=== PATIENT | female | born 1985 | race Caucasian/White ===

== ENCOUNTER 2018-05-31 08:17 | Outpatient (CLI) | payer OTHER, SELFPAY ==
[2018-05-31 08:44] LABS: Abs Immature Grans 0.01 k/cumm (0.0-0.09); Absolute Basophil Count 0.01 k/cumm (0.0-0.2); Absolute Lymphocyte Count 1.73 k/cumm (1.2-3.4); Absolute Monocyte Count 0.34 k/cumm (0.11-0.7); Absolute Neutrophil Count 5.22 k/cumm (1.2-6.7); Basophils % 0.1; Eosinophils % 3.9; HCT 37.9 % (36.0-46.0); HGB 12.4 g/dL (12.0-15.5); Immature Grans % 0.1; Lymphocytes % 22.7; Mean Corp. HGB Concentration 32.7 g/dL (32.0-36.0); Mean Corpuscular Hemoglobin 27.6 pg (27.0-33.0); Mean Corpuscular Volume 84.4 fL (80-95); Mean Platelet Volume 9.8 fL (8.0-11.0); Monocytes % 4.5; Neutrophils % 68.7; Platelet Count 293 x1000/uL (130-400); RBC 4.49 m/cumm (4.00-5.20); RBC Distribution Width 13.1 % (11.7-14.6); White Blood Cell Count 7.61 k/cumm (4.4-10.8)
[2018-05-31 10:19] LABS: ALT 16 U/L (12-78); AST 13 U/L (15-37); Albumin 3.3 g/dL (3.4-5.0); Alkaline Phosphatase 73 U/L (46-116); Anion Gap 11.5 mmol/L (3-11); BUN 10 mg/dL (7-18); Bilirubin, Total 0.6 mg/dL (0.2-1.0); CO2 24.5 mmol/L (21.0-32.0); CREATININE 0.79 mg/dL (0.55-1.02); Calcium 8.7 mg/dL (8.5-10.1); Chloride 105 mmol/L (98-107); Cholesterol 265 mg/dL (50-200); Glucose 84 mg/dL (70-100); HDL Cholesterol 73 mg/dL (40-60); LDL CHOLESTEROL 162 mg/dL (<100); Potassium 4.2 mmol/L (3.5-5.1); Sodium 141 mmol/L (136-145); Total Protein 6.8 g/dL (6.4-8.2); Triglyceride 158 mg/dL (30-150)
== END 2018-05-31 08:37 ==
PROVIDERS: PCP Nurse Practitioner Family; Visit Provider Nurse Practitioner Family
DX: K62.5 Hemorrhage of anus and rectum (principal); E78.5 Hyperlipidemia, unspecified
CPT/HCPCS: 36415; 80053; 80061; 83721; 85025

== ENCOUNTER 2018-06-25 07:02 | Day surgery (SDC) | payer OTHER, SELFPAY ==
--- NOTE | 2018-06-25 06:31 | COLE_ITS ---
Date of service: 06/25/18 Time of Service: 08:25 Colonoscopy Report Date of procedure: 06/25/18 Pre-op diagnosis general: Intermittent rectal bleeding Post-op diagnosis procedure note: other (small internal hemorrhoids) Procedure: Colonoscopy Surgeon: Annamarie Kaur Anesthesia proc note operative: other (General/ Kimberley Chris,DATABASE SUPPORT / ASA 2) Estimated blood loss (mL): 0 Pathology: none sent Complications: None Disposition: same day Indications: Ms. Flores is a 32 year old female seen in the office for intermittent rectal bleeding. She has a family history of colon cancer in her grandmother. Risks, benefits and complications have been reviewed. Complications include but are not limited to bleeding, pain, perforation, missed small lesion/polyp, sore throat, aspiration and adverse reaction to the medications. Questions were entertained and answered to their satisfaction and they wished to proceed. No guarantees were given or implied. Prep: Miralax/Dulcolax Procedure Start Time: 08:25 Procedure End Time: 08:48 Retraction Time: 13 minutes Findings: Normal colon and terminal ileum Procedure Description: After informed consent was obtained the patient was taken to the procedure room and placed in a left decubitous position. Monitors were applied and a time out was done. The patients name, date of , procedure, allergies to medications and metal in their body was reviewed. The patient was then sedated. Once sedated and comfortable a rectal exam was done. External exam was normal. Internal exam revealed a normal sphincter tone and no palpable masses. The scope was then introduced and retro-flexed. Small internal hemorrhoids were identified. The scope was then advanced to the cecum with some difficulty due to tortuous colon. The TI and appendiceal orifice were identified. The prep was adequate. The scope was then slowly retracted over 13 minutes back into the rectum. There were no polyps and no diverticula. Terminal ileum was inspected and was normal. The scope was removed and the patient was woken up and taken back to Same day surgery in stable condition. The patient tolerated the procedure well and there were no immediate complications. Follow up: The patient should follow up at 51 years old unless they develop changes in bowel habits or other new gastrointestinal complaints.
--- NOTE | 2018-06-25 06:33 | W.PM.DSUDISC ---
Discharge Plan Disposition Patient Disposition: HOME Condition: Good Discharge Details Reason For Visit: Hx of intermittent rectal bleeding Attending Provider: Annamarie Kaur Primary Care Provider: Anastasia Langford Home Meds and New Rx's Prescriptions: Continued PNV cmb#95-ferrous fumarate-FA [] 1 EACH tablet 1 ea PO DAILY RF: 0 norgestimate-ethinyl estradiol [Ortho Tri-Cyclen (28)] 1 EACH tablet 1 tab-cap PO DAILY Qty: 3 RF: 4 Discontinued bisacodyl [Dulcolax (bisacodyl)] 5 mg tablet,delayed release (DR/EC) 5 mg PO ONCE Qty: 4 RF: 0 polyethylene glycol 3350 17 gram/dose powder 255 g PO ONCE Qty: 255 RF: 0 Discharge Instructions Instructions: Colonoscopy (DC), Hemorrhoids (DC) Additional Instructions: Findings: small internal hemorrhoids Follow up: at age 51 for your next colonoscopy Follow up with your PCP as needed Please call if you develop: fevers >101.5 Nausea or Vomiting Abdominal pain that is not transient DAY SURGERY UNIT POST COLONOSCOPY INSTRUCTIONS 1. Because there will be medication in your system for the next 24 hours, you may feel a little sleepy. Your coordination will be affected. Therefore: a. Do not drive or operate dangerous equipment for 24 hours. b. Do not drink alcohol beverages for 24 hours (not even beer). c. Plan to go home and rest for the day. 2. Generally there are no restrictions on your activity after a day or so has gone by, but you may feel a bit fatigued for a few days. 3 After you arrive home you may have a light meal and return to a normal diet as you can tolerate it without feeling sick to your stomach. 4. After surgery, you may feel pain or discomfort. This should be only transient, but if it persists please contact your doctor. 5. If there are any questions regarding the findings of your procedure, please feel free to contact your doctor. 6. If you are unable to contact your doctor with a problem, contact the hospital at [phone]. 7. Continue all your regular medications unless directed otherwise. I understand the above instructions and have no questions. Signature of Patient or Responsible Adult Escort Date/Time Name of Responsible Adult Escort Signature of Nurse Date/Time Activity:: Activity as Tolerated Diet:: As Tolerated Discharge Orders Discharge Orders: Discharge Order (Routine); Ordered 06/25/18 Ordered By: Annamarie Kaur DS: Diagnosis Discharge Diagnosis (1) Rectal hemorrhage: Status: Acute (2) S/P colonoscopy: Status: Acute (3) Internal hemorrhoids: Status: Acute
[2018-06-25 07:26] VITALS: BP 122/74; PULSE 102; RESP 19; TEMP 35.5; O2SAT 100
[2018-06-25] MEDS: Lactated Ringers 1,000 ML 80 ML IV (07:35)
[2018-06-25] MEDS: Midazolam/Ketamine/Ondansetron (3/25/2MG) 1 TAB 1 EACH SL (07:56)
[2018-06-25 09:32] VITALS: BP 97/63; PULSE 72; RESP 16; TEMP 36.5; O2SAT 100
[2018-06-25 09:50] VITALS: BP 110/63; PULSE 69
== END 2018-06-25 10:40 | disposition home or self-care (01) ==
LOC: SUR 07:02
PROVIDERS: PCP Nurse Practitioner Family; Visit Provider Surgery
PROC: 0DJD8ZZ Inspection of Lower Intestinal Tract, Via Natural or Artificial Opening Endoscopic (ICD-10-PCS; CPT 45378; principal; 2018-06-25 08:15)
DX: K64.8 Other hemorrhoids (principal); K62.5 Hemorrhage of anus and rectum; Z80.0 Family history of malignant neoplasm of digestive organs; Q43.8 Other specified congenital malformations of intestine
CPT/HCPCS: 45378; 81025

== ENCOUNTER 2018-08-26 14:23 | Outpatient (CLI) | payer OTHER, SELFPAY ==
[2018-08-26 15:00] LABS: Abs Immature Grans 0.02 k/cumm (0.0-0.09); Absolute Basophil Count 0.01 k/cumm (0.0-0.2); Absolute Eosinophil Count 0.08 k/cumm (0.0-0.7); Absolute Lymphocyte Count 1.23 k/cumm (1.2-3.4); Absolute Monocyte Count 0.53 k/cumm (0.11-0.7); Absolute Neutrophil Count 6.73 k/cumm (1.2-6.7); Basophils % 0.1; Eosinophils % 0.9; HCT 36.1 % (36.0-46.0); HGB 11.9 g/dL (12.0-15.5); Immature Grans % 0.2; Lymphocytes % 14.3; Mean Corpuscular Hemoglobin 27.8 pg (27.0-33.0); Mean Corpuscular Volume 84.3 fL (80-95); Mean Platelet Volume 9.3 fL (8.0-11.0); Monocytes % 6.2; Neutrophils % 78.3; Platelet Count 258 x1000/uL (130-400); RBC 4.28 m/cumm (4.00-5.20); RBC Distribution Width 13.1 % (11.7-14.6)
[2018-08-26 15:48] LABS: D-Dimer 684 ng/mlFEU (<500)
[2018-08-26 15:53] LABS: ALT 16 U/L (12-78); AST 12 U/L (15-37); Albumin 3.1 g/dL (3.4-5.0); Alkaline Phosphatase 93 U/L (46-116); Anion Gap 9.7 mmol/L (3-11); BUN 8 mg/dL (7-18); Bilirubin, Total 0.5 mg/dL (0.2-1.0); CO2 26.3 mmol/L (21.0-32.0); Calcium 8.2 mg/dL (8.5-10.1); Chloride 101 mmol/L (98-107); FREE T4 0.72 ng/dL (0.76-1.46); Glucose 116 mg/dL (70-100); Potassium 3.9 mmol/L (3.5-5.1); Sodium 137 mmol/L (136-145); Total Protein 6.5 g/dL (6.4-8.2)
== END 2018-08-26 14:43 ==
PROVIDERS: PCP Nurse Practitioner Family; Visit Provider Nurse Practitioner Family
DX: R05 Cough (principal); R06.02 Shortness of breath; R00.0 Tachycardia, unspecified
CPT/HCPCS: 36415; 80053; 84439; 84443; 85025; 85379

== ENCOUNTER 2018-08-26 17:25 | Emergency (ER) | payer OTHER, SELFPAY ==
--- NOTE | 2018-08-26 17:26 | DI.CT_ITS ---
SYMPTOM/DIAGNOSIS: SOB, ELEVATED D DIMER PE CHEST CT: CT angiography was performed with multi slice acquisition and multi planar and 3D reconstruction. CT scan of the chest was performed according to the pulmonary embolus protocol. No priors for comparison. There is no evidence of a pulmonary embolus. The thoracic aorta is of normal caliber. No evidence of dissection or aneurysm. Heart size is within normal limits. No significant pericardial effusion is seen. No evidence of right ventricular dysfunction is present. Mildly enlarged lymph nodes are seen in the left hilum which are likely reactive. No other significant thoracic adenopathy is appreciated. No pleural effusion or pneumothorax is identified. There is a nodular infiltrate seen in the left lower lobe, most suggestive of an infectious or inflammatory process. The lungs are otherwise clear. The tracheobronchial tree is unremarkable. The bones are intact. IMPRESSION: No evidence of a pulmonary embolus, thoracic aortic dissection or aneurysm. Air space infiltrate seen in the left lower lobe most suggestive of an infectious or inflammatory process.
[2018-08-26 17:34] VITALS: PULSE 105; RESP 19; TEMP 36.5; O2SAT 99
--- NOTE | 2018-08-26 17:45 | ED.GENADUL_ITS ---
Discharge Plan Disposition Patient Disposition: HOME Condition: Stable Discharge Details Chief Complaint: SOB Clinical Impression: Shortness of breath, D-dimer, elevated, CAP (community acquired pneumonia) Primary Care Provider: Anastasia Langford ED Provider: Eric Guadalupe Home Meds and New Rx's Prescriptions: New levofloxacin 750 mg tablet 750 mg PO DAILY Qty: 4 RF: 0 No Action PNV cmb#95-ferrous fumarate-FA [] 1 EACH tablet 1 ea PO DAILY RF: 0 Discharge Instructions Instructions: Community Acquired Pneumonia (ED) Additional Instructions: if not better in a week see your primary care provider if you feel you are becoming more ill, have worsening shortness of breath or persistent vomit return to the emergeny department Medical Decision Making 32 yo female who denies chronic medical problems comes in with chief complaint of cough for 7 days and shortness of breath since yesterday. Denies chest pain, n/v, fevers. She had labs done with her pcp today and she had a d dimer over 600 so was referred here. She is in no distress on exam with clear lungs, denies a ny recent surgerires or immobilization. She is noted to have low grade tachycadia in the 110's. She had an ekg at her pcp's office today which I reviewed showing sinus tachcyardia, rate of 108, no acute st twave ischemic findings. given her symptoms and elevated d dimer will obtian CTA to eval for PE and also pna. unlikely acs but will send troponin as well cta shows no Pe, does have small pneumonia. She is stable for outpatient management, advised f/u with pcp and return precautions given Imaging Data Radiologic Study: Attestation: I personally reviewed and interpreted this imaging study as follows: Imaging: CT Scan Radiologist's impression: IMPRESSION: Mild patchy somewhat nodular airspace disease/consolidation left lower lobe. Lab Data Lab results reviewed: Yes I reviewed the patient's lab results. HPI General Mode of arrival: ambulatory . Date/Time Provider Initiated Documentation: 08/26/18 17:26 . Limitations to Documentation: no limitations . Information obtained by: patient . History of Present Illness 32 year old F presents to the emergency department with the chief complaint of short of breath, described as moderate, Patient started experiencing this day(s) (1) and it has been constant. Rest improves symptom(s), Movement worsens symptoms . Patient notes cough. Patient did receive the following treatments prior to arrival, none Related Data Home Medications Medication Instructions Recorded Confirmed PNV cmb#95-ferrous fumarate-FA 1 ea PO DAILY 12/21/15 08/26/18 [] levofloxacin 750 mg PO DAILY #4 tab 08/26/18 Previous Rx's Medication Instructions Recorded levofloxacin 750 mg PO DAILY #4 tab 08/26/18 Allergies Allergy/AdvReac Type Severity Reaction Status Date / Time ACARIDES/MITES Allergy Unknown Uncoded 08/26/18 17:37 General Stated Complaint: SOB MARGO: 2 Review of Systems Review of Systems All systems reviewed & are unremarkable except as noted in HPI and below Constitutional Denies chills and Denies fever(s) Gastrointestinal Denies abdominal pain, Denies nausea and Denies vomiting Integumentary/Breasts Denies rash PFSH Medical History Internal hemorrhoids (Acute ~06/25/18) Generalized anxiety disorder (Chronic 12/07/17) Hyperlipidemia (Chronic 07/31/12) Irritable bowel syndrome with constipation and diarrhea (Chronic 12/07/17) Generalized anxiety disorder Hyperlipidemia Irritable bowel syndrome with constipation and diarrhea Surgical History S/P colonoscopy (Acute ~06/25/18) Repair, ACL (~2003) Dille teeth extraction (~2004) Family History Mother Diabetes Hyperlipidemia Hypothyroidism Asthma Father Diabetes Hyperlipidemia Sister Hyperlipidemia Grandfather Essential hypertension Depression Hyperlipidemia Hypothyroidism COPD (chronic obstructive pulmonary disease) Asthma Grandfather Myocardial infarction Lung cancer Grandmother Colon cancer Grandmother Diabetes Lung cancer Son No problems noted. Other Hypercholesterolemia Social History Smoking/Tobacco Use Status: Never Drug use: Never Do you feel safe at home: Yes Do you feel safe in your relationship?: Yes Exam Const General: no acute distress Orientation: alert HENMT Head: normal to inspection Ears: external ears normal General nose exam: external nose normal Mouth: moist mucous membranes Eyes General: appearance normal, both eyes and all related structures Neck Neck: normal visual inspection Resp Effort & Inspection: normal respiratory effort and able to speak in complete sentences Cardio Rate: tachycardic Skin General skin exam: no rashes or lesions noted Neuro General: alert and oriented x3 Extrem General: normal to inspection Psych Mental Status: mental status grossly normal Course Vital Signs Temperature 36.5 C 08/26/18 17:34 Pulse 105 H 08/26/18 17:34 Respiratory Rate 08/26/18 17:34 Pulse Oximetry 99 08/26/18 17:34 Temperature 36.5 C 08/26/18 17:34 Temperature Source Temporal Artery Scan 08/26/18 17:34 Pulse 105 H 08/26/18 17:34 Respiratory Rate 08/26/18 17:34 Pulse Oximetry 99 08/26/18 17:34 Oxygen Delivery Method Room Air 08/26/18 17:34 Oxygen Flow Rate 0 08/26/18 17:34 Pain Level 5 08/26/18 17:34
[2018-08-26 18:00] VITALS: RESP 18
[2018-08-26] MEDS: Normal Saline 1,000 ML 1000 ML IV (18:13)
[2018-08-26] MEDS: Omnipaque 350 MG/ML 100 ML BTL IJ (18:14)
[2018-08-26 18:16] LABS: INR 0.9 (0.9-1.1); PTT Activated 25.8 sec (21.0-31.4); Prothrombin Time 9.2 sec (9.3-11.0)
[2018-08-26 18:28] LABS: Troponin I < 0.02 ng/mL (0.00-0.06)
--- NOTE | 2018-08-26 18:57 | DI.VRAD_ITS ---
EXAM: CT Angiography Chest With Contrast EXAM DATE/TIME: 08/26/2018 5:27 PM CLINICAL HISTORY: 32 years old, female; Signs and symptoms and abnormal findings; Abnormal diagnostic tests; Elevated d-dimer; Cough and shortness of breath; Patient HX: SOB; Per PT: Cough for 7-10 days; TECHNIQUE: Imaging protocol: Axial computed tomographic angiography images of the chest with intravenous contrast using CT angiography protocol. Coronal and sagittal reformatted images were created and reviewed. 3D rendering: MIP reconstructed images were created and reviewed. COMPARISON: No relevant prior studies available. FINDINGS: Pulmonary arteries: Normal. No pulmonary emboli. Aorta: Normal. No aortic aneurysm. No aortic dissection. Lungs: Mild patchy somewhat nodular airspace disease/consolidation left lower lobe. Pleural space: Normal. No pneumothorax. No pleural effusion. Heart: Normal. No cardiomegaly. No pericardial effusion. Lymph nodes: Mildly prominent mediastinal and left hilar nodes. Bones/joints: Unremarkable. No acute fracture. Soft tissues: Unremarkable. IMPRESSION: Mild patchy somewhat nodular airspace disease/consolidation left lower lobe. Dictated and Authenticated by: Dada Cartagena MD. Ordering:RITCHIE Reyes MD
[2018-08-26] MEDS: levoFLOXacin 500 MG, levoFLOXacin 250 MG 750 MG PO (19:09)
== END 2018-08-26 19:15 | disposition home or self-care (01) ==
PROVIDERS: Emergency Provider Emergency Medicine; PCP Nurse Practitioner Family
DX: J18.9 Pneumonia, unspecified organism (principal); R79.1 Abnormal coagulation profile; R06.02 Shortness of breath
CPT/HCPCS: 36415; 71275; 81025; 96360; 99285; 84484; 85610; 85730; J3490

== ENCOUNTER 2018-09-12 08:51 | Outpatient (CLI) | payer OTHER, SELFPAY ==
--- NOTE | 2018-09-12 09:17 | DI.RAD_ITS ---
SYMPTOMS/DIAGNOSIS: CONTINUED SHORTNESS OF BREATH SINCE PNEUMONIA DIAGNOSIS/TREATMENT, R06.02, J18.9 PA AND LATERAL CHEST: The heart is normal in size. The lungs are clear. The mediastinal structures and pleura appear intact. CONCLUSION: Normal chest.
== END 2018-09-12 09:11 ==
PROVIDERS: PCP Nurse Practitioner Family; Visit Provider Nurse Practitioner Family
DX: J18.9 Pneumonia, unspecified organism (principal); R06.02 Shortness of breath
CPT/HCPCS: 71046

== ENCOUNTER 2018-12-31 13:33 | Outpatient (CLI) | payer BC, SELFPAY ==
[2018-12-31 14:17] LABS: HCG Quant, Pregnancy 2 mIU/mL (1-3)
== END 2018-12-31 13:53 ==
PROVIDERS: PCP Nurse Practitioner Family; Visit Provider Advanced Practice Midwife
DX: R58 Hemorrhage, not elsewhere classified (principal)
CPT/HCPCS: 36415; 84702

== ENCOUNTER 2019-02-14 11:42 | Outpatient (REF) | payer OTHER, SELFPAY ==
--- NOTE | 2019-02-14 10:40 | PAPFT_PTH ---
PATIENT: Mita Santiago LOC: [facility] U#:[id number] AGE/SX: 33/F ROOM: RE02/14/[address]: Juli Stone : 1985 BED: DIS: 02/14/2019 SPEC #: [id number] RECD: 02/14/19 13:09 STATUS: ELIZABET REAdama #: [id number] DENISE: 02/14/19 10:[address]: Juli Stone DEPT: [facility] Cytology RECD BY: Yesenia Rossi ENTERED: 02/14/19 13:10 SP TYPE: PAPFT OTHR DR: Anastasia Langford, REUBEN Tissues: 1 - CX/ENDOCX FOR PAP SMEARS Procedures: PAP THIN PREP/UVM Screening HPV DNA PROBE Comments: [id number]
[2019-02-17 14:51] LABS: Chlamydia Result Negative (Negative); GC Result Negative (Negative); Specimen Description CERVIX
== END 2019-02-14 12:02 ==
LOC: LBN 11:42
PROVIDERS: PCP Nurse Practitioner Family; Visit Provider Obstetrics & Gynecology Gynecology
DX: Z11.3 Encounter for screening for infections with a predominantly sexual mode of transmission (principal); Z12.4 Encounter for screening for malignant neoplasm of cervix; Z11.51 Encounter for screening for human papillomavirus (HPV)
CPT/HCPCS: 87491; 87591; 88142; 87624

== ENCOUNTER 2019-05-02 11:52 | Outpatient (REF) | payer OTHER, SELFPAY ==
[2019-05-02 13:44] LABS: *AMPHETAMINES SCREEN URINE Negative (Negative); *BARBITURATES SCREEN URINE Negative (Negative); *BENZODIAZEPINES SCREEN URINE Negative (Negative); Cannabinoids THC Negative (Negative); Cocaine Screen,Urine Negative (Negative); METHADONE URINE SCREEN Negative (Negative); OPIATES URINE SCREEN Negative (Negative)
[2019-05-02 13:47] LABS: Tricyclic Antidepressants Negative (Negative)
[2019-05-07 10:24] LABS: Buprenorphine Negative; Norbuprenorphine Negative
== END 2019-05-02 12:12 ==
LOC: LBN 11:52
PROVIDERS: PCP Nurse Practitioner Family; Visit Provider Advanced Practice Midwife
DX: Z34.91 Encounter for supervision of normal pregnancy, unspecified, first trimester (principal)
CPT/HCPCS: 80307; 87086

== ENCOUNTER 2019-05-09 02:38 | Outpatient (CLI) | payer OTHER, SELFPAY ==
[2019-05-09 08:51] LABS: Kit/Specimen SENT
[2019-05-09 09:04] LABS: Abs Immature Grans 0.02 k/cumm (0.0-0.09); Absolute Eosinophil Count 0.11 k/cumm (0.0-0.7); Absolute Lymphocyte Count 1.38 k/cumm (1.2-3.4); Absolute Monocyte Count 0.43 k/cumm (0.11-0.7); Absolute Neutrophil Count 4.51 k/cumm (1.2-6.7); Eosinophils % 1.7; HCT 35.9 % (36.0-46.0); HGB 11.7 g/dL (12.0-15.5); Immature Grans % 0.3 %; Lymphocytes % 21.4; Mean Corp. HGB Concentration 32.6 g/dL (32.0-36.0); Mean Corpuscular Hemoglobin 27.5 pg (27.0-33.0); Mean Corpuscular Volume 84.3 fL (80-95); Mean Platelet Volume 9.3 fL (8.0-11.0); Monocytes % 6.7; Neutrophils % 69.9; Platelet Count 276 x1000/uL (130-400); RBC 4.26 m/cumm (4.00-5.20); RBC Distribution Width 13.1 % (11.7-14.6); White Blood Cell Count 6.45 k/cumm (4.4-10.8)
[2019-05-09 09:11] LABS: Glucose,1 Hr (Glucola) 92 mg/dL (80-140)
[2019-05-09 09:46] LABS: TSH (W/Ref FT4) 2.01 uIU/mL (0.36-3.74)
[2019-05-10 16:19] LABS: Syphilis Total Ab w/Reflex Nonreactive (Nonreactive)
[2019-05-12 12:15] LABS: Hepatitis B Surface Ag Negative (Negative)
[2019-05-12 12:39] LABS: Hepatitis C Ab w Rflx HCV PCR Negative (Negative)
[2019-05-12 14:22] LABS: HIV-1/2 Ag & Ab Screen Negative (Negative)
[2019-05-12 15:13] LABS: Rubella IgG Ab (UVM) Positive (See Note); Varicella IgG Antibody Positive (See Note)
[2019-05-14 21:43] LABS: Specimen WB Whole Blood
== END 2019-05-09 02:58 ==
PROVIDERS: PCP Nurse Practitioner Family; Visit Provider Advanced Practice Midwife
DX: Z34.91 Encounter for supervision of normal pregnancy, unspecified, first trimester (principal); Z36.89 Encounter for other specified antenatal screening; Z11.4 Encounter for screening for human immunodeficiency virus [HIV]; Z11.59 Encounter for screening for other viral diseases; Z01.84 Encounter for antibody response examination
CPT/HCPCS: 36415; 81329; 82950; 86787; 86803; 86850; 86900; 86901; 87340; 87389; 84443; 85025; 86762; 86780

== ENCOUNTER 2019-05-30 14:15 | Outpatient (REF) | payer OTHER, SELFPAY ==
[2019-06-02 14:37] LABS: Chlamydia Result Negative (Negative); GC Result Negative (Negative)
== END 2019-05-30 14:35 ==
LOC: LBN 14:15
PROVIDERS: PCP Nurse Practitioner Family; Visit Provider Advanced Practice Midwife
DX: Z34.91 Encounter for supervision of normal pregnancy, unspecified, first trimester (principal); Z11.3 Encounter for screening for infections with a predominantly sexual mode of transmission
CPT/HCPCS: 87491; 87591

== ENCOUNTER 2019-06-30 02:06 | Outpatient (CLI) | payer OTHER, SELFPAY ==
[2019-07-02 12:09] LABS: Cigarette smoking status non-Smoker; GA used in risk estimate Dates estimate; IVF Pregnancy No; Initial or repeat testing Initial testing; Insulin dependent diabetes No; Maternal Weight 178 lbs; Number of Fetuses 1; Physician Phone Number 802-748-7300; Prev Pregnancy w/NTD No; RECOMMENDED FOLLOW UP None.; Results Summary Normal risk
== END 2019-06-30 02:26 ==
PROVIDERS: PCP Nurse Practitioner Family; Visit Provider Advanced Practice Midwife
DX: Z34.92 Encounter for supervision of normal pregnancy, unspecified, second trimester (principal); Z36.89 Encounter for other specified antenatal screening
CPT/HCPCS: 36415; 82105

== ENCOUNTER 2019-07-03 01:44 | Outpatient (CLI) | payer OTHER, SELFPAY ==
--- NOTE | 2019-07-03 10:58 | DI.US_ITS ---
EXAM: US OB 2-3 TRIMESTER CLINICAL HISTORY: 18 wk anatomy survey, Z34.90. TECHNIQUE: Transabdominal obstetrical ultrasound performed. COMPARISON: CERVICAL LENGTH TRANSVAG OB from 07/10/2016 FINDINGS: There is a single living intrauterine gestation. Fetus was in various positions during the examination. The placenta is anterior without evidence of previa No or placental abnormalities are identified. The heart rate is 152 beats per minute. Amniotic fluid is within normal limits visually. IMPRESSION: 1. Single live intrauterine gestation as above. 2. Normal anatomic survey. DATA REPOSITORY:
== END 2019-07-03 02:04 ==
PROVIDERS: PCP Nurse Practitioner Family; Visit Provider Advanced Practice Midwife
DX: Z34.92 Encounter for supervision of normal pregnancy, unspecified, second trimester (principal); Z3A.18 18 weeks gestation of pregnancy
CPT/HCPCS: 76805

== ENCOUNTER 2019-07-05 08:51 | Emergency (ER) | payer OTHER, SELFPAY ==
[2019-07-05 08:55] VITALS: BP 141/71; PULSE 98; RESP 18; TEMP 36.5; O2SAT 98
[2019-07-05 09:10] VITALS: RESP 16
--- NOTE | 2019-07-05 09:21 | ED.GENADUL_ITS ---
Discharge Plan Disposition Patient Disposition: HOME Condition: Stable Discharge Details Chief Complaint: GenMedical Clinical Impression: Encounter for wound care Primary Care Provider: Anastasia Langford ED Provider: Suzy Holland Home Meds and New Rx's Prescriptions: No Action ascorbic acid (vitamin C) 500 mg capsule PO DAILY RF: 0 Adult Probiotic 3 billion cell capsule 3,000 mmu cells PO DAILY RF: 0 iron 18 mg tablet 27 mg PO DAILY RF: 0 PNV cmb#95-ferrous fumarate-FA [] 1 EACH tablet 1 ea PO DAILY RF: 0 Discharge Instructions Instructions: Acute Wound Care (ED) Additional Instructions: Wash area gently with soap and water once or twice daily. Pat dry completely and apply topical antibiotic ointment and a dressing until wound is healed. Observe for any signs of infection. Return for any worsening, concerns or alarming symptoms sooner if needed Medical Decision Making Patient presents for wound check. Patient had skin tag removed 2 days ago. Patient is concerned that her dressing is adhered to her wound. Patient is requesting assistance in her wound management. Patient has no other concerns or complaints. Able to remove dressing without significant difficulty. Wound does appear well without signs of infection currently. Wound management discussed. The patient was stable and requested discharge. Prior to discharge, my usual and customary return precautions were reviewed with the patient - this included follow-up instructions and reasons to return to the Emergency Department if conditions worsens, does not improve as expected, or other new concerns arise. HPI General Date/Time Provider Initiated Documentation: 07/05/19 09:07 . HPI Narrative: Very pleasant 33-year-old patient presents for complaints of wound adhered to her dressing. Patient reports she had a skin tag removed 2 days ago. Patient was due to remove dressing after the first day but has been unable as the dressing is matted to her wound. Patient reports pain when attempting to remove the dressing. Patient reports a small amount of bleeding when she attempted to move the dressing. Patient denies any other concerns or complaints. Patient is currently 18 weeks . No other concerns at this time. Related Data Home Medications Medication Instructions Recorded Confirmed PNV cmb#95-ferrous fumarate-FA 1 ea PO DAILY 12/21/15 07/05/19 [] ascorbic acid (vitamin C) 500 mg mg PO DAILY cap 11/29/18 07/03/19 capsule lactobacillus combination no.8 3 3,000 mmu cells PO DAILY 11/29/18 07/05/19 billion cell capsule iron 18 mg tablet 27 mg PO DAILY tab 05/30/19 07/05/19 Allergies Allergy/AdvReac Type Severity Reaction Status Date / Time ACARIDES/MITES Allergy Unknown Uncoded 07/05/19 09:00 General Stated Complaint: GenMedical MARGO: 4 Review of Systems Constitutional Constitutional: Denies chills and Denies fever(s) Gastrointestinal Gastrointestinal: Denies abdominal pain Integumentary/Breasts Skin/Breast: Denies erythema, Denies skin swelling and Reports wounds [facility] Medical History Generalized anxiety disorder (Chronic) Hyperlipidemia (Chronic) Internal hemorrhoids (Inactive) Irritable bowel syndrome with constipation and diarrhea (Chronic) Left carpal tunnel syndrome (Inactive) Social History Smoking/Tobacco Use Status: Never Alcohol Intake: current Alcohol Intake frequency: holidays/special occasions only Alcohol type: hard liquor Drug use: Never Substance use type: does not use Caregiver/Support person: No Household members: spouse and children Housing: house Number of Children: 1 Education Level: college Details: 4yrs current occupation: [employer]. Pets and animals: Yes Pets and animals: dog(s) Sexually active: Yes Do you think of yourself as: straight/heterosexual Current gender identity: female What is your relationship status?: How often do you talk on the phone with friends or family?: three or more times per week How often do you get together with friends or relatives?: three or more times per week How often do you attend yazidi or shinto services?: decline to answer Do you belong to any clubs or organized social groups?: yes Panel score (0-1 are the most socially isolated patients): 3 What type of physical activity do you participate in: other Details: home exercises and yoga Duration: 15-30 minutes/day Frequency: 3-4 times per week Kylee/Mosque: None Special kylee needs: No Seatbelt use: always Helmet use: Yes Helmet use: always Drive intox or ride w/intox sales warehouse driver: No Do you feel safe at home: Yes Do you feel safe in your relationship?: Yes Female Reproductive History Menstrual control method: none History History 3 Para 1 Hx # Term Pregnancies 1 Multiple births 0 Hx # Pregnancies 0 Ectopic pregnancies 0 AB induced 0 Hx Number of Living Children 1 AB spontaneous 1 Past Pregnancies Del. Date GA/Weeks # Outcome Route Wgt Sex Labor Lgth Anesthes ia Location [facility] 08/14/16 38 No Successful vaginal 2.778 kg Male 8 hrs N VR - [facility] [employer] ([facility]) 01/08/19 Unsuccessful Delivery Date: 08/14/16 On 05/02/19 @ 09:49 Lorene Marcelino SROM at home, spont labor, no complications Delivery Date: 01/08/19 On 05/02/19 @ 10:13 Lorene Marcelino SAB, had unsatisfactory experience with staff, didn't feel well treated Exam Narrative Exam Narrative: CONST: Healthy appearing patient, in no acute distress. Well hydrated. Alert and oriented. GI: Gravid abdomen. Abdomen is soft. Small wound approximately 1 cm noted to the right lower quadrant area. Wound dressing adhered to the wound. Wound dressing fairly easily removed without sign of complication. Wound edges well approximated. Mild drainage present no surrounding erythema, ecchymosis present surrounding. SKIN: Normal. Dry. No rashes. NEURO: Alert and awake. Speech clear. PSYCH: Normal affect. Cooperative. Course Vital Signs Vital signs: Vital Signs Temperature 36.5 C 07/05/19 08:55 Pulse 98 H 07/05/19 08:55 Respiratory Rate 18 07/05/19 08:55 Blood Pressure 141/71 H 07/05/19 08:55 Pulse Oximetry 98 07/05/19 08:55 Temperature 36.5 C 07/05/19 08:55 Temperature Source Tympanic 07/05/19 08:55 Pulse 98 H 07/05/19 08:55 Respiratory Rate 16 07/05/19 09:10 Respiratory Effort Non-Labored 07/05/19 09:10 Respiratory Depth Normal 07/05/19 09:10 Respiratory Pattern Normal 07/05/19 09:10 Blood Pressure 141/71 H 07/05/19 08:55 Blood Pressure Position Sitting 07/05/19 08:55 Pulse Oximetry 98 07/05/19 08:55 Oxygen Delivery Method Room Air 07/05/19 08:55 Oxygen Flow Rate 0 07/05/19 08:55 Pain Level 0 07/05/19 08:55
== END 2019-07-05 09:24 | disposition home or self-care (01) ==
PROVIDERS: Emergency Provider Physician Assistant; PCP Nurse Practitioner Family
DX: O99.89 Other specified diseases and conditions complicating pregnancy, childbirth and the puerperium (principal); Z48.00 Encounter for change or removal of nonsurgical wound dressing; Z3A.18 18 weeks gestation of pregnancy
CPT/HCPCS: 99281

== ENCOUNTER 2019-08-20 13:33 | Outpatient (REF) | payer OTHER, SELFPAY ==
[2019-08-22 11:01] LABS: Campylobacter PCR Negative (Negative); Salmonella PCR Negative (Negative); Shiga Toxin PCR Negative (Negative); Shigella/Enteroinvasive Ecoli Negative (Negative)
== END 2019-08-20 13:53 ==
LOC: LBN 13:33
PROVIDERS: PCP Nurse Practitioner Family; Visit Provider Nurse Practitioner Family
DX: R19.5 Other fecal abnormalities (principal)
CPT/HCPCS: 87329; 87505

== ENCOUNTER 2019-08-22 02:11 | Outpatient (CLI) | payer OTHER, SELFPAY ==
[2019-08-22 10:16] LABS: HCT 32.2 % (36.0-46.0); HGB 10.6 g/dL (12.0-15.5); Mean Corp. HGB Concentration 32.9 g/dL (32.0-36.0); Mean Corpuscular Volume 85.2 fL (80-95); Mean Platelet Volume 9.3 fL (8.0-11.0); Platelet Count 277 x1000/uL (130-400); RBC 3.78 m/cumm (4.00-5.20); RBC Distribution Width 13.5 % (11.7-14.6)
[2019-08-22 11:18] LABS: ALT 21 U/L (14-59); AST 13 U/L (15-37); Albumin 2.7 g/dL (3.4-5.0); Alkaline Phosphatase 82 U/L (46-116); Anion Gap 10.4 mmol/L (3-11); BUN 8 mg/dL (7-18); Bilirubin, Total 0.4 mg/dL (0.2-1.0); CO2 22.6 mmol/L (21.0-32.0); CREATININE 0.66 mg/dL (0.55-1.02); Calcium 8.3 mg/dL (8.5-10.1); Chloride 104 mmol/L (98-107); Glucose 133 mg/dL (74-106); Potassium 3.5 mmol/L (3.5-5.1); Sodium 137 mmol/L (136-145); Total Protein 6.1 g/dL (6.4-8.2)
== END 2019-08-22 02:31 ==
PROVIDERS: PCP Nurse Practitioner Family; Visit Provider Nurse Practitioner Family
DX: R19.5 Other fecal abnormalities (principal)
CPT/HCPCS: 36415; 80053; 85027

== ENCOUNTER 2019-09-11 12:01 | Outpatient (CLI) | payer OTHER, SELFPAY ==
[2019-09-11 12:37] LABS: HCT 32.9 % (36.0-46.0); HGB 10.6 g/dL (12.0-15.5); Mean Corp. HGB Concentration 32.2 g/dL (32.0-36.0); Mean Corpuscular Hemoglobin 27.7 pg (27.0-33.0); Mean Corpuscular Volume 85.9 fL (80-95); Mean Platelet Volume 9.4 fL (8.0-11.0); Platelet Count 288 x1000/uL (130-400); RBC 3.83 m/cumm (4.00-5.20); RBC Distribution Width 13.5 % (11.7-14.6); White Blood Cell Count 10.34 k/cumm (4.4-10.8)
[2019-09-11 12:49] LABS: Glucose,1 Hr (Glucola) 122 mg/dL (80-140)
== END 2019-09-11 12:21 ==
PROVIDERS: PCP Nurse Practitioner Family; Visit Provider Advanced Practice Midwife
DX: Z34.92 Encounter for supervision of normal pregnancy, unspecified, second trimester (principal)
CPT/HCPCS: 82950; 85027

== ENCOUNTER 2019-10-22 18:29 | Outpatient (CLI) | payer OTHER, SELFPAY | END 2019-10-22 18:49 | PROVIDERS: PCP Nurse Practitioner Family; Referring Provider Advanced Practice Midwife; Visit Provider Advanced Practice Midwife | DX: O60.03 Preterm labor without delivery, third trimester (principal); Z3A.34 34 weeks gestation of pregnancy | CPT/HCPCS: 59025 ==

== ENCOUNTER 2019-11-03 10:11 | Outpatient (CLI) | payer OTHER, SELFPAY | END 2019-11-03 10:31 | PROVIDERS: PCP Nurse Practitioner Family | DX: Z39.1 Encounter for care and examination of lactating mother (principal) | CPT/HCPCS: E0602 ==

== ENCOUNTER 2019-11-03 13:28 | Outpatient (REF) | payer OTHER, SELFPAY ==
[2019-11-03 17:20] LABS: *AMPHETAMINES SCREEN URINE Negative (Negative); *BARBITURATES SCREEN URINE Negative (Negative); *BENZODIAZEPINES SCREEN URINE Negative (Negative); Cannabinoids THC Negative (Negative); Cocaine Screen,Urine Negative (Negative); METHADONE URINE SCREEN Negative (Negative); OPIATES URINE SCREEN Negative (Negative)
[2019-11-03 17:23] LABS: Tricyclic Antidepressants Negative (Negative)
[2019-11-08 12:49] LABS: Buprenorphine Negative; Norbuprenorphine Negative
== END 2019-11-03 13:48 ==
LOC: LBN 13:28
PROVIDERS: PCP Nurse Practitioner Family; Visit Provider Advanced Practice Midwife
DX: Z34.93 Encounter for supervision of normal pregnancy, unspecified, third trimester (principal); Z36.85 Encounter for antenatal screening for Streptococcus B
CPT/HCPCS: 80307; 87081

== ENCOUNTER 2019-11-06 13:05 | Outpatient (CLI) | payer OTHER, SELFPAY ==
[2019-11-08 23:59] LABS: COVID-19 RT-PCR Result NEGATIVE (Negative)
== END 2019-11-06 13:25 ==
PROVIDERS: PCP Nurse Practitioner Family; Visit Provider Advanced Practice Midwife
DX: O60.03 Preterm labor without delivery, third trimester (principal); Z3A.36 36 weeks gestation of pregnancy; Z11.59 Encounter for screening for other viral diseases
CPT/HCPCS: U0003; 59025

== ENCOUNTER 2019-11-10 07:33 | Observation (INO) | payer OTHER, SELFPAY ==
[2019-11-10] MEDS: Terbutaline 1 MG/ML VIAL 0.25 MG SC (08:41)
[2019-11-10] MEDS: Lactated Ringers 1,000 ML 200 ML IV (08:45)
--- NOTE | 2019-11-10 12:42 | W.PM.OP ---
Date of service: 11/10/19 Time of Service: 12:43 Operative Note Operative Note DATE OF PROCEDURE: 11/10/19 PRE-OP DIAGNOSIS: Breech presentation POST-OP DIAGNOSIS: same PROCEDURE: Attempted external cephalic version SURGEON: Juli Stone HAND [employer]: Christie Neely COMPLICATIONS: None Patient was transported to: no change Patient's condition: stable Indications: Patient is a 34-year-old G3, P1 female currently at 37 weeks estimated gestational age fetus was diagnosed as a breech presentation several weeks ago. Patient was counseled regarding treatment options and has agreed to a external cephalic version. She was counseled beforehand regarding the procedure including the risk of damage to the fetus and placenta requiring a emergent delivery. She was also counseled that 50% chance of failure to achieve a vertex presentation Findings: Viable infant with head to maternal left and spine down corresponding to maternal spine. Subjectively adequate amniotic fluid. Procedure Description: Patient was admitted for observation status on the center. An IV was placed in the left antecubital space and she received 0.25 mg of subcutaneous terbutaline. heart rate category 1 tracing occasional contractions noted on external tocometer. After verbal consent was obtained the patient was placed in the dorsal supine position and breech presentation was confirmed by bedside ultrasound. A single gloved hand was used to elevate the presenting part of the fetus from the pelvis while single of hand was used to gently guide the cranium and leftward counterclockwise direction. Unable to head past 90 degrees over the course of 1-1/2 minutes of downward traction. Patient was given option of a repeat attempt at external cephalic version which she accepted. Repeat ultrasound evaluation of the fetus confirmed similar presentation with spine tumor maternal spine. Once again the presenting part was lifted out of the pelvis and an attempt at a counterclockwise manipulation of the fetus and trunk was attempted and was once again unsuccessful. Intermittent heart rate monitoring was reassuring. Patient was uncomfortable but tolerated it well. The procedure was Concluded and the patient was counseled regarding treatment options including a delivery. She will follow-up in the office this week to discuss planning a delivery date. Patient was also counseled regarding signs and symptoms of rupture membranes fluid leakage bleeding and uterine contractions.
--- NOTE | 2019-11-11 09:06 | W.PM.OP ---
Operative Note Operative Note DATE OF PROCEDURE: 11/10/19 PRE-OP DIAGNOSIS: Breech presentation POST-OP DIAGNOSIS: same PROCEDURE: Attempted external cephalic version SURGEON: Juli Stone CYBER SECURITY ANALYST: Christie Neely ANESTHESIA: none ESTIMATED BLOOD LOSS: 0 COMPLICATIONS: None Patient was transported to: no change Patient's condition: stable Implants: Attempted external cephalic version Indications: 34-year-old female currently 37 weeks estimated stational age with a known breech presentation. Patient was counseled regarding external cephalic version versus expectant management as agreed to external cephalic version. Findings: Fetus in a complete breech presentation with spine to maternal back and head in the left upper quadrant. Anterior placenta Procedure Description: After verbal consent was obtained patient received 0.25 mg terbutaline injection. Approximately 15 minutes after the injection she was placed in the dorsal supine position and gentle pressure was made above the pubic symphysis in an effort to direct the presenting part out of the pelvis. The head was then gently directed clockwise to approximately 3 o'clock position on the maternal abdomen. There was no forward progress made and the procedure was halted and position and heart rate checked. heart rate was in the 150s and position had reverted to breech. After period of recovery for the patient the procedure was attempted again once again using a clockwise direction with no progress beyond a 3 o'clock position. The procedure was stopped heart rate was again checked and remained in the 150s. presenting part remained breech. Patient was observed for approximately 45 minutes with continuous monitoring with occasional contractions noted and a category 1 heart rate tracing.
== END 2019-11-10 10:10 | disposition home or self-care (01) ==
PROVIDERS: Admitting Provider Obstetrics & Gynecology Gynecology; PCP Nurse Practitioner Family; Visit Provider Obstetrics & Gynecology Gynecology
DX: O32.1XX0 Maternal care for breech presentation, not applicable or unspecified (principal); Z3A.37 37 weeks gestation of pregnancy
CPT/HCPCS: 59412; 96360; G0378

== ENCOUNTER 2019-11-18 03:52 | Outpatient (CLI) | payer OTHER, SELFPAY ==
[2019-11-18 11:45] LABS: HCT 35.3 % (36.0-46.0); HGB 11.3 g/dL (12.0-15.5); Mean Corpuscular Hemoglobin 26.9 pg (27.0-33.0); Mean Platelet Volume 10.2 fL (8.0-11.0); Platelet Count 282 x1000/uL (130-400); RBC Distribution Width 15.8 % (11.7-14.6); White Blood Cell Count 12.08 k/cumm (4.4-10.8)
== END 2019-11-18 04:12 ==
PROVIDERS: PCP Nurse Practitioner Family; Visit Provider Obstetrics & Gynecology
DX: Z01.818 Encounter for other preprocedural examination (principal)
CPT/HCPCS: 36415; 85027; 86850; 86900; 86901

== ENCOUNTER 2019-11-18 08:18 | Outpatient (CLI) | payer OTHER, SELFPAY ==
[2019-11-20 08:21] LABS: COVID-19 RT-PCR Result NEGATIVE (Negative)
== END 2019-11-18 08:38 ==
PROVIDERS: PCP Nurse Practitioner Family; Visit Provider Obstetrics & Gynecology Gynecology
DX: Z11.59 Encounter for screening for other viral diseases (principal)
CPT/HCPCS: U0003

== ENCOUNTER 2019-11-21 10:28 | Inpatient (IN) | payer OTHER, SELFPAY ==
[2019-11-21 10:45] VITALS: BP 131/86; PULSE 86; RESP 16; TEMP 36.5; O2SAT 94
--- NOTE | 2019-11-21 11:06 | W.PM.PROGNOT ---
Date of Service Date of service: 11/21/19 Time of Service: 11:06 Subjective Subjective Interval history since last seen: Patient was seen in the preoperative holding area this morning. Bedside ultrasound performed, confirming fetus in the breech presentation back up footling. Patient continues to have strong and regular contractions. We again had a lengthy conversation regarding operative delivery and its risks and benefits. We also discussed her antibiotic regime. She has had some oral lesions shortly after antibiotic therapy with penicillin derivatives. She also has been seen with the allergy clinic at [facility] and would prefer not to have penicillin based antibiotics. Clindamycin and gentamicin ordered for her preoperative regime. Objective Objective Clinical Data: Vital Signs Temperature 97.7 F 11/21/19 10:45 Pulse 86 11/21/19 10:45 Pulse Rhythm Regular 11/21/19 10:45 Respiratory Rate 16 11/21/19 10:45 Respiratory Depth Normal 11/21/19 10:45 Blood Pressure 131/86 11/21/19 10:45 Pulse Oximetry 94 L 11/21/19 10:45 Oxygen Delivery Method Room Air 11/21/19 10:45 Oxygen Flow Rate 0 11/21/19 10:45 Intake & Output 11/20/19 11/20/19 11/21/19 11:59 23:59 11:59 Weight 209 lb 15.986 oz
[2019-11-21] MEDS: Lactated Ringers 1,000 ML 125 ML IV (11:50)
[2019-11-21] MEDS: CLINDAMYCIN 900 MG/50 ML BAG 50 MG IVPB (12:10)
--- NOTE | 2019-11-21 13:55 | ROE_ITS ---
Date of service: 11/21/19 Time of Service: 13:55 Operative Note Operative Note DATE OF PROCEDURE: 11/21/19 PRE-OP DIAGNOSIS: at 38-5/7 weeks, breech presentation, contractions PROCEDURE: Primary low transverse section ASSISTING SURGEON: Sam Lazaro ANESTHESIA: spinal ESTIMATED BLOOD LOSS: 500 PATHOLOGY: none sent COMPLICATIONS: None Patient was transported to: floor Patient's condition: stable Indications: Term , known breech presentation, early labor, significant history of anxiety Findings: Viable female infant delivered from the breech presentation Procedure Description: Patient is a 34-year-old 2 para 1 with a known breech presentation. She had attempted and failed external cephalic version. She requests primary section. The risks, benefits, and alternatives of procedure explained to the patient fluting risk of infection, bleeding, injury to surrounding organs, anesthetic risk, thromboembolic risk, anesthesia risk, risk of , and small but present risk of distress or respiratory distress Patient was taken to the operating suite with IV running. She was placed in the seated position and spinal anesthesia tested administered and found to be adequate. She was then placed in dorsal supine position with leftward tilt and prepped and draped in usual sterile fashion. Mcarthur catheter was inserted for continuous bladder drainage. Compression stockings were placed. Pfannenstiel skin incision was made usual fashion carried down to the underlying fascia. Fascia was nicked in the midline and extended laterally. Rectus muscles identified split in the midline peritoneum identified tented up and entered sharply. The peritoneal incision was then extended superiorly and inferiorly and a DeLee bladder blade was inserted. The vesicouterine peritoneum was identified and bladder flap created. A low transverse uterine incision was made in the uterus and extended bluntly laterally. She had artificial rupture of membranes for clear fluid. Baby was noted to be in the single footling breech presentation. The sacrum was delivered through the uterine incision and with gentle downward traction the body delivered to the point that scapulas were weakened. With clockwise rotation the left arm was delivered and co unterclockwise rotation delivered the right arm gentle elevation of the body with the head allowed him to deliver without trauma. There is no evidence of nuchal cord. Three-vessel cord was noted clamped x2 and cut and the was handed off to the waiting buffing wheel former machine. At this point cord blood gases cord blood sample were both obtained. Delivered with manual expression. Uterus exteriorized and cleared of all clot and debris. The uterine incision was closed in a double layer fashion with the first layer of #1 Monocryl in a running locked fashion and a second imbricating stitch of 0 Vicryl. There was one area at the right apex of the incision with a distal extension and a modified O'Watkins stitch placed to control hemostasis. At this point the abdomen was irrigated with copious amounts of normal saline the uterine incision was reexplored and found to be completely hemostatic and instruments were removed from the abdomen. The fascial incision was then closed using 0 Vicryl suture in a running fashion subcutaneous tissue irrigated with copious amounts of normal saline and reapproximated with 2-0 Vicryl in a simple interrupted fashion. Skin edge was closed with 4-0 Monocryl in a subcuticular fashion Steri-Strips were placed. Patient was then returned to a labor bed and returned to the obstetric floor. Findings were delivered of a viable female infant with Apgars of 8 and 9. Weight is pending. Delivered in the breech presentation. As of note, there is a small, approximately 2 cm left fundal fibroid at the time of delivery. Uterus tubes and ovaries were normal. Blood loss approximately 500 cc fluids are crystalloid per anesthesia at 800 cc Mcarthur catheter is in place draining clear yellow urine. Complications are none apparent.
[2019-11-21] MEDS: Normal Saline Flush 10 ML SYR IV ×2 (17:22→20:42)
[2019-11-21] MEDS: Metoclopramide 10 MG/2 ML VIAL IVP (17:23)
[2019-11-21] MEDS: Ketorolac 30 MG/ML VIAL IVP (20:41)
[2019-11-22] MEDS: Ketorolac 30 MG/ML VIAL IVP ×2 (02:11→10:10)
[2019-11-22 07:09] LABS: HCT 29.3 % (36.0-46.0); HGB 9.4 g/dL (12.0-15.5); Mean Corp. HGB Concentration 32.1 g/dL (32.0-36.0); Mean Corpuscular Hemoglobin 27.2 pg (27.0-33.0); Mean Corpuscular Volume 84.9 fL (80-95); Mean Platelet Volume 9.6 fL (8.0-11.0); Platelet Count 212 x1000/uL (130-400); RBC 3.45 m/cumm (4.00-5.20); RBC Distribution Width 16.1 % (11.7-14.6); White Blood Cell Count 12.36 k/cumm (4.4-10.8)
[2019-11-22] MEDS: Normal Saline Flush 10 ML SYR IV (10:09)
[2019-11-22] MEDS: Acetaminophen 325 MG TAB 650 MG PO ×2 (13:41→18:23)
[2019-11-22] MEDS: Ibuprofen 600 MG TAB (16:51)
[2019-11-22] MEDS: Docusate Sodium 100 MG CAP PO (16:51)
[2019-11-22] MEDS: oxyCODONE 5 mg/Acetaminophen 325 mg TAB PO (19:21)
[2019-11-23] MEDS: oxyCODONE 5 mg/Acetaminophen 325 mg TAB PO ×7 (00:15→22:55)
--- NOTE | 2019-11-23 08:15 | W.PM.PROGNOT ---
Date of Service Date of service: 11/22/19 Time of Service: 08:15 Assessment and Plan Assessment and plan (1) S/P section: Status: Acute Assessment and plan: Continue routine post op care. Encourage ambulation. Subjective Subjective Interval history since last seen: Doing well. Pain well controlled. Not yet ambulatory Tolerating regular diet. No nausea or vomiting. Objective Objective Clinical Data: Vital Signs Temperature 97.7 F 11/21/19 10:45 Pulse 86 11/21/19 10:45 Pulse Rhythm Regular 11/21/19 10:45 Respiratory Rate 16 11/21/19 10:45 Respiratory Depth Normal 11/21/19 10:45 Blood Pressure 131/86 11/21/19 10:45 Pulse Oximetry 94 L 11/21/19 10:45 Oxygen Delivery Method Room Air 11/21/19 10:45 Oxygen Flow Rate 0 11/21/19 10:45 Pain Level 4 11/23/19 05:40 Laboratory Results WBC 12.36 k/cumm (4.4-10.8) H 11/22/19 07:00 RBC 3.45 m/cumm (4.00-5.20) L 11/22/19 07:00 Hgb 9.4 g/dL (12.0-15.5) L 11/22/19 07:00 Hct 29.3 % (36.0-46.0) L 11/22/19 07:00 MCV 84.9 fL (80-95) 11/22/19 07:00 MCH 27.2 pg (27.0-33.0) 11/22/19 07:00 MCHC 32.1 g/dL (32.0-36.0) 11/22/19 07:00 RDW 16.1 % (11.7-14.6) H 11/22/19 07:00 Plt Count 212 x1000/uL (130-400) 11/22/19 07:00 MPV 9.6 fL (8.0-11.0) 11/22/19 07:00
--- NOTE | 2019-11-23 08:18 | W.PM.PROGNOT ---
Date of Service Date of service: 11/23/19 Time of Service: 08:18 Assessment and Plan Assessment and plan (1) S/P section: Status: Acute Assessment and plan: Uncomplicated postoperative course. Plan for discharge home tomorrow. May discharge home as early as this afternoon if desired. Subjective Subjective Interval history since last seen: No problems this morning Pain well controlled Ambulatory Tolerating regular diet . Minimal lochia Exam GI Other: Incision C/D/I - Dressing removed. Objective Objective Clinical Data: Vital Signs Temperature 97.7 F 11/21/19 10:45 Pulse 86 11/21/19 10:45 Pulse Rhythm Regular 11/21/19 10:45 Respiratory Rate 16 11/21/19 10:45 Respiratory Depth Normal 11/21/19 10:45 Blood Pressure 131/86 11/21/19 10:45 Pulse Oximetry 94 L 11/21/19 10:45 Oxygen Delivery Method Room Air 11/21/19 10:45 Oxygen Flow Rate 0 11/21/19 10:45 Pain Level 4 11/23/19 05:40 Laboratory Results WBC 12.36 k/cumm (4.4-10.8) H 11/22/19 07:00 RBC 3.45 m/cumm (4.00-5.20) L 11/22/19 07:00 Hgb 9.4 g/dL (12.0-15.5) L 11/22/19 07:00 Hct 29.3 % (36.0-46.0) L 11/22/19 07:00 MCV 84.9 fL (80-95) 11/22/19 07:00 MCH 27.2 pg (27.0-33.0) 11/22/19 07:00 MCHC 32.1 g/dL (32.0-36.0) 11/22/19 07:00 RDW 16.1 % (11.7-14.6) H 11/22/19 07:00 Plt Count 212 x1000/uL (130-400) 11/22/19 07:00 MPV 9.6 fL (8.0-11.0) 11/22/19 07:00
[2019-11-23] MEDS: Docusate Sodium 100 MG CAP PO ×2 (09:00→22:55)
[2019-11-23] MEDS: Ibuprofen 600 MG TAB PO ×2 (09:00→22:55)
[2019-11-24] MEDS: oxyCODONE 5 mg/Acetaminophen 325 mg TAB PO ×3 (03:06→12:31)
[2019-11-24] MEDS: Ibuprofen 600 MG TAB PO (06:44)
--- NOTE | 2019-11-24 08:38 | W.PM.PROGNOT ---
Date of Service Date of service: 11/24/19 Time of Service: 08:38 Assessment and Plan Assessment and plan (1) S/P section: Status: Acute Assessment and plan: Doing well. Has met all postoperative milestones. Plan for discharge home today. Subjective Subjective Interval history since last seen: Doing well today. Pain remains well controlled with percocet and motrin Ambulatory Tolerating regular diet. No nausea or vomiting Objective Objective Clinical Data: Vital Signs Temperature 97.7 F 11/21/19 10:45 Pulse 86 11/21/19 10:45 Pulse Rhythm Regular 11/21/19 10:45 Respiratory Rate 16 11/21/19 10:45 Respiratory Depth Normal 11/21/19 10:45 Blood Pressure 131/86 11/21/19 10:45 Pulse Oximetry 94 L 11/21/19 10:45 Oxygen Delivery Method Room Air 11/21/19 10:45 Oxygen Flow Rate 0 11/21/19 10:45 Pain Level 3 11/24/19 08:02 Laboratory Results WBC 12.36 k/cumm (4.4-10.8) H 11/22/19 07:00 RBC 3.45 m/cumm (4.00-5.20) L 11/22/19 07:00 Hgb 9.4 g/dL (12.0-15.5) L 11/22/19 07:00 Hct 29.3 % (36.0-46.0) L 11/22/19 07:00 MCV 84.9 fL (80-95) 11/22/19 07:00 MCH 27.2 pg (27.0-33.0) 11/22/19 07:00 MCHC 32.1 g/dL (32.0-36.0) 11/22/19 07:00 RDW 16.1 % (11.7-14.6) H 11/22/19 07:00 Plt Count 212 x1000/uL (130-400) 11/22/19 07:00 MPV 9.6 fL (8.0-11.0) 11/22/19 07:00
== END 2019-11-24 13:45 | disposition home or self-care (01) | DRG 788 ==
LOC: PDS 13:29 → OBS 13:33
PROVIDERS: Admitting Provider Obstetrics & Gynecology; PCP Nurse Practitioner Family; Visit Provider Obstetrics & Gynecology
PROC: 10D00Z1 Extraction of Products of Conception, Low, Open Approach (ICD-10-PCS; CPT 59514; principal; 2019-11-21 12:00)
DX: O32.1XX0 Maternal care for breech presentation, not applicable or unspecified (principal); Z37.0 Single live birth; Z3A.38 38 weeks gestation of pregnancy; O99.344 Other mental disorders complicating childbirth; F41.9 Anxiety disorder, unspecified
CPT/HCPCS: 59514; 36415; 85027; 99232; 99233; J1580; J1885; J2370; J2405; J2765; J3010

== ENCOUNTER 2020-05-28 15:32 | Outpatient (REF) | payer OTHER, SELFPAY | END 2020-05-28 15:52 | LOC: LBN 15:32 | PROVIDERS: PCP Nurse Practitioner Family; Visit Provider Obstetrics & Gynecology | DX: N89.8 Other specified noninflammatory disorders of vagina (principal) | CPT/HCPCS: 87480; 87510; 87660 ==

== ENCOUNTER 2020-08-16 19:06 | Outpatient (REF) | payer OTHER, SELFPAY ==
[2020-08-18 13:31] LABS: COVID-19 RT-PCR UVMMC Result Positive (Negative)
== END 2020-08-16 19:07 | disposition home or self-care (01) ==
LOC: LBN 19:06
PROVIDERS: PCP Nurse Practitioner Family; Visit Provider Family Medicine
DX: Z20.822 Contact with and (suspected) exposure to COVID-19 (principal); R05 Cough
CPT/HCPCS: U0003

== ENCOUNTER 2020-11-18 03:30 | Outpatient (CLI) | payer OTHER, SELFPAY ==
[2020-11-18 09:35] LABS: HCT 40.7 % (36.0-46.0); MCHC 31.9 % (32.0-36.0); MCV 84.4 fL (80-95); MPV 9.2 fL (8.0-11.0); Platelet Count 313 10^3/uL (130-400); RBC 4.82 10^6/uL (3.93-5.22); RDW 13.4 % (11.7-14.6); RDW-SD 41.5 fL; WBC 7.68 10^3/uL (4.4-10.8)
[2020-11-18 09:48] LABS: Prothrombin Time 9.9 sec (9.3-11.0)
[2020-11-18 10:48] LABS: ALT 26 U/L (14-59); AST 15 U/L (15-37); Albumin 3.9 g/dL (3.4-5.0); Alkaline Phosphatase 108 U/L (46-116); Anion Gap 8.1 mmol/L (3-11); BUN 9 mg/dL (7-18); Bilirubin, Total 0.8 mg/dL (0.2-1.0); CO2 27.9 mmol/L (21.0-32.0); CREATININE 0.9 mg/dL (0.55-1.02); Calcium 8.6 mg/dL (8.5-10.1); Chloride 107 mmol/L (98-107); Glucose 87 mg/dL (74-106); Potassium 4.1 mmol/L (3.5-5.1); Sodium 143 mmol/L (136-145); Total Protein 6.9 g/dL (6.4-8.2)
== END 2020-11-18 03:31 | disposition home or self-care (01) ==
LOC: LBO 03:30
PROVIDERS: PCP Nurse Practitioner Family; Visit Provider Nurse Practitioner Family
DX: R23.3 Spontaneous ecchymoses (principal); L85.3 Xerosis cutis
CPT/HCPCS: 36415; 80053; 85027; 84443; 85610

== ENCOUNTER 2021-04-19 11:45 | Outpatient (CLI) | payer OTHER, SELFPAY ==
--- NOTE | 2021-04-19 10:30 | DI.RAD_ITS ---
Exam(s) XR LUMBAR SPINE COMPLETE EXAM: XR LUMBAR SPINE COMPLETE CLINICAL HISTORY: vertebral alignment M54.50 LOW BACK PAIN. TECHNIQUE: 2D digital imaging was performed of the lumbar spine. Five images were obtained. AP, la teral, right oblique, left oblique and L5-S1 spot views were obtained. COMPARISON: No exams were available for comparison FINDINGS: BONES: No fracture or destructive lesion. Vertebral bodies are unremarkable. No facet hypertrophy byron ntified. DISKS: There is mild disc space narrowing at L5-S1. Small osteophytes are seen at the endplates at L4 -5. ALIGNMENT: Lumbar spinal alignment is within normal limits. No spondylolysis or spondylolisthesis. SOFT TISSUE: Normal. IMPRESSION: Mild degenerative changes in the lumbar spine. DATA REPOSITORY: RADIATION DOSE DELIVERED:
== END 2021-04-19 12:05 ==
PROVIDERS: PCP Nurse Practitioner Family; Visit Provider Nurse Practitioner Family
DX: M54.59 Other low back pain (principal); M51.37 Other intervertebral disc degeneration, lumbosacral region
CPT/HCPCS: 72110

== ENCOUNTER 2021-07-04 04:47 | Outpatient (CLI) | payer OTHER, SELFPAY ==
--- NOTE | 2021-07-04 13:00 | NS.NUTBLAN_ITS ---
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 She continues to have no taste and experiences bad odors and flavors on daily basis. She has lost 50 lbs in last year. 5'3 150 lbs BMI 27.5. Has maintained current weight for > 30 days and is happy with current weight. Appears well nourished. Estimated Needs: [id number] kcal, 70-75 g protein, 45-60 g fat Supplements: 50 mg zinc, vitamin, Calcium with D, Acidophilus, super greens, Vitamin C, zoloft, susan Diet Recall: Breakfast: yogurt with berries Lunch: brown rice with cranberries, cheese in tortilla Dinner: WW pasta with mozzarella and carrot sticks other: gingerale, chocolate, cheese stick Estimated Macronutrients: 1740 kca, 50 g protein, 40 g fat Current diet intake meeting 100% of calorie needs, 70% protein needs and 90% fat needs. With vitamin supplementation, is meeting micronutrient needs, however, needs to increase protein intake to meet 100% of macro needs. Session today focused on ways to increase protein with current foods she can tolerate. Recommended using an wilner called [employer] in order to track macro nutrient intake during day. May consider taking a protein shake to supplement. Reviewed natural remedies to enhance appetite /flavor by using lemon juice, anderson and /or vinegar to flavor foods. to d/c zinc as should not be taken > 14 days and should be cycled q 3 months. May benefit from seeing a Cargo Vessel Stewardess for additional treatments to aid in hunger/flavor/appetite. No follow up planned at this time.
== END 2021-07-04 04:48 | disposition home or self-care (01) ==
PROVIDERS: PCP Nurse Practitioner Family; Visit Provider Dietitian, Registered
DX: R43.1 Parosmia (principal); Z86.16 Personal history of COVID-19; Z71.3 Dietary counseling and surveillance
CPT/HCPCS: 97802

== ENCOUNTER 2021-12-19 15:55 | Outpatient (REF) | payer OTHER, SELFPAY | END 2021-12-19 15:56 | disposition home or self-care (01) | LOC: LBN 15:55 | PROVIDERS: PCP Nurse Practitioner Family; Visit Provider Advanced Practice Midwife | DX: R30.0 Dysuria (principal); R10.2 Pelvic and perineal pain | CPT/HCPCS: 87086; 87480; 87510; 87660 ==

== ENCOUNTER 2022-06-16 00:47 | Outpatient (CLI) | payer OTHER, SELFPAY ==
--- NOTE | 2022-06-16 07:15 | DI.RAD_ITS ---
Exam(s) XR LUMBAR SPINE COMPLETE EXAM: XR LUMBAR SPINE COMPLETE CLINICAL HISTORY: Increase in left hip pain, radiates TO BACK,M54.50. TECHNIQUE: 2D digital imaging was performed. Five views. COMPARISON: CR XR LUMBAR SPINE COMPLETE from 04/19/2021 FINDINGS: BONES: No fracture or destructive lesion. Vertebral body heights are maintained. No facet hypertroph y identified. DISKS: There has been further narrowing of the L5-S1 disc space, now moderate to severe. There are s mall endplate osteophytes. The remaining intervertebral disc spaces are maintained. ALIGNMENT: Lumbar spinal alignment is within normal limits. SOFT TISSUE: Normal. IMPRESSION: Worsening degenerative disc changes at L5-S1. DATA REPOSITORY: RADIATION DOSE DELIVERED:
== END 2022-06-16 01:07 ==
LOC: DI 00:48
PROVIDERS: PCP Nurse Practitioner Family; Visit Provider Nurse Practitioner Family
DX: M47.817 Spondylosis without myelopathy or radiculopathy, lumbosacral region (principal)
CPT/HCPCS: 72110

== ENCOUNTER 2022-07-17 11:46 | Outpatient (REF) | payer OTHER, SELFPAY ==
--- NOTE | 2022-07-17 11:00 | PAPFT_PTH ---
PATIENT: Mita Santiago LOC: [facility]IA #:[id number] AGE/SX: 36/F ROOM: RE07/17/[address]: Juli Stone : 1985 BED: DIS: 07/17/2022 SPEC #: [id number] RECD: 07/17/22 13:05 STATUS: ELIZABET REAdama #: [id number] DENISE: 07/17/22 11:[address]: Juli Stone DEPT: [facility] Cytology RECD BY: Yesenia Rossi ENTERED: 07/17/22 13:05 SP TYPE: PAPFT OTHR DR: Anastasia Langford, WINDOW SHADE CUTTER Tissues: 1 - CX/ENDOCX FOR PAP SMEARS Procedures: PAP THIN PREP/[facility] Screening HPV DNA PROBE Comments: [id number]
== END 2022-07-17 11:47 | disposition home or self-care (01) ==
LOC: LBN 11:46
PROVIDERS: PCP Nurse Practitioner Family; Visit Provider Obstetrics & Gynecology Gynecology
DX: Z12.4 Encounter for screening for malignant neoplasm of cervix (principal); Z11.51 Encounter for screening for human papillomavirus (HPV)
CPT/HCPCS: 88142; 87624

== ENCOUNTER 2022-11-07 16:09 | Outpatient (REF) | payer OTHER, SELFPAY | END 2022-11-07 16:10 | disposition home or self-care (01) | LOC: LBN 16:09 | PROVIDERS: PCP Nurse Practitioner Family; Visit Provider Obstetrics & Gynecology | DX: N94.89 Other specified conditions associated with female genital organs and menstrual cycle (principal); N76.0 Acute vaginitis | CPT/HCPCS: 87480; 87510; 87660 ==

== ENCOUNTER 2022-11-27 14:40 | Emergency (ER) | payer OTHER, SELFPAY ==
[2022-11-27 14:48] VITALS: BP 118/67; PULSE 73; RESP 16; TEMP 36.9; O2SAT 100
--- NOTE | 2022-11-27 16:17 | ED.GENADUL_ITS ---
Discharge Plan Disposition Patient Disposition: Home Discharge Details Clinical Impression: Urinary incontinence Primary Care Provider: Anastasia Langford ED Provider: Francisco Garza Home Meds and New Rx's Prescriptions: Continued Adult Probiotic 3 billion cell capsule 3,000 mmu cells PO DAILY ascorbic acid (vitamin C) 500 mg capsule 1,000 mg PO DAILY multivitamin Tablet 1 tab PO DAILY calcium citrate-vitamin D3 1,000 mg-10 mcg /30 mL liquid 30 ml PO DAILY sertraline 25 mg tablet 25 mg PO DAILY Qty: 90 3RF Rx Instructions: Take 1 tab daily Discontinued fluconazole [Diflucan] 150 mg tablet 150 mg PO ONCE Qty: 3 2RF Patient Comments: pt reports not taking 11/27/22 Rx Instructions: Repeat every 72hrs x3 doses. Discharge Instructions Instructions: Urinary Incontinence (ED) Additional Instructions: At this time I feel there is low concern for need of emergent MRI. As discussed if you have any new or significant worsening of symptoms please return immediately to the emergency department for reassessment and reconsideration of emergent imaging. Please continue to monitor your symptoms and follow-up with your primary care provider to further discuss your urinary incontinence. Referrals: Anastasia Langford, FINISH CLEANER [Primary Care Provider] - 1 week (As needed for reassessment) Discharge Data Discharge Date/Time-TO BE ENTERED AT DEPARTURE: 11/27/22 17:31 Medical Decision Making Patient presenting to the emergency department for chief complaint of urinary incontinence. Patient reports on Sunday after walking a decent amount she had episode of incontinence. She states that due to having children she has incontinence issues but usually with stress such as coughing, laughing, jumping or lifting. She reports that she was not doing any of these when it occurred. She also states that approximately 2 weeks ago she had episode of stool incontinence but states that she has IBS and does have these episodes where she emergently needs to use the restroom but unfortunately this time she did not make it to the restroom. Patient has history of chronic back pain with MRI performed in July which showed bulging disc which she believes was L5-S1. She is pending a pain clinic appointment for back injection. Patient denies any recent injury or trauma, fever chills, and states she just finished her period last week. Physical exam shows lower lumbar tenderness to palpation, normal DTRs, normal sensation, normal gait, no weakness to extremities, no saddle anesthesia and patient reporting normal bowel and bladder function since Sunday. Patient was seen by primary care provider who did have slight concern for cauda equina. I have low suspicion of this given how comfortable patient appears, that she has had resumption and normal bowel and bladder movements since the episode on Sunday, states chronic back pain with slow slight worsening but reports that she has not been doing her appropriate PT exercises to help with her back pain. Unfortunately MRI services are not available at time patient is presenting to the emergency department. Due to this we will check a postvoid residual and further discuss options with patient. Patient is not , urinalysis is nondiagnostic with no signs of infection, and postvoid residual with 3 repeat scans was 0. Discussed with patient low likelihood of this being cauda equina but that I could not fully rule this out due to inability to perform MRI. Patient also has severe claustrophobia and we do not have open MRI. After full discussion and shared decision-making was utilized patient will continue to monitor symptoms, given that she has had no other major events of urinary incontinence or bowel incontinence she will follow-up with primary care provider or return for new or worsening symptoms. Patient did state clear understanding that we were unable to fully rule out emergent diagnosis but at the same time there is low suspicion for this given physical exam and mostly resolution of symptoms. After discussion of diagnosis and plan of care patient has no further needs, questions, or concerns and states clear understanding to return to the emergency department for any worsening symptoms. This documentation was generated using Agile[employer] dictation system, please disregard any oddities of phrase or misspellings. HPI General Mode of arrival: ambulatory . Date/Time Provider Initiated Documentation: 11/27/22 14:50 . Limitations to Documentation: no limitations . Information obtained by: patient and RN notes reviewed . History of Present Illness 37 year old F presents to the emergency department with the chief complaint of Urinary incontinence, described as moderate, Patient started experiencing this day(s) (3) and it has been now resolved. No relieving factors improve symptom(s), No exacerbating factors reported . Patient did receive the following treatments prior to arrival, none Related Data Home Medications Medication Instructions Recorded Confirmed lactobacillus combination no.8 3 3,000 mmu cells PO DAILY 11/29/18 11/27/22 billion cell capsule (Adult Probiotic) ascorbic acid (vitamin C) 500 mg 1,000 mg PO DAILY 03/31/21 11/27/22 capsule multivitamin 1 tab PO DAILY 12/19/21 11/27/22 calcium cit 1,000 mg calcium-vit 30 ml PO DAILY 07/17/22 11/27/22 D3 10 mcg(400 unit)/30 mL oral liquid sertraline 25 mg tablet 25 mg PO DAILY #90 tabs 10/02/22 11/27/22 Previous Rx's Medication Instructions Recorded sertraline 25 mg tablet 25 mg PO DAILY #90 tabs 10/02/22 Allergies Allergy/AdvReac Type Severity Reaction Status Date / Time amoxicillin [From Augmentin] Allergy Intermediate Oral Verified 11/27/22 14:54 mucosal pain and redness clavulanic acid Allergy Intermediate Oral Verified 11/27/22 14:54 [From Augmentin] mucosal pain and redness Penicillins Allergy Intermediate Verified 11/27/22 14:54 Cephalosporins Allergy Unknown Verified 11/27/22 14:54 dust mites Allergy Uncoded 11/27/22 14:54 General Stated Complaint: GenMedical MARGO: 3 Review of Systems Constitutional Constitutional: Denies chills, Denies fever(s) and Denies weakness ENT Ears, Nose, Mouth, and Throat: Denies disequilibrium Cardiovascular Cardiovascular: Denies chest pain and Denies dyspnea on exertion Respiratory Respiratory: Denies cough and Denies dyspnea on exertion Gastrointestinal Gastrointestinal: Denies abdominal pain, Denies change in bowel habits, Denies diarrhea, Denies nausea and Denies vomiting Genitourinary Genitourinary: Reports as per HPI, Reports hematuria, Denies pelvic pain, Reports urinary incontinence, Denies urinary hesitancy and Denies urinary urgency Musculoskeletal Musculoskeletal: Reports back pain, Denies muscle weakness, Denies numbness and Denies tingling Neurologic Neurologic: Denies numbness, Denies sensory deficit, Denies tingling, Denies disequilibrium and Denies weakness PFSH All Active Problems (Updated 11/27/22 @ 17:18 by Francisco Garza NP) Left carpal tunnel syndrome (Chronic) Irritable bowel syndrome with constipation and diarrhea (Chronic) Hyperlipidemia (Chronic) Generalized anxiety disorder (Chronic) Internal hemorrhoids (Chronic) Parosmia (Chronic) Long COVID (Chronic) Lumbar back pain with radiculopathy affecting lower extremity (Chronic) Degenerative joint disease (DJD) of lumbar spine (Chronic) MRI 07/2022 Urinary incontinence (Acute) Medical History COVID-19 virus infection Positive PCR 08/16/20 Surgical History History of repair of anterior cruciate ligament of right knee (03/09/04) S/P section (11/21/19) LTCS. Breech. [id number]. Malorie. S/P colonoscopy (06/25/18) Family History Mother Hyperlipidemia Hypothyroidism Asthma Type 2 diabetes mellitus Hypertension Father Hyperlipidemia Type 2 diabetes mellitus Sister Hyperlipidemia Depression Palindromic rheumatism Suspected Pericarditis Son No problems noted. Daughter No problems noted. Paternal Grandfather , in his 60s Myocardial infarction Heart disease Lung cancer Hyperlipidemia Alcohol abuse Paternal Grandmother , at 81 Lung cancer Type 2 diabetes mellitus Maternal Grandfather Alcohol abuse COPD (chronic obstructive pulmonary disease) Depression Heart disease Hyperlipidemia Hypertension Hypothyroidism Maternal Grandmother Colon cancer Social History Smoking/Tobacco Use Status: Never Second Hand Exposure: Yes Smoking risk assessment performed?: Yes Alcohol Intake: former Drug use: Never Substance use type: does not use Caregiver/Support person: No Household members: spouse and children Housing: house Number of Children: 2 Communication Needs: None Education Level: college Details: 4yrs Do you need help understanding health information?: Rarely current occupation: [employer]. [employer]. Pets and animals: Yes Pets and animals: cat(s) Sexually active: Yes Do you think of yourself as: straight/heterosexual Current gender identity: female What is your relationship status?: How often do you talk on the phone with friends or family?: twice per week How often do you get together with friends or relatives?: three or more times per week How often do you attend cheondoism or gnosticism services?: decline to answer Do you belong to any clubs or organized social groups?: yes Panel score (0-1 are the most socially isolated patients): 3 What type of physical activity do you participate in: aerobic, regular exercise, other Details: [place] class, [employer] and yoga Duration: 60-90 minutes/day Frequency: 1-2 times per week Kylee/Christian: None Special kylee needs: No Seatbelt use: always Helmet use: Yes Helmet use: always Drive intox or ride w/intox catering driver: No Do you feel safe at home: Yes Do you feel safe in your relationship?: Yes Additional Social history: husnand in room Female Reproductive History Menstrual control method: none History History 3 Para 2 Hx # Term Pregnancies 2 Multiple births 0 Hx # Pregnancies 0 Ectopic pregnancies 0 AB induced 0 Hx Number of Living Children 1 AB spontaneous 1 Past Pregnancies Del. 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 Unsuccessful ECV. Malorie. Exam Const General: cooperative and no acute distress Orientation: alert, awake and oriented x3 Neck Neck: normal visual inspection, full ROM and no meningeal signs Resp Effort & Inspection: normal respiratory effort Auscultation: clear to auscultation bilaterally Cardio Rate: regular rate Rhythm: regular rhythm Heart Sounds: S1 normal and S2 normal GI Palpation: no hepatosplenomegaly, no aortic enlargement, no masses and no pulsatile masses Back/Spine/Pelvis Thoracic/Lumbar Spine: pain with thoraco-lumbar ROM, No paraspinal tenderness, No thoracic spinal tenderness and lumbar spinal tenderness (L4) Pelvis: sciatic notch tenderness on the right and on the left Neuro General: patient alert, patient awake and patient oriented x3 DTR's: Rt Patellar: 2+, Lt Patellar: 2+, Rt Ankle: 2+ and Lt Ankle: 2+ Course Vital Signs Vital signs: Vital Signs Temperature 36.9 C 11/27/22 14:48 Pulse 73 11/27/22 14:48 Respiratory Rate 16 11/27/22 14:48 Blood Pressure 118/67 11/27/22 14:48 Pulse Oximetry 100 11/27/22 14:48 Temperature 36.9 C 11/27/22 14:48 Temperature Source Skin 11/27/22 14:48 Pulse 73 11/27/22 14:48 Respiratory Rate 16 11/27/22 14:48 Blood Pressure 118/67 11/27/22 14:48 Blood Pressure Position Sitting 11/27/22 14:48 Pulse Oximetry 100 11/27/22 14:48 Oxygen Delivery Method Room Air 11/27/22 14:48 Oxygen Flow Rate 0 11/27/22 14:48 Pain Level 7 11/27/22 14:48
[2022-11-27 16:42] LABS: Bilirubin Negative (Negative); Blood Trace-intact (Negative); Clarity Clear (Clear); Glucose Negative (Negative); Ketones Negative (Negative); Leukocyte Esterase Negative (Negative); Nitrite Negative (Negative); pH 6.5 (5-8)
[2022-11-27 16:50] LABS: Bacteria Negative HPF (Negative); C & S Indicated? No; Casts Negative LPF (Negative); Crystals Negative HPF (Negative); Epithelial Cells Few HPF (Negative); Mucus Negative (Negative); RBC 0-2 HPF (0-2); WBC 0-2 HPF (0-5)
[2022-11-27 17:30] VITALS: BP 120/70
== END 2022-11-27 17:31 | disposition home or self-care (01) ==
PROVIDERS: Emergency Provider Nurse Practitioner Family; PCP Nurse Practitioner Family
DX: R32 Unspecified urinary incontinence (principal)
CPT/HCPCS: 81003; 81015

== ENCOUNTER 2023-01-03 04:04 | Outpatient (CLI) | payer OTHER, SELFPAY ==
[2023-01-03 09:08] LABS: Anion Gap 8.6 mmol/L (3-11); BUN 12 mg/dL (7-18); CO2 25.4 mmol/L (21.0-32.0); CREATININE 0.8 mg/dL (0.55-1.02); Calcium 8.9 mg/dL (8.5-10.1); Calculated LDL 189 mg/dL (<100); Chloride 103 mmol/L (98-107); Cholesterol 281 mg/dL (<200); Estimated GFR 97.87 (mL/min/1.73m2); Glucose 95 mg/dL (74-106); HDL Cholesterol 76 mg/dL (40-60); Potassium 4.1 mmol/L (3.5-5.1); Sodium 137 mmol/L (136-145); TSH (W/Ref FT4) 2.58 uIU/mL (0.36-3.74); Triglyceride 81 mg/dL (<150)
== END 2023-01-03 04:05 | disposition home or self-care (01) ==
LOC: LBO 04:04
PROVIDERS: PCP Nurse Practitioner Family; Visit Provider Nurse Practitioner Family
DX: E78.5 Hyperlipidemia, unspecified (principal)
CPT/HCPCS: 36415; 80048; 80061; 84443

== ENCOUNTER 2023-01-18 08:20 | Outpatient (CLI) | payer OTHER, SELFPAY ==
--- NOTE | 2023-01-18 06:00 | DI.RAD_ITS ---
Exam(s) XR PAIN CLINIC SACRIOILIAC 2V EXAM: XR PAIN CLINIC SACRIOILIAC 2V CLINICAL HISTORY: DX: Sacroiliac Joint Dysfunction TECHNIQUE: 2D and realtime digital imaging was performed. CONTRAST MATERIAL: Refer to procedure report. COMPARISON: No exams were available for comparison FINDINGS: Fluoroscopy was provided for Dr. Pinto during the performance of a left sacroiliac joint injection. Please refer to the procedure report for complete details. Ka,r=12 mGy IMPRESSION:
[2023-01-18 08:34] VITALS: BP 123/64; PULSE 77; RESP 20; O2SAT 98
[2023-01-18 10:09] VITALS: BP 120/72; PULSE 79; RESP 14; O2SAT 100
[2023-01-18] MEDS: methylPREDNISolone ACETATE 80 MG/ML VIAL IJ (10:21)
[2023-01-18] MEDS: Omnipaque 240 MG/ML 50 ML BTL IJ (10:21)
--- NOTE | 2023-01-18 10:24 | PDOC.PAIN_ITS ---
Date of service: 01/18/23 Time of Service: 10:24 Pain Managment Procedure Note Procedure Note Procedure Note: PROCEDURE NOTE BILATERAL INTRA-ARTICULAR SACROILIAC JOINT INJECTION Date of Service: January 18, 2023 Patient: Mita Santiago Provider: Dada Pinto DO, MPH COMMENTS: I previously evaluated the patient in the office and their symptoms in relation to the sacroiliac joint pain have remained the same. She took 1 mg of Ativan from her prescription after I consented her 1 hour prior to this procedure. Secondary to her anxiety, her was present for this procedure. He did wear a lead vest. Pre-operative diagnosis: Sacroiliac joint dysfunction Post-operative diagnosis: Same Pre-procedure pain: VAS= 6/10 Mita Santiago has been referred to our [facility] for a Bilateral intra-articular Sacroiliac joint injection. Mita was interviewed and the medical record reviewed. There were no medical, pharmacologic, radiographic or other structural contraindications to attempting a fluoroscopically-guided, contrast-enhanced, intra-articular Sacroiliac joint injection. The risks, benefits, and potential side effects of this procedure were reviewed with the patient. Questions and concerns were addressed. After it was clear that Mita was fully informed about the procedure, the printed consent form was signed by the patient and myself. Mita was placed in the prone position on the fluoroscopy table and an automated blood pressure cuff, 3 lead EKG, and pulse oximeter were applied. The skin entry point for approaching the Right sacroiliac joint was identified under the most advantageous fluoroscopic view and marked. Following thorough Chlorhexadine preparation of the skin and draping with sterile surgical drapes, 2 mls of 1% lidocaine was infiltrated into the skin at the entry point and the surrounding subcutaneous tissues. Next, a 3.5 22G spinal needle was placed under fluoroscopic guidance into the Right sacroiliac joint. Intra-articular placement was confirmed by a clear arthrogram resulting from the injection of 0.25ml of Omnipaque-240. Next, 1 ml of Depo- Medrol 40 mg/ml was injected intra-articularly with an initial reproduction of a significant component of the usual pain. This was followed with 1 ml of 1% Lidocaine. The needle was then removed without difficulty. (49 ml of Omnipaque-240 was wasted). The exact procedure was completed on the opposite sacroiliac joint. Mita's vital signs were stable throughout the procedure and were as recorded in nursing records. Follow up plans and appointments were discussed with Mita. Post procedure instructions were given as documented in nursing records. Having met discharge criteria, Mita was discharged from the [facility]. COMMENTS: Post-procedure pain: VAS= 0/10. If the patient receives at least 50% improvement in pain and/or function for at least 3 months, this procedure can be repeated if needed. She will start her home exercise program back up in 2 days. I personally performed this entire procedure. DADA PINTO DO, MPH ABPMR-subspecialty board certification in Pain Medicine [facility]
== END 2023-01-18 08:21 | disposition home or self-care (01) ==
LOC: PC 08:20
PROVIDERS: PCP Nurse Practitioner Family; Visit Provider Preventive Medicine Occupational Medicine
DX: M46.1 Sacroiliitis, not elsewhere classified (principal)
CPT/HCPCS: 27096; 72200; J1040; Q9967

== ENCOUNTER 2023-03-01 23:00 | Emergency (ER) | payer OTHER, SELFPAY ==
[2023-03-01 23:03] VITALS: BP 159/77; PULSE 92; RESP 14; TEMP 37; O2SAT 100
--- NOTE | 2023-03-01 23:21 | W.ED.GENAD ---
Discharge Plan Disposition Patient Disposition: Home Condition: Improving Discharge Details Chief Complaint: Laceration Clinical Impression: Laceration of face Primary Care Provider: Anastasia Langford ED Provider: Jameson Tirado Home Meds and New Rx's Prescriptions: No Action Adult Probiotic 3 billion cell capsule 3,000 mmu cells PO DAILY multivitamin Tablet 1 tab PO DAILY sertraline 25 mg tablet 25 mg PO DAILY Qty: 90 3RF Rx Instructions: Take 1 tab daily lorazepam 1 mg tablet 1 mg PO ONCE Qty: 3 0RF Rx Instructions: Take 15-30min before procedure Discharge Instructions Instructions: Facial Laceration (ED) Additional Instructions: Please keep wound clean and dry, use ibuprofen and/or acetaminophen as needed for pain and swelling. Please return to the emergency department for any worsening symptoms Medical Decision Making 37-year-old female presents after sustaining 2 cm lunate superficial laceration to left maxillary soft tissue, nongaping, no foreign body, hemostatic, extraocular motion intact no proptosis no ocular injury, normal bite strength no malocclusion; neurologically intact hemodynamically stable. We will clean wound, given nongaping superficial nature will closed with Steri-Strips, home care instructions and return precautions given. HPI General Date/Time Provider Initiated Documentation: 03/01/23 23:20. HPI Narrative: 37-year-old female presents after accidentally running into the door of her car, sustaining superficial laceration to her left cheek, up-to-date on tetanus, no loss of conscious Related Data Home Medications Medication Instructions Recorded Confirmed lactobacillus combination no.8 3 3,000 mmu cells PO DAILY 11/29/18 02/14/23 billion cell capsule (Adult Probiotic) multivitamin 1 tab PO DAILY 12/19/21 02/14/23 sertraline 25 mg tablet 25 mg PO DAILY #90 tabs 10/02/22 02/14/23 lorazepam 1 mg tablet 1 mg PO ONCE #3 tabs 01/17/23 02/14/23 Previous Rx's Medication Instructions Recorded sertraline 25 mg tablet 25 mg PO DAILY #90 tabs 10/02/22 lorazepam 1 mg tablet 1 mg PO ONCE #3 tabs 01/17/23 Allergies Allergy/AdvReac Type Severity Reaction Status Date / Time amoxicillin [From Augmentin] Allergy Intermediate Oral Verified 02/14/23 07:52 mucosal pain and redness clavulanic acid Allergy Intermediate Oral Verified 02/14/23 07:52 [From Augmentin] mucosal pain and redness Penicillins Allergy Intermediate Verified 02/14/23 07:52 Cephalosporins Allergy Unknown Verified 02/14/23 07:52 dust mites Allergy Uncoded 02/14/23 07:52 General Stated Complaint: Laceration MARGO: 4 Review of Systems Narrative: Review of Systems Constitutional: negative Eyes: negative ENT: negative Cardiovascular: negative Respiratory: negative Gastrointestinal: negative : negative Musculoskeletal: negative Skin: Facial laceration Neurologic: negative Psych: negative PFSH All Active Problems (Updated 03/01/23 @ 23:48 by Jameson Tirado MD) Laceration of face (Acute) Sacroiliac joint dysfunction of both sides (Acute) Degenerative joint disease (DJD) of lumbar spine (Chronic) MRI 07/2022 Lumbar back pain with radiculopathy affecting lower extremity (Chronic) Long COVID (Chronic) Parosmia (Chronic) Internal hemorrhoids (Chronic) Generalized anxiety disorder (Chronic) Hyperlipidemia (Chronic) Irritable bowel syndrome with constipation and diarrhea (Chronic) Left carpal tunnel syndrome (Chronic) Medical History COVID-19 virus infection Positive PCR 08/16/20 Surgical History [place] teeth removed S/P section (11/21/19) LTCS. Breech. [id number]. Malorie. History of repair of anterior cruciate ligament of right knee (03/09/04) S/P colonoscopy (06/25/18) Family History Mother Hyperlipidemia Hypothyroidism Asthma Type 2 diabetes mellitus Hypertension Father Hyperlipidemia Type 2 diabetes mellitus Sister Hyperlipidemia Depression Palindromic rheumatism Suspected Pericarditis Son No problems noted. Daughter No problems noted. Paternal Grandfather , in his 60s Myocardial infarction Heart disease Lung cancer Hyperlipidemia Alcohol abuse Paternal Grandmother , at 81 Lung cancer Type 2 diabetes mellitus Maternal Grandfather Alcohol abuse COPD (chronic obstructive pulmonary disease) Depression Heart disease Hyperlipidemia Hypertension Hypothyroidism Maternal Grandmother Colon cancer Social History Smoking/Tobacco Use Status: Never Second Hand Exposure: Yes Smoking risk assessment performed?: Yes Alcohol Intake: former Drug use: Never Substance use type: does not use Caregiver/Support person: No Household members: spouse and children Housing: house Number of Children: 2 Communication Needs: None Education Level: college Details: 4yrs Do you need help understanding health information?: Rarely 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. Pets and animals: Yes Pets and animals: cat(s) Sexually active: Yes Do you think of yourself as: straight/heterosexual Current gender identity: female What is your relationship status?: How often do you talk on the phone with friends or family?: twice per week How often do you get together with friends or relatives?: three or more times per week How often do you attend adventist or mosque services?: decline to answer Do you belong to any clubs or organized social groups?: yes Panel score (0-1 are the most socially isolated patients): 3 What type of physical activity do you participate in: aerobic, regular exercise, other Details: [place] class, [employer] and yoga Duration: 60-90 minutes/day Frequency: 1-2 times per week Kylee/Scientologist: None Special kylee needs: No Seatbelt use: always Helmet use: Yes Helmet use: always Drive intox or ride w/intox [employer] aut[employer] delivery driver: No Do you feel safe at home: Yes Do you feel safe in your relationship?: Yes Additional Social history: syednand in room Female Reproductive History Menstrual control method: none History History 3 Para 2 Hx # Term Pregnancies 2 Multiple births 0 Hx # Pregnancies 0 Ectopic pregnancies 0 AB induced 0 Hx Number of Living Children 1 AB spontaneous 1 Past Pregnancies Del. 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 Unsuccessful ECV. Malorie. Exam Narrative Exam Narrative: Physical Examination General: alert, awake, cooperative, resting comfortably, no acute distress HEENT: normocephalic, 2 cm lunate superficial laceration nongaping to left maxillary soft tissue; PERRL, EOM intact, conjunctiva normal; no nasal discharge; moist mucous membranes, oral and pharyngeal mucosa normal, tolerating secretions Neck: supple, trachea midline; full ROM Chest: normal to inspection Respiratory: normal respiratory effort, speaking in full sentences Skin: See HEENT Neuro: AAOx3, normal speech, moving all extremities Psych: Appropriate mood and affect Course Vital Signs Vital signs: Vital Signs Temperature 37 C 03/01/23 23:03 Pulse 92 H 03/01/23 23:03 Respiratory Rate 14 03/01/23 23:03 Blood Pressure 159/77 H 03/01/23 23:03 Pulse Oximetry 100 03/01/23 23:03 Temperature 37 C 03/01/23 23:03 Temperature Source Oral 03/01/23 23:03 Pulse 92 H 03/01/23 23:03 Respiratory Rate 14 03/01/23 23:03 Respiratory Effort Normal 03/01/23 23:06 Blood Pressure 159/77 H 03/01/23 23:03 Blood Pressure Position Sitting 03/01/23 23:03 Pulse Oximetry 100 03/01/23 23:03 Oxygen Delivery Method Room Air 03/01/23 23:03 Oxygen Flow Rate 0 03/01/23 23:03 Pain Level 6 03/01/23 23:06
[2023-03-01] MEDS: Ibuprofen 400 MG TAB PO (23:36)
[2023-03-01] MEDS: Acetaminophen 325 MG TAB 650 MG PO (23:37)
== END 2023-03-02 00:42 | disposition home or self-care (01) ==
PROVIDERS: Emergency Provider Emergency Medicine; PCP Nurse Practitioner Family
DX: S01.412A Laceration without foreign body of left cheek and temporomandibular area, initial encounter (principal); W22.8XXA Striking against or struck by other objects, initial encounter; Y93.01 Activity, walking, marching and hiking
CPT/HCPCS: 99282

== ENCOUNTER 2023-06-27 10:54 | Outpatient (CLI) | payer OTHER, SELFPAY ==
[2023-06-27 11:57] VITALS: BP 115/65; PULSE 88; RESP 18; TEMP 36.7; O2SAT 98
[2023-06-27 13:23] VITALS: BP 128/70; PULSE 72; RESP 18; O2SAT 97
--- NOTE | 2023-06-27 13:23 | PDOC.PAIN_ITS ---
Date of service: 06/27/23 Time of Service: 13:23 Pain Managment Procedure Note Procedure Note Procedure Note: PROCEDURE NOTE LUMBAR EPIDURAL STEROID INJECTION Date of Service: June 27, 2023 Patient:?Mita Santiago? Provider: Dada Pinto DO, MPH Mita Santiago has been referred to the [facility] for a lumbar epidural steroid injection. Pre-operative diagnosis: Lumbosacral Radiculopathy Post-operative diagnosis: Same Pre-Procedure Pain: VAS= 7 /10 Comments: She came in early so that she could be consented and then take her oral Ativan. Her was present with her. Mita was interviewed and the medical record was reviewed.? There were no medical, pharmacologic, radiographic or other structural contraindications to attempting fluoroscopically guided Lumbar epidural steroid injection.? Risks, potential side effects, indications, and potential benefits of the procedure were reviewed with Mita.? Questions and concerns were addressed.? After it was clear that Mita was fully informed about the procedure, the printed consent form was signed by the patient and myself.? Mita was placed in the prone position on the fluoroscopy table and automated blood pressure cuff and pulse oximeter applied. The skin entry point for enter ing/approaching the epidural space for the lumbar epidural steroid injection was marked. Following thorough chlorhexadine preparation of the skin and draping and 1% lidocaine infiltration of the skin entry point and subcutaneous tissues, an 18 gauge Touhy needle was placed and advanced under fluoroscopic guidance and with loss of resistance technique into the L5-S1 epidural space. Needle tip shoshana cement and depth were aided and confirmed by fluoroscopy. There was no paresthesia or return of blood or CSF through the needle. 1 mls of Omnipaque 240 was injected with clear epidural spread confirmed with fluoroscopy. 80 mg of Depo-Medrol was? injected. This was followed by 1 ml of preservative-free normal saline to flush the steroid out of the needle. There was no unusual discomfort expressed by Mita. The needle was withdrawn without difficulty. (49 mls of Omnipaque was wasted) Mita was observed and was without hemodynamic, neurologic, or allergic reactions.? Fluoroscopic images were digitally archived. Mita's vital signs were stable throughout the procedure and were as recorded in nursing records. Follow up plans and appointments were discussed with Mita. Post procedure instruction was given as documented in nursing records and having met discharge criteria Mita was discharged from the [facility]. COMMENTS: No apparent complications. Post-procedure pain: VAS= 0/10. Mita to contact [facility] as needed. If at least 50% improvement in pain and/or function for at least 3 months is achieved, this procedure can be repeated. I personally performed this entire procedure. DADA PINTO DO, MPH ABPMR-subspecialty board certification in Pain Medicine [facility]
[2023-06-27] MEDS: Omnipaque 240 MG/ML 50 ML BTL IJ (13:25)
[2023-06-27] MEDS: Epidural Tray 1 EACH MC (13:25)
[2023-06-27] MEDS: methylPREDNISolone ACETATE 80 MG/ML VIAL IJ (13:25)
--- NOTE | 2023-06-27 13:30 | DI.RAD_ITS ---
Exam(s) XR PAIN CLINIC LUMBAR SP 2V EXAM: XR PAIN CLINIC LUMBAR SP 2V CLINICAL HISTORY: Dx: Lumbar Radiculopathy. TECHNIQUE: Fluoroscopy was provided for the referring physician for guidance with performing pain cl inic injection procedure. COMPARISON: No exams were available for comparison FINDINGS: Please see procedure note for details. Fluoro time: 17.3 seconds RADIATION DOSE DELIVERED: Ka,r=7.99 mGy
== END 2023-06-27 10:55 | disposition home or self-care (01) ==
LOC: PC 10:55
PROVIDERS: PCP Nurse Practitioner Family; Visit Provider Preventive Medicine Occupational Medicine
DX: M54.17 Radiculopathy, lumbosacral region (principal)
CPT/HCPCS: 123; 62323; 72100; 00123; J1040; Q9967

== ENCOUNTER 2023-09-04 10:32 | Outpatient (REF) | payer OTHER, SELFPAY ==
[2023-09-04 12:19] LABS: Abs Immature Grans 0.03 10^3/uL (0.0-0.06); Absolute Basophil Count 0.01 10^3/uL (0.0-0.2); Absolute Eosinophil Count 0.21 10^3/uL (0.0-0.7); Absolute Lymphocyte Count 1.73 10^3/uL (1.2-3.4); Absolute Monocyte Count 0.31 10^3/uL (0.1-0.8); Absolute Neutrophil Count 3.32 10^3/uL (1.2-6.7); Basophils % 0.2 %; Eosinophils % 3.7 %; HCT 37.6 % (36.0-46.0); HGB 12.3 g/dL (11.2-15.7); Immature Grans % 0.5 %; Lymphocytes % 30.8 %; MCH 27.4 pg (27.0-33.0); MCHC 32.7 % (32.0-36.0); MCV 84 fL (80-95); MPV 9.9 fL (8.0-11.0); Monocytes % 5.5 %; Neutrophils % 59.3 %; Platelet Count 323 10^3/uL (130-400); RBC 4.49 10^6/uL (3.93-5.22); RDW 12.9 % (11.7-14.6); RDW-SD 39.3 fL; WBC 5.61 10^3/uL (4.4-10.8)
[2023-09-04 13:07] LABS: ALT 34 U/L (14-59); AST 30 U/L (15-37); Albumin 3.6 g/dL (3.4-5.0); Alkaline Phosphatase 87 U/L (46-116); BUN 8 mg/dL (7-18); Bilirubin, Total 0.8 mg/dL (0.2-1.0); CREATININE 0.7 mg/dL (0.55-1.02); Calcium 8.7 mg/dL (8.5-10.1); Chloride 106 mmol/L (98-107); Estimated GFR 114.88 (mL/min/1.73m2); Glucose 87 mg/dL (74-106); Potassium 3.8 mmol/L (3.5-5.1); Sodium 142 mmol/L (136-145); Total Protein 6.7 g/dL (6.4-8.2)
[2023-09-05 10:46] LABS: Hep A Total Ab w Rflx IgM Positive (Negative)
[2023-09-05 11:50] LABS: Hep A Antibody IgM Negative (Negative)
== END 2023-09-04 10:33 | disposition home or self-care (01) ==
LOC: LBN 10:32
PROVIDERS: PCP Nurse Practitioner Family; Visit Provider Nurse Practitioner Family
DX: R11.2 Nausea with vomiting, unspecified (principal)
CPT/HCPCS: 80053; 86709; 85025

== ENCOUNTER 2024-05-05 14:56 | Outpatient (REF) | payer OTHER, SELFPAY ==
--- NOTE | 2024-05-05 10:15 | SKI_PTH ---
PATIENT: [facility]ita Santiago [id number] AGE/SX: 38/F ROOM: RE05/05/[address]: Mikayla Crow NP : 1985 BED: DIS: 05/05/2024 SPEC #: [id number] RECD: 05/06/24 12:37 STATUS: ELIZABET REAdama #: [id number] DENISE: 05/05/24 10:[address]: Mikayla Crow DEPT: Surgical Specimen RECD BY: Yesenia Rossi ENTERED: 05/06/24 12:39 SP TYPE: MANDEEP VARGAS DR: PABLITO HuffmanP Tissues: 1 - SKIN BIOPSY(SHAVE/PUNCH) Procedures: GROSS AND MICRO LEVEL 3 Comments: [id number]
== END 2024-05-05 14:57 | disposition home or self-care (01) ==
LOC: NCHCN 14:56
PROVIDERS: PCP Nurse Practitioner Family; Visit Provider Nurse Practitioner Family
DX: D17.39 Benign lipomatous neoplasm of skin and subcutaneous tissue of other sites (principal)
CPT/HCPCS: 88304; 88305

== ENCOUNTER 2024-08-12 08:49 | Outpatient (CLI) | payer OTHER, SELFPAY ==
[2024-08-12 13:15] LABS: Hemoglobin A1C 5.3 % (<5.7)
[2024-08-12 13:16] LABS: ALT 22 U/L (14-59); AST 19 U/L (15-37); Albumin 3.9 g/dL (3.4-5.0); Alkaline Phosphatase 104 U/L (46-116); Anion Gap 8.1 mmol/L (3-11); BUN 9 mg/dL (7-18); Bilirubin, Total 1.2 mg/dL (0.2-1.0); CO2 27.9 mmol/L (21.0-32.0); CREATININE 0.8 mg/dL (0.55-1.02); Calculated LDL 156 mg/dL (<100); Chloride 107 mmol/L (98-107); Cholesterol 248 mg/dL (<200); Estimated GFR 97.26 (mL/min/1.73m2); Glucose 91 mg/dL (74-106); HDL Cholesterol 80 mg/dL (>or=50); Potassium 3.8 mmol/L (3.5-5.1); Sodium 143 mmol/L (136-145); TSH (W/Ref FT4) 2.78 uIU/mL (0.36-3.74); Total Protein 7.2 g/dL (6.4-8.2); Triglyceride 60 mg/dL (<150)
== END 2024-08-12 08:50 | disposition home or self-care (01) ==
LOC: LOS 08:49
PROVIDERS: PCP Nurse Practitioner Family; Visit Provider Nurse Practitioner Family
DX: Z00.00 Encounter for general adult medical examination without abnormal findings (principal); F41.1 Generalized anxiety disorder; E78.5 Hyperlipidemia, unspecified; Z83.49 Family history of other endocrine, nutritional and metabolic diseases
CPT/HCPCS: 36415; 80053; 80061; 83036; 84443

== ENCOUNTER 2024-08-22 00:23 | Outpatient (CLI) | payer OTHER, SELFPAY ==
--- NOTE | 2024-08-22 06:45 | DI.RAD_ITS ---
Exam(s) RF BARIUM SWALLOW EXAM: RF BARIUM SWALLOW CLINICAL HISTORY: getting food stuck,dysphagia,r13.10 TECHNIQUE: 2D and realtime digital imaging was performed. CONTRAST MATERIAL: Oral barium Oral water soluble contrast was administered. COMPARISON: No exams were available for comparison FINDINGS: ESOPHAGRAM: Performed both standing and recumbent SILVER position Swallowing mechanism is grossly intact and there is no aspiration evident. No evidence of Zenker's d iverticulum nor hypertense upper esophageal sphincter. There is some indentation of the posterior wa ll the barium by anterior osteophytes in the lower cervical spine. This is most prominent at C 6-7 l evel. There are no fixed lesions in the esophagus. No evidence of achalasia no Schatzki ring nor hiatal he rnia at the GE junction level. No reflux demonstrated. No tertiary waves. IMPRESSION: No significant abnormality evident on this esophagram. Given the patient's symptoms if clinically indicated modified barium swallow can be performed in our department in conjunction with the speech therapist RADIATION DOSE DELIVERED: naveen Salazar=15.5 mGy
[2024-08-22] MEDS: Barium Sulfate 60% W/V 355 ML BTL PO (10:04)
[2024-08-22] MEDS: Barium Sulfate 98% W/W 140 ML BTL PO (10:05)
[2024-08-22] MEDS: Simethicone/Sod Bicarb/Cit Ac, 4 gram PACKET 1 PACKET PO (10:09)
== END 2024-08-22 00:43 ==
LOC: DI 00:23
PROVIDERS: PCP Nurse Practitioner Family; Visit Provider Nurse Practitioner Family
DX: R13.10 Dysphagia, unspecified (principal)
CPT/HCPCS: 74221; J3490

== ENCOUNTER 2024-09-30 13:26 | Outpatient (REF) | payer OTHER, SELFPAY ==
[2024-10-01 12:25] LABS: Chlamydia Result Negative (Negative); GC Result Negative (Negative)
== END 2024-09-30 13:27 | disposition home or self-care (01) ==
LOC: LBN 13:26
PROVIDERS: PCP Nurse Practitioner Family; Visit Provider Obstetrics & Gynecology
DX: N94.6 Dysmenorrhea, unspecified (principal)
CPT/HCPCS: 87491; 87591

== ENCOUNTER 2024-09-30 13:51 | Outpatient (CLI) | payer OTHER, SELFPAY ==
[2024-09-30 14:11] LABS: Abs Immature Grans 0.02 10^3/uL (0.0-0.06); Absolute Eosinophil Count 0.21 10^3/uL (0.0-0.7); Absolute Lymphocyte Count 2.08 10^3/uL (1.2-3.4); Absolute Monocyte Count 0.47 10^3/uL (0.1-0.8); Absolute Neutrophil Count 4.46 10^3/uL (1.2-6.7); Eosinophils % 2.9 %; HCT 37.1 % (36.0-46.0); HGB 11.9 g/dL (11.2-15.7); Immature Grans % 0.3 %; Lymphocytes % 28.7 %; MCH 26.9 pg (27.0-33.0); MCHC 32.1 % (32.0-36.0); MCV 84 fL (80-95); MPV 9.7 fL (8.0-11.0); Monocytes % 6.5 %; Neutrophils % 61.6 %; Platelet Count 296 10^3/uL (130-400); RBC 4.43 10^6/uL (3.93-5.22); RDW 12.9 % (11.7-14.6); RDW-SD 39.8 fL; Reticulocyte 0.8 % (0.5-2.4); WBC 7.24 10^3/uL (4.4-10.8)
[2024-09-30 15:12] LABS: ALT 18 U/L (14-59); AST 19 U/L (15-37); Albumin 3.9 g/dL (3.4-5.0); Alkaline Phosphatase 94 U/L (46-116); BUN 13 mg/dL (7-18); Bilirubin, Total 0.8 mg/dL (0.2-1.0); CREATININE 0.6 mg/dL (0.55-1.02); Chloride 104 mmol/L (98-107); Estimated GFR 118.49 (mL/min/1.73m2); Glucose 93 mg/dL (74-106); Potassium 3.5 mmol/L (3.5-5.1); Sodium 139 mmol/L (136-145); Total Protein 7.3 g/dL (6.4-8.2)
== END 2024-09-30 13:52 | disposition home or self-care (01) ==
LOC: LBO 13:51
PROVIDERS: PCP Nurse Practitioner Family; Visit Provider Nurse Practitioner Family
DX: R17 Unspecified jaundice (principal); N94.6 Dysmenorrhea, unspecified
CPT/HCPCS: 36415; 80053; 87491; 87591; 85025; 85045

== ENCOUNTER 2024-12-17 15:14 | Outpatient (CLI) | payer OTHER, SELFPAY ==
--- NOTE | 2024-12-17 13:30 | DI.RAD_ITS ---
Exam(s) XR KNEE RT 2V AP,LAT EXAM: XR KNEE RT 2V AP,LAT CLINICAL HISTORY: RIGHT KNEE PAIN. TECHNIQUE: 2D digital imaging was performed. Three views. COMPARISON: MR right knee from 10/24/2010 FINDINGS: BONES: No acute fracture is present. No bony destructive lesion is seen. Bony defects related to prior ACL repair JOINTS: The knee is normally aligned. Joint spaces are maintained. No joint effusion is seen. SOFT TISSUE: Normal. IMPRESSION: Prior ACL repair. No acute abnormality DATA REPOSITORY: RADIATION DOSE DELIVERED:
== END 2024-12-17 15:15 | disposition home or self-care (01) ==
LOC: DIORS 15:14
PROVIDERS: PCP Nurse Practitioner Family; Visit Provider Student in an Organized Health Care Education/Training Program
DX: M25.561 Pain in right knee (principal)
CPT/HCPCS: 73560

== ENCOUNTER 2025-01-07 03:06 | Outpatient (CLI) | payer OTHER, SELFPAY ==
--- NOTE | 2025-01-07 13:35 | DI.MRI_ITS ---
Exam(s) MR LOWER JOINT RT WO EXAM: MR LOWER JOINT RT WO CLINICAL HISTORY: R KNEE PAIN,internal derangement, m23.91,previous acl reconstruction TECHNIQUE: Multiplanar multisequence MRI of the knee was performed. COMPARISON: MR CHAKRABORTY from 12/28/2003 ([facility]) CR XR KNEE RT 2V AP,LAT from 12/17/2024 FINDINGS: EFFUSION: There is a small knee joint effusion which is predominately related to the lateral compartment. There is no Davey cyst. MARROW:There is evidence of prior ACL surgery post ACL tear in 2003. There is significant bone contusion signal in both sides of the tibial plateau, predominantly posteriorly. There is also a T1 hypointense transverse line parallel to the articular surface in the posterior aspect of the lateral tibial plateau associated with the bone edema, consistent with a subchondral nondisplaced/nondepressed fracture. There is no fracture nor bone edema in the fibular head and neck. PATELLOFEMORAL COMPARTMENT: The quadriceps tendon is intact. The patellar ligament is intact. There is no significant thinning of the retropatellar cartilage. No evidence of fissure nor significant chondral defect. No osteochondral defect at this level.There is no intraosseous signal to suggest recent patellar dislocation. There are no patellar retinacular tears. CRUCIATE LIGAMENTS: The anterior cruciate ligament graft appears intact.The posterior cruciate ligament is intact. MEDIAL COMPARTMENT/MEDIAL MENISCUS: There are no tears of the medial meniscus evident.There are no significant osteoarthritic degenerative changes in the medial compartment. There are no chondral defects, osteochondral defects, nor subarticular edema in the medial femoral condyle. There is bone edema in the posterior aspect of the medial tibial plateau. MEDIAL COLLATERAL LIGAMENT: Intact LATERAL COMPARTMENT/LATERAL MENISCUS: Posterior horn of the lateral meniscus is intact. However, there is a horizontal tear in the anterior horn of the lateral meniscus which was not evident on the prior 2004 MRI. There is an associated tiny degenerative meniscal cyst. There are no displaced meniscal fragments. There is no evidence of tear of the inter meniscal ligament. There is minimal thinning of the articular cartilage over this area and there is a small focus extremely subtle subarticular marrow edema in the lateral aspect of the lateral femoral condyle. More prominent bone edema is noted in the subjacent posterior aspect of the lateral tibial plateau, as described above. ILIOTIBIAL BAND: Intact LATERAL COLLATERAL LIGAMENT COMPLEX: The fibular collateral ligament is intact. The biceps femoris tendon is intact.Popliteus muscle and tendon are intact. MUSCLES: There is mild edema signal in the vastus medialis and lateralis muscles as well as in the lateral gastrocnemius and soleus muscles. IMPRESSION: 1. There is no evidence of tear of the ACL graft. PCL is also intact and there are no collateral ligament tears. 2. There is a horizontal tear in the anterior horn of the lateral meniscus. No displaced meniscal fragments although there is a tiny septated associated degenerative meniscal cyst at this level. The posterior horn of the lateral meniscus appears intact. There are no tears of the medial meniscus. 3. There is significant bone contusion signal in the posterior aspects of the medial and lateral tibial plateau. In addition, there is a horizontal trabecular fracture line parallel to the articular surface of the posterior aspect of the lateral tibial plateau consistent with a non depressed/nondispla zayra subchondral fracture at this level. 4. There are minimal if any significant osteoarthritic degenerative changes in the knee in this patient who has had an ACL repair 21 years ago. 5. There is a small amount of increased joint fluid which is predominately in the lateral aspect of the joint. DATA REPOSITORY:
== END 2025-01-07 03:26 ==
LOC: DI 03:06
PROVIDERS: PCP Nurse Practitioner Family; Visit Provider Student in an Organized Health Care Education/Training Program
DX: S83.281D Other tear of lateral meniscus, current injury, right knee, subsequent encounter (principal); X58.XXXD Exposure to other specified factors, subsequent encounter
CPT/HCPCS: 73721

== ENCOUNTER 2025-03-16 02:03 | Outpatient (CLI) | payer OTHER, SELFPAY ==
[2025-03-16 12:13] LABS: Abs Immature Grans 0.03 10^3/uL (0.0-0.06); HCT 35.8 % (36.0-46.0); HGB 11.8 g/dL (11.2-15.7); Immature Grans % 0.4 %; MCH 27.2 pg (27.0-33.0); MCHC 33.0 % (32.0-36.0); MCV 83 fL (80-95); MPV 9.7 fL (8.0-11.0); Platelet Count 344 10^3/uL (130-400); RBC 4.34 10^6/uL (3.93-5.22); RDW 13.0 % (11.7-14.6); RDW-SD 39.3 fL; WBC 6.90 10^3/uL (4.4-10.8)
[2025-03-16 12:49] LABS: ALT 16 U/L (10-49); AST 22 U/L (<34); Albumin 4.6 g/dL (3.4-5.0); Alkaline Phosphatase 95 U/L (46-116); Anion Gap 10.6 mmol/L (3-11); BUN 9 mg/dL (9-23); Bilirubin, Total 1.30 mg/dL (0.2-1.2); CO2 25.4 mmol/L (20.0-31.0); Calcium 9.0 mg/dL (8.3-10.6); Chloride 105 mmol/L (98-107); Glucose 93 mg/dL (74-106); Potassium 3.4 mmol/L (3.5-5.1); Sodium 141 mmol/L (136-145); Total Protein 7.0 g/dL (5.7-8.2)
== END 2025-03-16 02:04 | disposition home or self-care (01) ==
LOC: LBO 02:03
PROVIDERS: PCP Nurse Practitioner Family; Visit Provider Obstetrics & Gynecology
DX: Z01.818 Encounter for other preprocedural examination (principal)
CPT/HCPCS: 36415; 80053; 86850; 86900; 86901; 85025

== ENCOUNTER 2025-03-18 18:54 | Observation (INO) | payer OTHER, SELFPAY ==
[2025-03-18] VITALS (26 sets, daily range): BP systolic 92–137; BP diastolic 54–86; PULSE 72–91; RESP 12–20; TEMP 36.4–37; O2SAT 95–100; BMI 31.4
--- NOTE | 2025-03-18 07:15 | HPE_ITS ---
Date of service: 03/18/25 Time of Service: 07:16 Assessment and Plan Assessment and plan (1) Dysmenorrhea: Status: Acute Assessment and plan: 38 yo ( x1, x1) presents for well woman's exam History of anxiety, hyperlipidemia, IBS, long-COVID (distorted smell / taste) ? Sexually active: Heterosexual, committed relationship heterosexual, committed relationship ?Denies any history of abuse or assault ? Contraception: Vasectomy ? Last Pap smear performed 07/17/2022-negative cytology negative HPV ? BMI 31 ? No history of cigarette smoking ? Grandmother with colon cancer diagnosed at age of 64 ? HPV vaccine completed ? 10/23/2024 TVUS: 8.6 x 4.2 x 4.6 cm uterus w/9 mm ES - - - - - - - - - - - - 09/30/2024 (Jose Antonio): Patient presents today for routine well woman's exam. S he reports notably painful periods that have been progressively worsening over the last year. Her pain no longer responds to ibuprofen, Tylenol, and heating and cold packs (though she endorses that heating and cold packs to bring some mild relief), and her pain usually makes it so that she is incapable of doing anything more than resting for at least 1 day a month. She denies pain with sex. She denies pain with bowel movements during the time of her periods, but does state that she notices her bowel movements become softer and more frequent when she is on her period (she notes this even in the setting of IBS as being different from her baseline). She reports a sister with known history of endometriosis. She is not currently on any kind of contraception, though historically, has been on OCPs. Pelvic exam is unremarkable for any overt evidence of concerns. Gonorrhea and chlamydia collected. Transvaginal ultrasound ordered. Patient provided with handout on workup and management of dysmenorrhea. Follow-up for further management. 11/12/2024 (Jose Antonio): Patient presents for review of US. A personal review of the ultrasound is overall reassuring; we discussed that there is modest evidence of adenomyosis, though this can not be solely confirmed on US. We had a thorough discussion regarding the nature of adenomyosis and its means of diagnosis. We discussed the potential utility of a diangostic and potentially therapeutic trial of an OCP. Ms. Santiago is not excited about using a control pill, but is interested in trying it for at least a few months to determine its effect. We also discussed the availability of GnRH antagonists as well as surgical investigation; she would like to trial an OCP for now. She will f/u in 3 months for assessment of effectiveness and further discussion of management. 02/12/2025 (Jose Antonio): Presents today with heating pack on her abdomen. Pain in pelvis and radiating down legs. Reports fatigue. Anticipating menses in next couple days. Did do OCP for one month but she discontinued it due to decreased sex drive and mood changes, but the pill did take care of her pain. Interested in hysterectomy. Currently on PFPT. 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 Also has an event Mar 14. Would like to consider hysterectomy for Mar 25. Week prior for pre-op and pelvic exam. General bloodwork done this year reassuring. 03/10/2025 (Jose Antonio): Patient presents today for preoperative assessment in anticipation of laparoscopic hysterectomy scheduled for next week. Of note, patient states that she is planning to attend a concert the night before and drive in the morning of the surgery; we discussed moving her case to accommodate her concert, and I encouraged her to take into consideration the potential effect that sleeplessness would have on getting to the surgery safely and recovery. However, patient is going with her father and plans to take turns driving; she feels as though this is the best course of action for her and does not wish to postpone her surgery. She brings several good questions with her today all of which were answered to the patient satisfaction. We again reviewed that surgery comes with the risks of bleeding, infection, damage to surrounding tissues, and blood clots to the legs into the lungs. We discussed that there is a chance that the surgery may not fix her pain, and there is the potential need for further surgeries in the future. We discussed that there was associated with anesthesia as well as unforeseen complications. We discussed that anytime we are performing a laparoscopic case there is always a chance that it could convert open, in which case, she would wake up with a large incision on her abdomen and a potential need for extended stay in the hospital. I anticipate at least a 1 night stay following the surgery; however, if the patient strongly desires discharge within the same day and the case remains laparoscopic, we discussed that there is a chance she could be discharged same day. We discussed that as with anytime we go to the operating room, there is always a risk of the need for blood transfusions, we discussed that blood transfusions are considered tissue transfusions we watch for tissue reactions. We also discussed that there is an extremely remote but possible risk for the trans mission of blood-borne pathogen such as HIV and hepatitis. Again, all questions were answered to the patient satisfaction and she verbalized desire to proceed with the surgery as scheduled. Her pelvic exam is reassuring; however, patient is aware that given her history of section, there is a decent chance that this case will convert to open, and she is still agreeable to this. Consented for total laparoscopic hysterectomy with bilateral salpingectomy, possible bilateral oophorectomy, possible open, with exam under anesthesia and cystoscopy. - - - - - - - - - - - - - *Consider antibiotic therapy (seen at [facility] allergy) History of Present Illness Narrative: 39 yo ( x1, x1) presents for scheduled TLH-BS, possible open with cystoscopy. Review of Systems All systems reviewed & are unremarkable except as noted in HPI and below PFSH All Active Problems Dysmenorrhea (Acute) Encounter for preoperative assessment (Acute) Bone bruise (Acute) Dysphagia, unspecified (Acute) Internal derangement of right knee (Acute 11/20/24) Knee pain, right anterior (Acute) Sinusitis (Acute) Obesity (BMI 30-39.9) (Chronic) Degenerative joint disease (DJD) of lumbar spine (Chronic) MRI 07/2022 Lumbar back pain with radiculopathy affecting lower extremity (Chronic) Long COVID (Chronic) Parosmia (Chronic) Internal hemorrhoids (Chronic) Generalized anxiety disorder (Chronic) Hyperlipidemia (Chronic) Irritable bowel syndrome with constipation and diarrhea (Chronic) Left carpal tunnel syndrome (Chronic) Medical History Anesthesia Pt. has significant anesthesia with IV start, would like skilled staff to do it one that is more likely to get it on first try if possible, and would absolutely like MKO prior to IV start! (03/16/25) Family history of thyroid disease COVID-19 virus infection Positive PCR 08/16/20 Surgical History Hx of wisdom tooth extraction S/P section (11/21/19) LTCS. Breech. [id number]. Malorie. History of repair of anterior cruciate ligament of right knee (03/09/04) S/P colonoscopy (06/25/18) Family History Mother Hyperlipidemia Hypothyroidism Asthma Type 2 diabetes mellitus Hypertension Father Hyperlipidemia Type 2 diabetes mellitus Sister Hyperlipidemia Depression Palindromic rheumatism Suspected Pericarditis Fibromyalgia Son No problems noted. Daughter No problems noted. Paternal Grandfather , in his 60s Myocardial infarction Heart disease Lung cancer Hyperlipidemia Alcohol abuse Paternal Grandmother , at 81 Lung cancer Type 2 diabetes mellitus Maternal Grandfather Alcohol abuse COPD (chronic obstructive pulmonary disease) Depression Heart disease Hyperlipidemia Hypertension Hypothyroidism Maternal Grandmother Colon cancer Social History Smoking/Tobacco Use Status: Never Second Hand Exposure: Yes Smoking risk assessment performed?: Yes Alcohol Intake: current Alcohol Intake frequency: holidays/special occasions only Alcohol type: wine and hard liquor Drug use: Never Substance use type: does not use Adopted: No Caregiver/Support person: No Household members: spouse, children and other Details: 2023. 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. Pets and animals: Yes Pets and animals: cat(s) Sexually active: Yes Do you think of yourself as: straight/heterosexual Current gender identity: female What is your relationship status?: How often do you talk on the phone with friends or family?: three or more times per week How often do you get together with friends or relatives?: three or more times per week How often do you attend roman catholic or anglican services?: decline to answer Do you belong to any clubs or organized social groups?: yes Panel score (0-1 are the most socially isolated patients): 3 What type of physical activity do you participate in: aerobic, regular exercise, other Details: [place] class, [employer] and yoga Duration: 60-90 minutes/day Frequency: 1-2 times per week Kylee/Spiritism: None Special kylee needs: No Seatbelt use: always Helmet use: Yes Helmet use: always Drive intox or ride w/intox route delivery driver: No Working smoke detector in home: Yes Carbon monox detector in home: Yes Firearms in home: Yes Firearms unloaded and locked: Yes Do you feel safe at home: Yes Do you feel safe in your relationship?: Yes Victim of physical abuse: No Victim of emotional abuse: No Victim of sexual abuse: No Would you like helpful sources: No Female Reproductive History Menstrual control method: other (Vasectomy) History History 3 Para 2 Hx # Term Pregnancies 2 Multiple births 0 Hx # Pregnancies 0 Ectopic pregnancies 0 AB induced 0 Hx Number of Living Children 1 AB spontaneous 1 Past Pregnancies Del. Date GA/Weeks # Preg Succ Route Wgt Sex Labor Lgth Anesth esia Location Prov Complic 08/14/16 38 No vaginal 6 lb 2 oz Male 8 hrs [facility]) 01/08/19 11/21/19 38 No 7 lb 1 oz Female [facility] Delivery Date: 08/14/16 Last Updated by: Lorene Marcelino SROM at home, spont labor, no complications Delivery Date: 01/08/19 Last Updated by: Lorene Marcelino SAB, had unsatisfactory experience with staff, didn't feel well treated Delivery Date: 11/21/19 Last Updated by: Juli Stone M.D. Brejennifer. Unsuccessful ECV. Malorie. Meds Allergies and Home Medications Allergies Allergy/AdvReac Type Severity Reaction Status Date / Time amoxicillin (From Augmentin) Allergy Intermediate Oral Verified 03/16/25 13:49 mucosal pain and redness clavulanic acid (From Allergy Intermediate Oral Verified 03/16/25 13:49 Augmentin) mucosal pain and redness Penicillins Allergy Intermediate swelling Verified 03/16/25 13:49 in mouth Cephalosporins Allergy Unknown Contraindic Verified 03/16/25 13:49 ated dust mites Allergy Intermediate sneezig Uncoded 03/16/25 13:49 itchy eyes Home Medications ?Medication ?Instructions ?Recorded ?Confirmed ?Type sertraline 50 mg tablet 50 mg PO DAILY #90 tabs 10/2903/16/25 Rx triamcinolone acetonide 0.1 % 1 applic topical BID #30 grams 01/22/25 03/16/25 Rx topical cream Lactobacillus acidophilus 10 100 mmu cells PO DAILY 03/16/25 History billion cell capsule (Probacap) Exam Const General: cooperative and healthy appearing Nutritional Appearance: well nourished Orientation: alert and awake HENMT Head: normocephalic Resp Effort & Inspection: normal respiratory effort Other: CTAB Cardio Other: No overt arrythmias or mumurs GI Inspection: other (without overt distension) Skin General skin exam: no rashes or lesions noted Neuro General: patient alert and patient awake Extrem General: normal to inspection Psych Appearance: well kempt Mental Status: mental status grossly normal Affect: normal affect Time Spent Time spent with Patient: 40-54 minutes Time was spent: preparing to see the patient(eg.review tests), obtaining and/or reviewing separately otained hiistory, ordering medications,tests, procedures, referring, communicating with other health child care associate teacher, indepentently interpreting results and counseling the patient
--- NOTE | 2025-03-18 10:11 | W.ANESPRE ---
General Info Date of Service Date Performed: 03/18/25 Height: 5 ft 2 in Weight: 78.1 kg Body Mass Index (BMI): 31.4 Surgical Procedure: Operation Date: 03/18/25 10:40 Proposed Procedure Side Surgeon p Hysterectomy Total Laparoscopic w/Bi-lateral Salpingectomy, Possible Bi-lateral Oopherectomy, Possible Open Amanda Brady, Meds Allergies and Home Medications Allergies Allergy/AdvReac Type Severity Reaction Status Date / Time amoxicillin (From Augmentin) Allergy Intermediate Oral Verified 03/18/25 09:45 mucosal pain and redness clavulanic acid (From Allergy Intermediate Oral Verified 03/18/25 09:45 Augmentin) mucosal pain and redness Penicillins Allergy Intermediate swelling Verified 03/18/25 09:45 in mouth Cephalosporins Allergy Unknown Contraindic Verified 03/18/25 09:45 ated dust mites Allergy Intermediate sneezig Uncoded 03/18/25 09:45 itchy eyes Home Medication ?Medication ?Instructions ?Recorded sertraline 50 mg tablet 50 mg PO DAILY #90 tabs 11/17/24 triamcinolone acetonide 0.1 % 1 applic topical BID #30 grams 01/22/25 topical cream Lactobacillus acidophilus 10 100 mmu cells PO DAILY 03/16/25 billion cell capsule (Probacap) Current Visit Medications: Current Medications Generic Name Dose Route Start Last Admin Trade Name Freq PRN Reason Stop Dose Admin Acetaminophen 1,000 mg 03/18/25 16:00 03/18/25 10:01 Acetaminophen 500 Mg Tab PO 03/18/25 23:59 1,000 mg TODAY MILADY Administration Ringer's Solution 1,000 mls @ 150 mls/hr 03/18/25 06:00 IV 03/18/25 23:59 INFUSION MILADY IV Miscellaneous Supplies 1 each 03/18/25 06:00 Iv Access IV 03/18/25 23:59 DIRECTED MILADY Sodium Chloride 0 ml 03/18/25 06:00 Normal Saline Flush 10 Ml Syr IV 03/18/25 23:59 PRN PRN Sodium Chloride 0 ml 03/18/25 06:00 Normal Saline 10 Ml Vial IJ 03/18/25 23:59 DIRECTED PRN Sterile Water 0 ml 03/18/25 06:00 Water,Injection,Sterile 10 Ml Vial IJ 03/18/25 23:59 DIRECTED PRN PFSH Active Problems Active Problems: Problem Status Onset Code Dysmenorrhea Acute N94.6 Encounter for preoperative assessment Acute Z01.818 Bone bruise Acute T14.8XXA Dysphagia, unspecified Acute R13.10 Internal derangement of right knee Acute 11/20/24 M23.91 Knee pain, right anterior Acute M25.561 Sinusitis Acute J32.9 Obesity (BMI 30-39.9) Chronic E66.9 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 has significant anesthesia with IV start, would like skilled staff to do it one that is more likely to get it on first try if possible, and would absolutely like MKO prior to IV start! (03/16/25) Family history of thyroid disease COVID-19 virus infection Positive PCR 08/16/20 Surgical History Surgical History Hx of wisdom tooth extraction S/P section (11/21/19) LTCS. Breech. [id number]. Malorie. History of repair of anterior cruciate ligament of right knee (03/09/04) S/P colonoscopy (06/25/18) Tobacco Smoking/Tobacco Use Status: Never Passive smoking exposure: No Second hand exposure: Yes Alcohol Alcohol Intake: never Substance Use Substance use: Never Substance use type: does not use Prental History History 3 Para 2 Hx # Term Pregnancies 2 Multiple births 0 Hx # Pregnancies 0 Ectopic pregnancies 0 AB induced 0 Hx Number of Living Children 1 AB spontaneous 1 Past Pregnancies Del. 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 Breech. Unsuccessful ECV. Malorie. Vital Signs and Lab Results Vital Signs Most Recent Vital Signs in EMR: Most Recent Vital Signs Temp Pulse Resp BP Pulse Ox 36.4 C L 90 20 137/73 98 03/18/25 09:20 03/18/25 09:20 03/18/25 09:20 03/18/25 09:20 03/18/25 09:20 Lab Results Blood Type / Crossmatch: Antibody Screen NEGATIVE 03/16/25 Complete Blood Count: WBC, (4.4-10.8) 6.90 10^3/uL 03/16/25, 11:55 RBC, (3.93-5.22) 4.34 10^6/uL 03/16/25, 11:55 Hgb, (11.2-15.7) 11.8 g/dL 03/16/25, 11:55 Hct, (36.0-46.0) 35.8 % L 03/16/25, 11:55 Plt Count, (130-400) 344 10^3/uL 03/16/25, 11:55 Complete Metabolic Panel: Sodium, (136-145) 141 mmol/L 03/16/25, 11:55 Potassium, (3.5-5.1) 3.4 mmol/L L 03/16/25, 11:55 Chloride, (98-107) 105 mmol/L 03/16/25, 11:55 Carbon Dioxide, (20.0-31.0) 25.4 mmol/L 03/16/25, 11:55 BUN, (9-23) 9 mg/dL 03/16/25, 11:55 Creatinine, (0.55-1.02) 0.6 mg/dL 03/16/25, 11:55 Est GFR (CKD-EPI 2020), (mL/min/1.73m2) 103.61 03/16/25, 11:55 Calcium, (8.3-10.6) 9.0 mg/dL 03/16/25, 11:55 Albumin, (3.4-5.0) 4.6 g/dL 03/16/25, 11:55 Glucose, (74-106) 93 mg/dL 03/16/25, 11:55 Liver Function Panel: ALT, (10-49) 16 U/L 03/16/25, 11:55 AST, (<34) 22 U/L 03/16/25, 11:55 Anesthesia Assessment and Plan Anesthesia History Personal History: No History of Anesthesia Complications Family History: No Family History of Anesthesia Complications Exercise Tolerance Exercise Tolerance: Metabolic Equivalents>4 Pertinent Negatives Pertinent Negatives: No Symptoms of GERD, No Major Cardiovascular Symptoms or Complaints and No Major Pulmonary Symptoms or Complaints Cardiac & Pulmonary Exam Cardiac Exam: Normal S1/S2 Heart Sounds Pulmonary Exam: Clear Bilateral Breath Sounds Implantable Cardiac Device Does patient have a Pacemaker or an ICD?: No Airway Exam Known Difficult Airway: No Mallampati Class: 2 Mouth Opening: Normal (> 3cm) Thyromental Distance: Greater than 3 cm Neck Range of Motion: Full ROM Neck Circumference: Normal Teeth Condition: Normal Dentition ASA Classification ASA Score: ASA 2 Emergency Case?: No NPO Status NPO Status: NPO Clears >2 hours, Solids >8 hours Status Status: Negative HCG Anesthesia Plan Resuscitation Status: Full Code Anesthesia Technique: General Anesthesia Airway Planned: Endotracheal Tube Pain Management: Surgeon and patient request nerve block (Rescue bilateral TAP blocks if procedure is open) Monitors Used: Standard Monitors
[2025-03-18] MEDS: Acetaminophen 500 MG TAB 1000 MG PO (10:56)
[2025-03-18] MEDS: Lactated Ringers 1,000 ML 150 ML IV ×2 (11:00→21:20)
[2025-03-18] MEDS: NORMAL SALINE IVPB (13:08)
[2025-03-18] MEDS: GENTAMICIN IVPB (13:08)
[2025-03-18] MEDS: Bupivacaine 0.25% Pres-Free W/EPI 30 ML VIAL (13:13)
[2025-03-18] MEDS: FLUORESCEIN (16:56)
--- NOTE | 2025-03-18 17:55 | ROE_ITS ---
Operative Note Operative Note PRE-OP DIAGNOSIS: Dysmenorrhea Adenomyosis, Endometriosis PROCEDURE: Total laparoscopic hysterectomy with bilateral salpingectomy and cystoscopy SURGEON: Amanda Brady ASSISTING SURGEON: Julee Potts Refer to Anesthesia Record ESTIMATED BLOOD LOSS: 250 Implants: N/A Indications: This is a 38-year-old -0-0-2 ( x 1, x 1) presenting for scheduled total laparoscopic hysterectomy with bilateral salpingectomy, possible bilateral oophorectomy, possible open with cystoscopy, for her history of debilitating dysmenorrhea responsive to hormonal therapy. Patient was unable to tolerate the side effects of hormonal therapy, and opted for definitive management. Findings: Uterus sounded to 9 cm. Globular, irregular uterus with notable vascularity. Ovaries appeared largely unremarkable and appropriate; simple cyst appreciated on right ovary. Scattered evidence of endometrial implants appreciated across the entire pelvic cavity with sparse adhesions. Procedure Description: The patient was taken to the OR with IV fluids running. She received gentamicin and clindamycin for surgical prophylaxis. General anesthesia was established, and she was positioned into the dorsal supine position using yellowfin stirrups with her arms tucked at her sides using padded arm sleds. The vagina was prepped with Betadine solution. The mons was clipped with an electric clipper, and the abdomen was prepped using chlorhexidine; at least 3 minutes was observed for drying time. She ws draped in sterile dressings. A timeout was performed. A gruber was placed in a sterile fashion. A side loading speculum was used to visualize the cervix and the anterior lip was grasped with a single-tooth tenaculum. A single stitch of 0 Vicryl was placed into the anterior lip and tied against the cervix. The cervix was dilated to accommodate the uterine sound, and uterus sounded to 9 cm. The Vcare manipulator was then introduced; the cervical cuff was ensured to entirely encompass the cervix. The endometrial balloon was insufflated, and the blue stopcock was secured into place. Gloves were changed, the legs were lowered, and attention was turned to the abdomen. The umbilical region was assessed and injected with Marcaine. A small incision was made with #11 blade, and the skin was tented up using towel clips. The abdomen was entered using an Optiview technique; once we were successfully into the abdominal cavity, the gas was connected, and pneumoperitoneum was established to 15 mmHg. A 12 mm trocar was then introduced into the right lower quadrant using direct visualization and the same was done for a 5 mm trocar in the left lower quadrant. Assessment of the pelvic cavity appreciated the above. The ureters were carefully appreciated. A LigaSure was used to perform bilateral salpingectomy, and the tubes were removed through the 12 mm port. The LigaSure was then again used to dissect the uterus on the right side, first freeing the utero-ovarian ligament and next the round ligament. The anterior leaf was then carefully dissected to release the bladder flap; this was carried across to the opposite side. The posterior leaf was then also dissected down, and the uterine vessels were carefully skeletonized. The same was done for the patient's left side. The skeletonized uterine vessels were then cauterized and cut away to allow for lateral retraction. Of note, the patient was highly vascular and we spent a considerable amount of time and careful dissection and addressing bleeders. Once the uterus and cervix were appropriately dissected and isolated, a sterile glove filled with Ray-Radhika's was introduced to the vagina as well as a moistened lap, to maintain pneumoperitoneum. A monopolar J-hook was then used to create a colpotomy. This portion of the case was complicated by periodic loss of pneumoperitoneum necessitating multiple repacking's of the vagina. The uterus along with the cervix ultimately freed itself from the vaginal cuff and was removed via the vagina without issue. The cuff was carefully assessed and closed using a series of interrupted 0 Vicryl stitches via [employer] solution's RD/TK system. Reassessment of the cuff following closure appreciated a small area of oozing towards the left inferior aspect which was successfully addressed using the monopolar cautery. Attention was then turned to the cystoscopy. The Gruber catheter was removed and fluorescein was called for. This cystoscopy scope was set up, and used to insufflate the bladder. Once insufflated, the bladder bubble was appreciated and there was no evidence of overt damage or suture along the bladder kay. Both ureteral jets were appreciated to be strong. The cystoscope was then removed, and a new Gruber was placed. Attention was returned to the pelvic cavity. The cuff was carefully irrigated and assessed and found to be hemostatic even with reduction of the pneumoperitoneum. 1 g of trans examined acid was administered in an abundance of caution. The fascia of the 12 mm port was then closed using a Fredy Ac and 0 Vicryl stitch. Pneumoperitoneum was then removed in its entirety, and the port sites were closed using 4-0 Monocryl. 2-0 Monocryl was used to close the subcutaneous tissue of the right lower quadrant. The incision sites were cleaned and covered with Steri-Strips, 2 by twos, and Tegaderms. Counts were correct x 3. The patient tolerated the procedure well was taken into the recovery room in good condition. Date of Procedure: 03/18/25
--- NOTE | 2025-03-18 18:14 | W.ANESPOSTOP ---
Postoperative Evaluation Date, Time and Location Date Performed: 03/18/25 Time Performed: 18:14 Patient Location: PACU Vital Signs Most Recent Imported Vital Signs: Most Recent Vital Signs Temp Pulse Resp BP Pulse Ox 36.6 C 88 20 111/86 100 03/18/25 18:08 03/18/25 18:08 03/18/25 18:08 03/18/25 18:06 03/18/25 18:08 Pain Score Most Recent Pain Score: Most Recent Pain Score Pain Level 0 03/18/25 18:08 Assessment Mental Status: Arousable with meaningful communication Airway and Respiratory Function: Patent airway with normal (patient baseline) respiratory exam Cardiovascular Function: Hemodynamically Stable Hydration Status: Adequately Hydrated Nausea & Vomiting: No Nausea or Vomiting Pain: Pain is tolerable per patient Peripheral Nerve Block: Patient did not receive a nerve block
[2025-03-18] MEDS: fentaNYL 100 MCG/2 ML VIAL IVP (18:15)
[2025-03-18] MEDS: Normal Saline Flush 10 ML SYR IV ×2 (19:47→22:10)
[2025-03-18] MEDS: MORPHine 2 MG/ML SYR IM (19:48)
[2025-03-18] MEDS: oxyCODONE 5 MG TAB PO (20:17)
[2025-03-18] MEDS: Docusate Sodium 100 MG CAP PO (20:17)
[2025-03-18] MEDS: Lactated Ringers 500 ML IV (20:18)
[2025-03-18] MEDS: MORPHine 2 MG/ML SYR IVP (22:09)
[2025-03-19] MEDS: Ibuprofen 600 MG TAB PO ×3 (01:29→21:13)
[2025-03-19] MEDS: oxyCODONE 5 MG TAB PO ×4 (01:30→18:56)
[2025-03-19] MEDS: Methocarbamol 500 MG TAB PO ×2 (01:30→10:50)
[2025-03-19 03:15] VITALS: BP 112/78; PULSE 78; RESP 18; TEMP 36.8; O2SAT 98
[2025-03-19] MEDS: Acetaminophen 500 MG TAB PO ×5 (03:30→18:54)
[2025-03-19] MEDS: MORPHine 2 MG/ML SYR IVP (05:52)
[2025-03-19 06:35] LABS: Abs Immature Grans 0.07 10^3/uL (0.0-0.06); HCT 31.0 % (36.0-46.0); HGB 9.9 g/dL (11.2-15.7); Immature Grans % 0.6 %; MCH 26.3 pg (27.0-33.0); MCHC 31.9 % (32.0-36.0); MCV 82 fL (80-95); MPV 10.0 fL (8.0-11.0); Platelet Count 302 10^3/uL (130-400); RBC 3.77 10^6/uL (3.93-5.22); RDW 13.2 % (11.7-14.6); RDW-SD 39.8 fL; WBC 12.23 10^3/uL (4.4-10.8)
[2025-03-19] MEDS: Docusate Sodium 100 MG CAP PO ×2 (10:53→21:13)
[2025-03-19 11:26] VITALS: BP 112/70; PULSE 80; RESP 17; TEMP 36.8; O2SAT 98
--- NOTE | 2025-03-19 14:46 | CHAPLAIN ---
Mita was sitting up in the chair when I visited. He , Adrian, is a part of the [employer] IT team. They have two kids. Mita had a hysterectomy yesterday and hoping that once through recovery she'll have relief from painful symptoms. We also talked about her recent trip to [place] with her dad to see Sir Valentino Mack in concert. 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 She appears to be well support by family. I explained my role and offered support.
--- NOTE | 2025-03-19 17:12 | PDOC.CMIN ---
Date of service: 03/19/25 Time of Service: 17:12 Care Management Initial Assmt Initial Assessment Reason for Hospitalization: total laparoscopic hysterectomy with bilateral salpingectomy and cystoscopy Functional Status/Living Situation Patient Presentation: Mita presented yesterday for an elective hysterectomy with bilateral salpingectomy and cystoscopy secondary to very painful periods. Today Mita was sitting up in bed when CM met with her. She was very pleasant, and appeared comfortable. She stated that she had some really bad pain earlier in the day, but it was more controlled. Mita was hoping to go home tonight, but her OB is planning to keep her one more night, and is transferring her to the OB floor. As CM was leaving, Mita's and children came to visit. 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[employer]) Instrumental Activities of Daily Living (ADLs): Independent Medications Medication Management: No Issues/Barriers identified Advance Directives Advance Directives: Do you have an Advance Directive: N 03/03/25, 07:46 AD On File at [facility]: N 03/03/25, 07:46 Date Asked 03/18/25 03/18/25, 19:12 AD Date Reviewed COLST On File at [facility] COLST Date Scanned Code Status Resuscitation Status Full Code Insurance Coverage/Financial Issues Insurance: Health Plans ([facility] ONLY!) Care Team Visit Care Team Role Provider Type Mikayla Crow NP Primary Care Provider NURSE PRACTITIONER Amanda Brady, DO Admit Provider OSTEOPATHIC DOCTOR Attending Provider Discharge Potential Discharge Needs: PCP F/U Appt and Surgical F/U Appt (OB) Anticipated Barriers to Discharge: None Identified Patient/Family Education Needs: Review discharge instructions, discuss Ask Me Three Transportation: Private vehicle Plan: Anticipate that Mita will discharge tomorrow with no new services. She will f/u with her OB and with her PCP and continue per her plan of care. Mita will transport home in a private vehicle. CM will continue to follow. Social Determinants of Health Screening Social Determinants of health last assessed in clinic: 03/19/25 Will the Patient Participate in the Screening?: Yes Do you worry about having a steady place to live?: no Problems where you live: no known problems In the past 12 months, have you had to go without electric, gas, oil or water in your home?: no 1. Within the past 12 months, we worried whether our food would run out before we got money to buy more.: Don't know/refused 2. Within the past 12 months, the food we bought just didn't last and we didn't have money to get more.: Don't know/refused Has lack of transportation kept you from medical appointments or from doing things needed for daily living?: no Has anyone in your life made you feel unsafe or unsupported?: no How hard is it for you to pay for the very basics like food, housing, medical care, and heating? Would you say it is:: Not hard at all Do you want help finding or keeping work or a job?: I do not need or want help If for any reason you need help with day-to-day activities such as bathing, preparing meals, shopping, managing finances, etc., do you get the help you need?: I don?t need any help How often do you feel lonely or isolated from those around you?: Never Do you speak a language other than Ukrainian at home?: No Does the patient want assistance with any of the above?: No PFSH All Active Problems Dysmenorrhea (Acute) Encounter for preoperative assessment (Acute) Bone bruise (Acute) Dysphagia, unspecified (Acute) Internal derangement of right knee (Acute 11/20/24) Knee pain, right anterior (Acute) Sinusitis (Acute) Obesity (BMI 30-39.9) (Chronic) Degenerative joint disease (DJD) of lumbar spine (Chronic) MRI 07/2022 Lumbar back pain with radiculopathy affecting lower extremity (Chronic) Long COVID (Chronic) Parosmia (Chronic) Internal hemorrhoids (Chronic) Generalized anxiety disorder (Chronic) Hyperlipidemia (Chronic) Irritable bowel syndrome with constipation and diarrhea (Chronic) Left carpal tunnel syndrome (Chronic) Medical History Needle phobia Anesthesia Pt. has significant anesthesia with IV start, would like skilled staff to do it one that is more likely to get it on first try if possible, and would absolutely like MKO prior to IV start! (03/16/25) Family history of thyroid disease COVID-19 virus infection Positive PCR 08/16/20 Surgical History Hx of wisdom tooth extraction S/P section (11/21/19) LTCS. Breech. [id number]. Malorie. History of repair of anterior cruciate ligament of right knee (03/09/04) S/P colonoscopy (06/25/18) Family History Mother Hyperlipidemia Hypothyroidism Asthma Type 2 diabetes mellitus Hypertension Father Hyperlipidemia Type 2 diabetes mellitus Sister Hyperlipidemia Depression Palindromic rheumatism Suspected Pericarditis Fibromyalgia Son No problems noted. Daughter No problems noted. Paternal Grandfather , in his 60s Myocardial infarction Heart disease Lung cancer Hyperlipidemia Alcohol abuse Paternal Grandmother , at 81 Lung cancer Type 2 diabetes mellitus Maternal Grandfather Alcohol abuse COPD (chronic obstructive pulmonary disease) Depression Heart disease Hyperlipidemia Hypertension Hypothyroidism Maternal Grandmother Colon cancer Social History Smoking/Tobacco Use Status: Never Second Hand Exposure: Yes Smoking risk assessment performed?: Yes Alcohol Intake: never Drug use: Never Substance use type: does not use Adopted: No Caregiver/Support person: No Household members: spouse, children and other Details: 2023. 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 Pets and animals: Yes Pets and animals: cat(s) Sexually active: Yes Do you think of yourself as: straight/heterosexual Current gender identity: female What is your relationship status?: How often do you talk on the phone with friends or family?: three or more times per week How often do you get together with friends or relatives?: three or more times per week How often do you attend scientologist or druze services?: decline to answer Do you belong to any clubs or organized social groups?: yes Panel score (0-1 are the most socially isolated patients): 3 What type of physical activity do you participate in: aerobic, regular exercise, other Details: [place] class, [employer] wilner and yoga Duration: 60-90 minutes/day Frequency: 1-2 times per week Kylee/Congregational: None Special kylee needs: No Seatbelt use: always Helmet use: Yes Helmet use: always Drive intox or ride w/intox flatbed truck driver: No Working smoke detector in home: Yes Carbon monox detector in home: Yes Firearms in home: Yes Firearms unloaded and locked: Yes Victim of physical abuse: No Victim of emotional abuse: No Victim of sexual abuse: No Would you like helpful sources: No Additional Social history: UTAP Female Reproductive History Menstrual control method: other (Vasectomy) History History 3 Para 2 Hx # Term Pregnancies 2 Multiple births 0 Hx # Pregnancies 0 Ectopic pregnancies 0 AB induced 0 Hx Number of Living Children 1 AB spontaneous 1 Past Pregnancies Del. 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 Unsuccessful ECV. Malorie.
[2025-03-19 18:15] VITALS: BP 127/76; PULSE 84; RESP 16; TEMP 37; O2SAT 98
[2025-03-19] MEDS: Simethicone 80 MG CHEW PO ×2 (18:15→21:13)
[2025-03-19 18:18] VITALS: TEMP 37
--- NOTE | 2025-03-19 20:21 | W.PM.PROGNOT ---
Date of Service Date of service: 03/19/25 Time of Service: 20:22 Assessment and Plan Assessment and plan (1) S/P hysterectomy: Status: Acute Assessment and plan: 39 yo (h/o x2) s/p TLH-BS w/cystoscopy from 03/18/2025 PM - Reports feeling overall well - Pain is appropriately controlled post-op (Tylenol q6 prn, Motrin 600 q6, Roxicodone 5 q6 prn, Robaxin 5 TID prn, Neurontin 300 BID) - Tolerating regular diet - Not yet passing flatus - Urinating without issue - Ambulating - IV saline locked - SCD's in place while in bed - - - - - - - - - - - - - - 03/19/2025 (Jose Antonio): Patient visited multiple times over the course of the day. She has had intermittent episodes of flaring of pain; however, she has got behind on pain medications while sleeping. When she is awakened pain medications are administered, her pain is better. Her umbilical incision was uncovered and inspected and found to be intact and reassuring. I discussed discharge planning with the patient; she request 1 more night. Patient stay overnight for continued monitoring and pain control. Discharge planning set for the a.m. - - - - - - - - - - - - - - Subjective Subjective Patient reports: no new complaints, tolerating a regular diet, voiding w/o difficulty, no flatus, no bowel movement and afebrile Exam Narrative Exam Narrative: general: Well, nourished female in no immediate distress pulm: no overt respiratory distress abdomen: soft, non-distended. Appropriately tender. Incisions C/D/covered ext: No swelling; SCD's in place psych: appropriate, cooperative Objective Last Vital Signs Temp 98.6 F 03/19/25 18:18 Pulse 84 03/19/25 18:15 Resp 16 03/19/25 18:15 BP 127/76 03/19/25 18:15 Pulse Ox 98 03/19/25 18:15 Laboratory Results - last 24 hr 03/19/25 05:38 WBC 12.23 H RBC 3.77 L Hgb 9.9 L Hct 31.0 L MCV 82 MCH 26.3 L MCHC 31.9 L RDW 13.2 Plt Count 302 MPV 10.0 Immature Gran % 0.6 Neutrophils % 83.6 Lymphocytes % 9.8 Monocytes % 5.8 Eosinophils % 0.1 Basophils % 0.1 Nucleated RBC % 0.0 Absolute Neutrophils 10.22 H Absolute Lymphocytes 1.20 Absolute Monocytes 0.71 Absolute Eosinophils 0.01 Absolute Basophils 0.01 PAWSS Have you Been Recently Intoxicated or Drunk Within the Last 30 days?: No Have you Ever Experienced Previous Episodes of Alcohol Withdrawal?: No Have you ever Experienced Withdrawal Seizures?: No Have you ever Experienced Delirium Tremens(DT)s?: No Have you ever undergone Alcohol Rehabilitation Treatment (i.e, inpt ot outpatient treatment programs)?: No Have you ever Experienced Blackouts?: No Have you ever Combined Alcohol with other Downers within the last 90 days?: No Have you ever Combined Alcohol with any other Substance of Abuse during the last 90 days?: No Positive Blood Alcohol level on Presentation? [PCS.BAL]: No Evidence of Increased Autonomic Activity (i.e. HR>120, tremor, sweating, agitation, nausea)?: No Result: 0 Time Spent with Patient Time Spent with Patient: 35-49 minutes Time was spent: preparing to see the patient(eg.review tests), obtaining and/or reviewing separately otained hiistory, ordering medications,tests, procedures, referring, communicating with other health restorative care technician, indepentently interpreting results, counseling the patient and care coordination
[2025-03-19] MEDS: Gabapentin 300 MG CAP PO (21:13)
[2025-03-19 21:31] VITALS: BP 111/70; PULSE 83; RESP 17; TEMP 36.8; O2SAT 99
[2025-03-20] MEDS: oxyCODONE 5 MG TAB PO ×4 (00:22→13:16)
[2025-03-20] MEDS: Acetaminophen 500 MG TAB PO ×4 (00:22→13:16)
[2025-03-20 00:23] VITALS: BP 99/57; PULSE 76; RESP 17; TEMP 37; O2SAT 99
[2025-03-20] MEDS: Ibuprofen 600 MG TAB PO ×2 (04:10→10:22)
[2025-03-20 04:13] VITALS: BP 107/71; PULSE 85; RESP 16; TEMP 37.2; O2SAT 99
[2025-03-20] MEDS: Docusate Sodium 100 MG CAP PO (07:59)
[2025-03-20] MEDS: Simethicone 80 MG CHEW PO ×2 (08:03→13:17)
[2025-03-20 08:07] VITALS: BP 109/75; PULSE 77; RESP 16; TEMP 36.6; O2SAT 96
[2025-03-20] MEDS: Gabapentin 300 MG CAP PO (09:07)
--- NOTE | 2025-03-20 13:00 | DSE_ITS ---
Date of service: 03/20/25 Time of Service: 13:00 DS: Diagnosis Discharge Diagnosis (1) S/P hysterectomy: Status: Acute Discharge Plan Disposition Patient Disposition: Home Condition: Good Discharge Details Reason For Visit: S/P Hysterectomy Admit Date/Time: 03/18/25 18:54 Admit Provider: Amanda Brady Attending Provider: Amanda Brady Primary Care Provider: [facility] Course Hospital Course: 39 yo ( x2) presented to [facility] OR on Sunday03/18/2025 for scheduled total laparoscopic hysterectomy with bilateral salpingectomy, which was performed as planned. She was monitored overnight and requested one additional night for patient comfort which was accomodated. Her recovery was unremarkable. On POD 2, the patient is found doing well. She reports that her pain is much better controlled. Her appetite is intact. She is ambulating with minimal issue. She is urinating and passing gas. She was discharged with instructions for close follow-up. Home Meds and New Rx's Prescriptions: New methocarbamol 500 mg Tablet 500 mg PO Q6H PRN PRN5 Days Qty: 20 0RF docusate sodium [Colace] 100 mg Capsule 100 mg PO BID 10 Days Qty: 20 0RF gabapentin 300 mg Capsule 300 mg PO BID 5 Days Qty: 10 0RF ibuprofen 600 mg Tablet 600 mg PO Q6H 5 Days Qty: 30 0RF simethicone 80 mg Tablet,Chewable 80 mg PO PC & HS 5 Days Qty: 20 0RF oxycodone 5 mg Tablet 5 mg PO Q6H PRN PRN3 Days Qty: 10 0RF Continued triamcinolone acetonide 0.1 % cream 1 applic topical BID Qty: 30 1RF Rx Instructions: Apply to rash on ring finger twice daily for 2-4 weeks and then can use PRN sertraline 50 mg tablet 50 mg PO DAILY Qty: 90 3RF Rx Instructions: Take 1 tab daily Probacap 10 billion cell capsule 100 mmu cells PO DAILY Discharge Instructions Instructions: Hysterectomy, Abdominal or Laparoscopic Surgery Additional Instructions: ? Eat a well-rounded diet ? Ambulate regularly and engage in light activity while avoiding repeated heavy lifting (over 10 pounds) ? Take your medications as prescribed ? Please be sure to attend your follow-up visits ? If you have an incision, be sure to keep it clean and dry using simple soap and water; avoid scrubbing to avoid damage to suture ? If you have been prescribed narcotics such as tramadol or oxycodone or [place], please note these medications have an addictive potential and should be used sparingly.? Please discard of any leftover medication either with your local pharmacy or by flushing the medication.? Do not share these medications with other individuals, and have a low threshold for seeking immediate medical evaluation if you experience any sleepiness, headaches, or any other concerns while using these medications. ? Please do not insert anything vaginally, including but not limited to, tampons, douching, or sexual intercourse, for a full 8 weeks and/or until you are medically cleared. ? If you have any concerns including fevers/chills, lightheadedness, visual changes, persistent headaches unresponsive to Tylenol, persistent nausea/vomiting, persistent abdominal pain, bruising and or leakage from your incision sites, excessive vaginal bleeding, or any other concerns, please have a low threshold for seeking immediate medical evaluation and/or reaching out to our clinic at [phone]. Stand Alone Forms: Portal Information Activity:: pelvic rest x6 weeks Equipment/Supplies:: No Equipment Needed Diet:: Normal Diet Discharge Orders Discharge Orders: Discharge Order (Routine); Ordered 03/20/25 Ordered By: Amanda Brady Discharge Data Discharge Date/Time-TO BE ENTERED AT DEPARTURE: 03/20/25 13:10 DS: Summary Time Spent with Patient providing and/or coordinating discharge services: Greater than 30 minutes Status at Discharge Functional status at discharge: independent ambulation Overall status at discharge: patient is progressing back to baseline Mental Status: mental status grossly normal Speech and Movement: speech and movement normal Mood: congruent mood Affect: normal affect Exam Narrative Exam Narrative: General: Well-nourished female in no immediate distress Pulm: No overt respiratory distress; able to speak in complete sentences Abdomen: Soft, nondistended. Incision are covered and clean. Extremities: No overt swelling Psych: Cooperative, appropriate Psych Mental Status: mental status grossly normal Speech and Movement: speech and movement normal Mood: congruent mood Affect: normal affect DS: Data Vitals/I&O Vitals and I&O: Vital Signs Temperature 98 F 03/20/25 08:07 Temperature Source Oral 03/20/25 08:07 Pulse 77 03/20/25 08:07 Pulse Rhythm Regular 03/18/25 20:22 Pulse 87 03/18/25 18:30 Respiratory Rate 16 03/20/25 08:07 Respiratory Effort Normal, Non-Labored 03/18/25 20:22 Respiratory Depth Normal 03/18/25 20:22 Respiratory Pattern Normal 03/18/25 20:22 Blood Pressure 109/75 03/20/25 08:07 Blood Pressure Mean 86 03/20/25 08:07 Pulse Oximetry 96 03/20/25 08:07 Respiratory End-tidal CO2 45 03/18/25 18:30 Oxygen Delivery Method Room Air 03/20/25 08:07 Oxygen Flow Rate 0 03/20/25 08:07 Pain Level 2 03/20/25 08:12 Comment pt was asleep 03/19/25 15:55 Data Completed and Pending Pending Labs at Discharge: 03/19/25 05:38 WBC 12.23 H RBC 3.77 L Hgb 9.9 L Hct 31.0 L MCV 82 MCH 26.3 L MCHC 31.9 L RDW 13.2 Plt Count 302 MPV 10.0 Immature Gran % 0.6 Neutrophils % 83.6 Lymphocytes % 9.8 Monocytes % 5.8 Eosinophils % 0.1 Basophils % 0.1 Nucleated RBC % 0.0 Absolute Neutrophils 10.22 H Absolute Lymphocytes 1.20 Absolute Monocytes 0.71 Absolute Eosinophils 0.01 Absolute Basophils 0.01 PFSH All Active Problems (Updated 03/21/25 @ 00:01 by [employer]ESMOND) S/P hysterectomy (Acute) Encounter for preoperative assessment (Acute) Bone bruise (Acute) Dysphagia, unspecified (Acute) Internal derangement of right knee (Acute 11/20/24) Knee pain, right anterior (Acute) Sinusitis (Acute) Obesity (BMI 30-39.9) (Chronic) Degenerative joint disease (DJD) of lumbar spine (Chronic) MRI 07/2022 Lumbar back pain with radiculopathy affecting lower extremity (Chronic) Long COVID (Chronic) Parosmia (Chronic) Internal hemorrhoids (Chronic) Generalized anxiety disorder (Chronic) Hyperlipidemia (Chronic) Irritable bowel syndrome with constipation and diarrhea (Chronic) Left carpal tunnel syndrome (Chronic) Medical History (Updated 03/21/25 @ 00:01 by OZZIE SAM) Needle phobia Anesthesia Pt. has significant anesthesia with IV start, would like skilled staff to do it one that is more likely to get it on first try if possible, and would absolutely like MKO prior to IV start! (03/16/25) Family history of thyroid disease COVID-19 virus infection Positive PCR 08/16/20 Surgical History (Updated 03/21/25 @ 00:01 by OZZIE SAM) Hx of wisdom tooth extraction S/P section (11/21/19) LTCS. Breech. [id number]. Malorie. History of repair of anterior cruciate ligament of right knee (03/09/04) S/P colonoscopy (06/25/18) Family History Mother Hyperlipidemia Hypothyroidism Asthma Type 2 diabetes mellitus Hypertension Father Hyperlipidemia Type 2 diabetes mellitus Sister Hyperlipidemia Depression Palindromic rheumatism Suspected Pericarditis Fibromyalgia Son No problems noted. Daughter No problems noted. Paternal Grandfather , in his 60s Myocardial infarction Heart disease Lung cancer Hyperlipidemia Alcohol abuse Paternal Grandmother , at 81 Lung cancer Type 2 diabetes mellitus Maternal Grandfather Alcohol abuse COPD (chronic obstructive pulmonary disease) Depression Heart disease Hyperlipidemia Hypertension Hypothyroidism Maternal Grandmother Colon cancer Social History Smoking/Tobacco Use Status: Never Second Hand Exposure: Yes Smoking risk assessment performed?: Yes Alcohol Intake: never Drug use: Never Substance use type: does not use Adopted: No Caregiver/Support person: No Household members: spouse, children and other Details: 2023. Loni Campbell, son Fabian 7 and daughter Lorelei 3.5 Housing: house Number of Children: 2 number of grandchildren: 1 Communication Needs: None Education Level: college Details: 4yrs Do you need help understanding health information?: Rarely current occupation: [employer]. Pets and animals: Yes Pets and animals: cat(s) Sexually active: Yes Do you think of yourself as: straight/heterosexual Current gender identity: female What is your relationship status?: How often do you talk on the phone with friends or family?: three or more times per week How often do you get together with friends or relatives?: three or more times per week How often do you attend roman catholic or mosque services?: decline to answer Do you belong to any clubs or organized social groups?: yes Panel score (0-1 are the most socially isolated patients): 3 What type of physical activity do you participate in: aerobic, regular exercise, other Details: [place] class, [employer] and yoga Duration: 60-90 minutes/day Frequency: 1-2 times per week Kylee/Jehovah'S Witness: None Special kylee needs: No Seatbelt use: always Helmet use: Yes Helmet use: always Drive intox or ride w/intox sales route driver helper: No Working smoke detector in home: Yes Carbon monox detector in home: Yes Firearms in home: Yes Firearms unloaded and locked: Yes Victim of physical abuse: No Victim of emotional abuse: No Victim of sexual abuse: No Would you like helpful sources: No Additional Social history: [employer] Female Reproductive History Menstrual control method: other (Vasectomy) History History 3 Para 2 Hx # Term Pregnancies 2 Multiple births 0 Hx # Pregnancies 0 Ectopic pregnancies 0 AB induced 0 Hx Number of Living Children 1 AB spontaneous 1 Past Pregnancies Del. Date GA/Weeks # Preg Succ Route Wgt Sex Labor Lgth Anesth esia Location Prov [facility] 08/14/16 39 No vaginal 6 lb 2 oz Male 8 hrs [facility] (Carla) 01/08/19 11/21/19 39 No 7 lb 1 oz Female Nader Neely Delivery Date: 08/14/16 Last Updated by: Lorene Marcelino SROM at home, spont labor, no complications Delivery Date: 01/08/19 Last Updated by: Lorene Marcelino SAB, had unsatisfactory experience with staff, didn't feel well treated Delivery Date: 11/21/19 Last Updated by: Juli Stone M.D. Brejennifer. Unsuccessful ECV. Malorie. Time Spent with Patient Time Spent with Patient: <45 minutes Time was spent: preparing to see the patient(eg.review tests), obtaining and/or reviewing separately otained hiistory, ordering medications,tests, procedures, referring, communicating with other health dog day care attendant, indepentently interpreting results and counseling the patient
== END 2025-03-20 13:10 | disposition home or self-care (01) ==
LOC: MS 19:00 → OBS 03-19 18:02
PROVIDERS: Admitting Provider Obstetrics & Gynecology; PCP Nurse Practitioner Family; Visit Provider Obstetrics & Gynecology
PROC: 0UT94ZZ Resection of Uterus, Percutaneous Endoscopic Approach (ICD-10-PCS; CPT 58554; principal; 2025-03-18 10:30)
DX: N94.6 Dysmenorrhea, unspecified (principal); N80.03 Adenomyosis of the uterus; N80.399 Endometriosis of the pelvic peritoneum, other specified sites, unspecified depth; N83.291 Other ovarian cyst, right side; G89.18 Other acute postprocedural pain; E66.9 Obesity, unspecified; M47.816 Spondylosis without myelopathy or radiculopathy, lumbar region; M54.16 Radiculopathy, lumbar region; F41.1 Generalized anxiety disorder; E78.5 Hyperlipidemia, unspecified; K58.2 Mixed irritable bowel syndrome; R43.8 Other disturbances of smell and taste; U09.9 Post COVID-19 condition, unspecified; Z68.31 Body mass index [BMI] 31.0-31.9, adult; R13.10 Dysphagia, unspecified
CPT/HCPCS: 58554; 36415; 85025; 88307; J0131; J0736; J1100; J1580; J2003; J2250; J2270; J2405; J2704; J3010; J3475

== ENCOUNTER 2025-03-22 19:36 | Observation (INO) | payer OTHER, SELFPAY ==
[2025-03-22] VITALS (19 sets, daily range): BP systolic 117–128; BP diastolic 58–78; PULSE 80–111; RESP 11–24; TEMP 37.7–37.8; O2SAT 93–98
--- NOTE | 2025-03-22 19:45 | DI.CT_ITS ---
Exam(s) CT ABDOMEN PELVIS W EXAM: CT ABDOMEN PELVIS W CLINICAL HISTORY: s/p hysterectomy with fever TECHNIQUE: Imaging Protocol: Axial computed tomography images with coronal and sagittal reformatted images were created and reviewed. CONTRAST MATERIAL: Intravenous: Omnipaque 350 Contrast volume:75 mL Oral: No COMPARISON: CT RENAL COLIC WO CONTRAST from 05/08/[address] CHEST PE CTA from 08/26/2018 FINDINGS: ABDOMEN: Lung Bases: There is a tiny right pleural effusion. There does appear to be a very tiny left pleural effusion present. Liver: There is slight decreased attenuation of the liver suggesting fatty infiltration. There is a stable tiny hypodensity in the left lobe of the liver. It is too small for further characterization. There are no suspicious hepatic masses. Portal, Superior Mesenteric, and Splenic Veins: Unremarkable. Gallbladder and Biliary Tract: No radiodense calculus or dilation. Pancreas: Normal density, no abnormal calcifications or inflammatory process. Spleen: Normal. Adrenals: No masses seen. Kidneys: Normal size, contour and axis. No radiodense stones or obstructive uropathy. No masses seen. Abdominal Aorta: Abdominal portion non-dilated. Veins: There is a filling defect seen within the right ovarian vein suspicious for right ovarian vein thrombosis. Bowel: There are mildly dilated loops of small bowel in the left abdomen which may represent an ileus. Questionable bowel wall thickening is seen and enteritis should be considered. There is no evidence of bowel obstruction. No pneumatosis is present. There is no portal venous gas. There is no evidence of appendicitis. Peritoneal Cavity: There is a tiny amount of free fluid in the pelvis but no focal fluid collection is seen to suggest an abscess. There is a small amount of pneumoperitoneum which may reflect the patient's recent hysterectomy. Lymph Nodes: Within normal limits. Bones: Within normal limits for the patient's age. Soft Tissues: There is mild infiltration of the soft tissues of the anterior abdomen but no focal fluid collection is seen to suggest an abscess. PELVIS: Bladder: Symmetric distention, no gross wall thickening. There is small amount of air in the dependent portion of the urinary bladder. This may be secondary to recent catheterization. Please correlate clinically. Reproductive Organs: The patient is status post hysterectomy. There is a 5.0 x 3.4 cm cyst in the right adnexa which appears to be ovarian in origin. The left ovary is unremarkable. Lymph Nodes: Within normal limits. Bones: Within normal limits for the patient's age. IMPRESSION: 1. There does appear to be a filling defect in the right ovarian vein suspicious for right ovarian vein thrombosis. 2. There is no focal fluid collection seen in the abdomen and pelvis to suggest an abscess. 3. Status post hysterectomy. 4. There is a tiny amount of free fluid and small amount of pneumoperitoneum which are likely postsurgical in nature. 5. 5.0 x 3.4 cm right adnexal cystic lesion which is likely ovarian in origin. 6. Tiny right pleural effusion. Question of a tiny left pleural effusion. 7. Mild dilatation of small bowel loops in the left abdomen without evidence of obstruction. This likely reflects an ileus. 8. The findings were discussed with Dr. Jarrell at 3:09 a.m. on 03/23/2025. 9. The preliminary [facility] report was reviewed. RADIATION DOSE DELIVERED: 290.9 mGy.cm Total DLP DATA REPOSITORY: All CT scans at this facility are submitted to the National Radiology Data Registry (NRDR) Dose Index Registry (DIR) with the [employer] (ACR). RADIATION OPTIMIZATION: All CT scans at this facility use at least one of these dose optimization techniques: automated exposure control; mA and/or kV adjustment per patient size (includes targeted exams where dose is matched to clinical indication); or iterative reconstruction.
--- NOTE | 2025-03-22 19:45 | DI.RAD_ITS ---
Exam(s) XR CHEST 2V PA LATERAL EXAM: XR CHEST 2V PA LATERAL CLINICAL HISTORY: fever TECHNIQUE: 2D digital imaging was performed of the chest. Two images were obtained. PA and lateral views were obtained. COMPARISON: CR XR CHEST 2V PA LATERAL from 09/12/2018 CR,RF RF BARIUM SWALLOW from 08/22/2024 FINDINGS: MEDIASTINUM: Normal. HEART: Normal. PULMONARY VASCULATURE: Normal. LUNGS: Clear. PLEURAL SPACE: No pleural effusion or pneumothorax. BONE:Within normal limits for the patient's age. OTHER FINDINGS:Normal. IMPRESSION: 1. No acute pulmonary findings. 2. The preliminary [facility] report was reviewed. DATA REPOSITORY: RADIATION DOSE DELIVERED:
[2025-03-22] MEDS: Normal Saline 1,000 ML 1000 ML IV (20:21)
[2025-03-22] MEDS: ACETAMINOPHEN 1,000 MG/100 ML BAG 400 MG IVPB (20:21)
[2025-03-22] MEDS: Ketorolac 15 MG/ML VIAL IVP (20:27)
[2025-03-22] MEDS: Gabapentin 300 MG CAP PO (20:27)
[2025-03-22 20:28] LABS: BE (Venous) 1 mmol/L (-2-3); HCO3 (Venous) 27 mmol/L (23-28); O2 Sat (Venous) 43 %; TCO2 (Venous) 25 mmol/L (24-29); pCO2 (Venous) 47 mmHg (41-51); pO2 (Venous) 26 mmHg
[2025-03-22] MEDS: Normal Saline - Diluent 50 ML VIAL IJ (20:29)
[2025-03-22 20:31] LABS: Abs Immature Grans 0.03 10^3/uL (0.0-0.06); HCT 33.9 % (36.0-46.0); HGB 11.0 g/dL (11.2-15.7); Immature Grans % 0.5 %; MCH 27.0 pg (27.0-33.0); MCHC 32.4 % (32.0-36.0); MCV 83 fL (80-95); MPV 9.7 fL (8.0-11.0); Platelet Count 260 10^3/uL (130-400); RBC 4.08 10^6/uL (3.93-5.22); RDW 13.2 % (11.7-14.6); RDW-SD 40.3 fL; WBC 6.32 10^3/uL (4.4-10.8)
[2025-03-22 20:32] LABS: Glucose Negative (Negative)
[2025-03-22 20:46] LABS: C & S Indicated? No; WBC Negative HPF (0-5)
[2025-03-22 20:50] LABS: Magnesium 1.8 mg/dL (1.6-2.6)
[2025-03-22 20:52] LABS: ALT 12 U/L (10-49); AST 17 U/L (<34); Albumin 4.8 g/dL (3.4-5.0); Alkaline Phosphatase 84 U/L (46-116); Anion Gap 9.7 mmol/L (3-11); BUN 5 mg/dL (9-23); Bilirubin, Total 0.80 mg/dL (0.2-1.2); CO2 26.3 mmol/L (20.0-31.0); Calcium 9.2 mg/dL (8.3-10.6); Chloride 104 mmol/L (98-107); Glucose 101 mg/dL (74-106); Potassium 3.2 mmol/L (3.5-5.1); Sodium 140 mmol/L (136-145); Total Protein 7.4 g/dL (5.7-8.2)
[2025-03-22] MEDS: Droperidol 5 MG/2 ML VIAL IVP (21:28)
[2025-03-22] MEDS: diphenhydrAMINE 50 MG/ML VIAL 25 MG IVP (21:28)
--- NOTE | 2025-03-22 21:31 | DI.[facility]_ITS ---
PROCEDURE INFORMATION: Exam: XR Chest Exam date and time: 03/22/2025 9:13 PM Age: 39 years old Clinical indication: Fever TECHNIQUE: Imaging protocol: Radiologic exam of the chest. Views: 2 views. COMPARISON: CR XR CHEST 2V PA LATERAL 09/12/2018 9:15 AM FINDINGS: Lungs: No pulmonary consolidation is seen. Pleural spaces: No pleural effusion or pneumothorax is demonstrated. Heart/Mediastinum: The heart appears normal in size. Bones/joints: The visualized bony structures appear intact. IMPRESSION: No active disease is seen in the chest. Dictated and Authenticated by: Hamzah Loco MD. Orderin Shivani Roper MD
--- NOTE | 2025-03-22 21:32 | W.ED.GENAD ---
Discharge Plan Disposition Patient Disposition: Admit to [facility] Discharge Details Clinical Impression: Postoperative hematoma involving genitourinary system following genitourinary procedure Primary Care Provider: Mikayla Crow ED Provider: Judson Parrish Home Meds and New Rx's Prescriptions: No Action triamcinolone acetonide 0.1 % cream 1 applic topical BID Qty: 30 1RF Rx Instructions: Apply to rash on ring finger twice daily for 2-4 weeks and then can use PRN sertraline 50 mg tablet 50 mg PO DAILY Qty: 90 3RF Rx Instructions: Take 1 tab daily Probacap 10 billion cell capsule 100 mmu cells PO DAILY methocarbamol 500 mg Tablet 500 mg PO Q6H PRN PRN5 Days Qty: 20 0RF docusate sodium [Colace] 100 mg Capsule 100 mg PO BID 10 Days Qty: 20 0RF gabapentin 300 mg Capsule 300 mg PO BID 5 Days Qty: 10 0RF ibuprofen 600 mg Tablet 600 mg PO Q6H 5 Days Qty: 30 0RF simethicone 80 mg Tablet,Chewable 80 mg PO PC & HS 5 Days Qty: 20 0RF oxycodone 5 mg Tablet 5 mg PO Q6H PRN PRN3 Days Qty: 10 0RF HPI General Date/Time Provider Initiated Documentation: 03/22/25 19:37. HPI Narrative: MDM/Narrative: 39-year-old female who is postop day 3 of laparoscopic hysterectomy, presents for evaluation of abdominal discomfort, fullness, and reported fever of 100.6 at home. Vital signs notable for tachycardia minimally elevated temperature. Given recent surgical procedure high concern for possible infectious etiology of presentation, will obtain screening labs, urinalysis chest x-ray. Given reported symptoms I suspect pulmonary embolism is less likely however will reconsider if workup is otherwise unrevealing. 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 ED course: There is difficulty administering contrast bolus due to patient's peripheral IV given her discomfort. As such patient was treated with droperidol 5 mg IV and Benadryl 25 mg IV to help with her anxiety related to IV placement. Many other IV was placed in the right AC with an 18-gauge catheter. Case discussed with Dr. Bangura (PU[employer] IR[employer] OPERATOR), who has reviewed the CT scan with concern for possible postoperative hematoma, recommends administering ertapenem given patient's known cephalosporin and penicillin allergies, and will admit the patient for further observation. Disposition: Admit to [facility] HPI: 39-year-old female with past history of generalized anxiety disorder, IBS, and was postop day 3 from a laparoscopic hysterectomy, presents for evaluation abdominal discomfort, fullness with early satiety, and reported fever today 100.6 degrees at home. Denies any associated dysuria, cough, shortness of breath, chest pain, leg swelling or any other new or concerning symptoms. ROS: Negative besides as mentioned above Exam: Gen: A&O NAD. Anxious and tearful HEENT: NCAT, EOMI, not icteric. External ears normal. No rhinorrhea. Moist mucous membranes. Neck: Supple, full range of motion, no observable masses, No meningeal sign. Lungs: No Respiratory distress. CV: RRR, no edema. Abdomen: Soft, nondistended, No rebound tenderness. MSK: No joint swelling, no redness. Skin: No rashes, petechiae, lesions. Normal color per patient. Neuro: Normal Gait, Grossly intact. Psych: Anxious Labs: Laboratory Tests Range/Units 03/22/25 20:11 WBC (4.4-10.8) 10^3/uL 6.32 RBC (3.93-5.22) 10^6/uL 4.08 Hgb (11.2-15.7) g/dL 11.0 L Hct (36.0-46.0) % 33.9 L MCV (80-95) fL 83 MCH (27.0-33.0) pg 27.0 MCHC (32.0-36.0) % 32.4 RDW (11.7-14.6) % 13.2 Plt Count (130-400) 10^3/uL 260 MPV (8.0-11.0) fL 9.7 Immature Gran % % 0.5 Neutrophils % % 78.3 Lymphocytes % % 13.9 Monocytes % % 4.9 Eosinophils % % 2.2 Basophils % % 0.2 Nucleated RBC % (0.0-0.3) % 0.0 Absolute Neutrophils (1.2-6.7) 10^3/uL 4.95 Absolute Lymphocytes (1.2-3.4) 10^3/uL 0.88 L Absolute Monocytes (0.1-0.8) 10^3/uL 0.31 Absolute Eosinophils (0.0-0.7) 10^3/uL 0.14 Absolute Basophils (0.0-0.2) 10^3/uL 0.01 VBG pH (7.31-7.41) 7.36 VBG pCO2 (41-51) mmHg 47 VBG pO2 mmHg 26 VBG HCO3 (23-28) mmol/L 27 VBG Total CO2 (24-29) mmol/L 25 VBG O2 Saturation % 43 VBG Base Excess (-2-3) mmol/L 1 VBG Lactate (<or=2.0) mmol/L 1.1 Sodium (136-145) mmol/L 140 Potassium (3.5-5.1) mmol/L 3.2 L Chloride (98-107) mmol/L 104 Carbon Dioxide (20.0-31.0) mmol/L 26.3 Anion Gap (3-11) mmol/L 9.7 BUN (9-23) mg/dL 5 L Creatinine (0.55-1.02) mg/dL 0.74 Est GFR (CKD-EPI 2020) (mL/min/1.73m2) 87.62 Glucose (74-106) mg/dL 101 Calcium (8.3-10.6) mg/dL 9.2 Magnesium (1.6-2.6) mg/dL 1.8 Total Bilirubin (0.2-1.2) mg/dL 0.80 AST (<34) U/L 17 ALT (10-49) U/L 12 Alkaline Phosphatase (46-116) U/L 84 Total Protein (5.7-8.2) g/dL 7.4 Albumin (3.4-5.0) g/dL 4.8 Urine Color (Yellow) Yellow Urine Clarity (Clear) Clear Urine pH (5-8) 6.5 Ur Specific [place] (1.005-1.025) 1.010 Urine Protein (Neg-Trace) mg/dL Negative Urine Ketones (Negative) mg/dL Negative Urine Blood (Negative) Small H Urine Nitrite (Negative) Negative Urine Bilirubin (Negative) Negative Urine Urobilinogen (Up to 0.2) mg/dL 0.2 Ur Leukocyte Esterase (Negative) Negative Urine RBC (0-2) HPF 3-5 H Urine WBC (0-5) HPF Negative Ur Epithelial Cells (Negative) HPF Few Urine Crystals (Negative) HPF Negative Urine Bacteria (Negative) HPF Rare Urine Casts (Negative) LPF Negative Urine Mucus (Negative) Negative Ur Culture Indicated? No Urine Glucose (Negative) mg/dL Negative Radiology: CT abdomen pelvis with IV contrast: There is a large ovoid fluid collection in the pelvis with layering attenuation as well as air-fluid levels, concerning for postoperative hematoma. No active extravasation noted, as per my read. PROCEDURE INFORMATION: Exam: XR Chest Exam date and time: 03/22/2025 8:25 PM Age: 71 years old Clinical indication: Fever and shortness of breath TECHNIQUE: Imaging protocol: Radiologic exam of the chest. Views: 2 views. COMPARISON: CR XR CHEST 2V PA LATERAL 07/21/2024 5:12 PM FINDINGS: Lungs: Unremarkable. No consolidation. Pleural spaces: Probable minimal right pleural effusion overall unchanged from prior study. Heart/Mediastinum: No change cardiomegaly. Vasculature: Aortic ectasia again seen. Bones/joints: Unremarkable. Soft tissues: There is some overlying chin artifact. IMPRESSION: Probable small right pleural effusion. Thank you for allowing us to participate in the care of your patient. Dictated and Authenticated by: Shanda Calhoun MD Related Data Home Medications ?Medication ?Instructions ?Recorded ?Confirmed sertraline 50 mg tablet 50 mg PO DAILY #90 tabs 11/17/24 03/22/25 triamcinolone acetonide 0.1 % 1 applic topical BID #30 grams 01/22/25 03/22/25 topical cream Lactobacillus acidophilus 10 100 mmu cells PO DAILY 03/16/25 03/22/25 billion cell capsule (Probacap) docusate sodium 100 mg capsule 100 mg PO BID 10 days #20 caps 03/20/25 03/22/25 (Colace) gabapentin 300 mg capsule 300 mg PO BID 5 days #10 caps 03/20/25 03/22/25 ibuprofen 600 mg tablet 600 mg PO Q6H 5 days #30 tabs 03/20/25 03/22/25 methocarbamol 500 mg tablet 500 mg PO Q6H PRN PRN 5 days #20 03/20/25 03/22/25 tabs oxycodone 5 mg tablet 5 mg PO Q6H PRN PRN 3 days #10 tabs 03/20/25 03/22/25 simethicone 80 mg chewable tablet 80 mg PO PC & HS 5 days #20 tabs 03/20/25 03/22/25 Previous Rx's ?Medication ?Instructions ?Recorded sertraline 50 mg tablet 50 mg PO DAILY #90 tabs 11/17/24 triamcinolone acetonide 0.1 % 1 applic topical BID #30 grams 01/22/25 topical cream docusate sodium 100 mg capsule 100 mg PO BID 10 days #20 caps 03/20/25 (Colace) gabapentin 300 mg capsule 300 mg PO BID 5 days #10 caps 03/20/25 ibuprofen 600 mg tablet 600 mg PO Q6H 5 days #30 tabs 03/20/25 methocarbamol 500 mg tablet 500 mg PO Q6H PRN PRN 5 days #20 03/20/25 tabs oxycodone 5 mg tablet 5 mg PO Q6H PRN PRN 3 days #10 tabs 03/20/25 simethicone 80 mg chewable tablet 80 mg PO PC & HS 5 days #20 tabs 03/20/25 Allergies Allergy/AdvReac Type Severity Reaction Status Date / Time amoxicillin (From Augmentin) Allergy Intermediate Oral Verified 03/22/25 19:48 mucosal pain and redness clavulanic acid (From Allergy Intermediate Oral Verified 03/22/25 19:48 Augmentin) mucosal pain and redness Penicillins Allergy Intermediate swelling Verified 03/22/25 19:48 in mouth Cephalosporins Allergy Unknown Contraindic Verified 03/22/25 19:48 ated dust mites Allergy Intermediate sneezig Uncoded 03/22/25 19:48 itchy eyes General Stated Complaint: Abd Prob MARGO: 3 Course Vital Signs Vital signs: Vital Signs Temperature 37.8 C H 03/22/25 19:38 Pulse 106 H 03/22/25 19:38 Respiratory Rate 18 03/22/25 19:38 Blood Pressure 117/78 03/22/25 19:38 Pulse Oximetry 95 03/22/25 19:38 Temperature 37.7 C H 03/22/25 20:14 Temperature Source Oral 03/22/25 20:14 Pulse 111 H 03/22/25 20:14 Respiratory Rate 24 03/22/25 20:14 Blood Pressure 122/67 03/22/25 20:14 Blood Pressure Mean 85 03/22/25 20:12 Blood Pressure Position Sitting 03/22/25 19:38 Pulse Oximetry 95 03/22/25 20:14 Oxygen Delivery Method Room Air 03/22/25 20:14 Oxygen Flow Rate 0 03/22/25 20:14 Pain Level 5 03/22/25 20:14 Lab/Test Results Lab/Test Results: Laboratory Tests Range/Units 03/22/25 20:11 WBC (4.4-10.8) 10^3/uL 6.32 RBC (3.93-5.22) 10^6/uL 4.08 Hgb (11.2-15.7) g/dL 11.0 L Hct (36.0-46.0) % 33.9 L MCV (80-95) fL 83 MCH (27.0-33.0) pg 27.0 MCHC (32.0-36.0) % 32.4 RDW (11.7-14.6) % 13.2 Plt Count (130-400) 10^3/uL 260 MPV (8.0-11.0) fL 9.7 Immature Gran % % 0.5 Neutrophils % % 78.3 Lymphocytes % % 13.9 Monocytes % % 4.9 Eosinophils % % 2.2 Basophils % % 0.2 Nucleated RBC % (0.0-0.3) % 0.0 Absolute Neutrophils (1.2-6.7) 10^3/uL 4.95 Absolute Lymphocytes (1.2-3.4) 10^3/uL 0.88 L Absolute Monocytes (0.1-0.8) 10^3/uL 0.31 Absolute Eosinophils (0.0-0.7) 10^3/uL 0.14 Absolute Basophils (0.0-0.2) 10^3/uL 0.01 VBG pH (7.31-7.41) 7.36 VBG pCO2 (41-51) mmHg 47 VBG pO2 mmHg 26 VBG HCO3 (23-28) mmol/L 27 VBG Total CO2 (24-29) mmol/L 25 VBG O2 Saturation % 43 VBG Base Excess (-2-3) mmol/L 1 VBG Lactate (<or=2.0) mmol/L 1.1 Sodium (136-145) mmol/L 140 Potassium (3.5-5.1) mmol/L 3.2 L Chloride (98-107) mmol/L 104 Carbon Dioxide (20.0-31.0) mmol/L 26.3 Anion Gap (3-11) mmol/L 9.7 BUN (9-23) mg/dL 5 L Creatinine (0.55-1.02) mg/dL 0.74 Est GFR (CKD-EPI 2020) (mL/min/1.73m2) 87.62 Glucose (74-106) mg/dL 101 Calcium (8.3-10.6) mg/dL 9.2 Magnesium (1.6-2.6) mg/dL 1.8 Total Bilirubin (0.2-1.2) mg/dL 0.80 AST (<34) U/L 17 ALT (10-49) U/L 12 Alkaline Phosphatase (46-116) U/L 84 Total Protein (5.7-8.2) g/dL 7.4 Albumin (3.4-5.0) g/dL 4.8 Urine Color (Yellow) Yellow Urine Clarity (Clear) Clear Urine pH (5-8) 6.5 Ur Specific [place] (1.005-1.025) 1.010 Urine Protein (Neg-Trace) mg/dL Negative Urine Ketones (Negative) mg/dL Negative Urine Blood (Negative) Small H Urine Nitrite (Negative) Negative Urine Bilirubin (Negative) Negative Urine Urobilinogen (Up to 0.2) mg/dL 0.2 Ur Leukocyte Esterase (Negative) Negative Urine RBC (0-2) HPF 3-5 H Urine WBC (0-5) HPF Negative Ur Epithelial Cells (Negative) HPF Few Urine Crystals (Negative) HPF Negative Urine Bacteria (Negative) HPF Rare Urine Casts (Negative) LPF Negative Urine Mucus (Negative) Negative Ur Culture Indicated? No Urine Glucose (Negative) mg/dL Negative PFSH All Active Problems (Updated 03/22/25 @ 22:40 by Judson Parrish MD) Postoperative hematoma involving genitourinary system following genitourinary procedure (Acute) S/P hysterectomy (Acute) Encounter for preoperative assessment (Acute) Bone bruise (Acute) Dysphagia, unspecified (Acute) Internal derangement of right knee (Acute 11/20/24) Knee pain, right anterior (Acute) Sinusitis (Acute) Obesity (BMI 30-39.9) (Chronic) Degenerative joint disease (DJD) of lumbar spine (Chronic) MRI 07/2022 Lumbar back pain with radiculopathy affecting lower extremity (Chronic) Long COVID (Chronic) Parosmia (Chronic) Internal hemorrhoids (Chronic) Generalized anxiety disorder (Chronic) Hyperlipidemia (Chronic) Irritable bowel syndrome with constipation and diarrhea (Chronic) Left carpal tunnel syndrome (Chronic) Medical History (Updated 03/22/25 @ 22:40 by Judson Parrish MD) Needle phobia Anesthesia Pt. has significant anesthesia with IV start, would like skilled staff to do it one that is more likely to get it on first try if possible, and would absolutely like MKO prior to IV start! (03/16/25) Family history of thyroid disease COVID-19 virus infection Positive PCR 08/16/20 Surgical History (Updated 03/21/25 @ 00:01 by OZZIE SAM) Hx of wisdom tooth extraction S/P section (11/21/19) LTCS. Breech. 9nch8cm. Malorie. History of repair of anterior cruciate ligament of right knee (03/09/04) S/P colonoscopy (06/25/18) Family History Mother Hyperlipidemia Hypothyroidism Asthma Type 2 diabetes mellitus Hypertension Father Hyperlipidemia Type 2 diabetes mellitus Sister Hyperlipidemia Depression Palindromic rheumatism Suspected Pericarditis Fibromyalgia Son No problems noted. Daughter No problems noted. Paternal Grandfather , in his 60s Myocardial infarction Heart disease Lung cancer Hyperlipidemia Alcohol abuse Paternal Grandmother , at 81 Lung cancer Type 2 diabetes mellitus Maternal Grandfather Alcohol abuse COPD (chronic obstructive pulmonary disease) Depression Heart disease Hyperlipidemia Hypertension Hypothyroidism Maternal Grandmother Colon cancer Social History Smoking/Tobacco Use Status: Never Second Hand Exposure: Yes Smoking risk assessment performed?: Yes Alcohol Intake: never Drug use: Never Substance use type: does not use Adopted: No Caregiver/Support person: No Household members: spouse, children and other Details: 2024. 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 Pets and animals: Yes Pets and animals: cat(s) Sexually active: Yes Do you think of yourself as: straight/heterosexual Current gender identity: female What is your relationship status?: How often do you talk on the phone with friends or family?: three or more times per week How often do you get together with friends or relatives?: three or more times per week How often do you attend jew or holiness services?: decline to answer Do you belong to any clubs or organized social groups?: yes Panel score (0-1 are the most socially isolated patients): 3 What type of physical activity do you participate in: aerobic, regular exercise, other Details: [employer] class, [employer] wilner and yoga Duration: 60-90 minutes/day Frequency: 1-2 times per week Kylee/Jew: None Special kylee needs: No Seatbelt use: always Helmet use: Yes Helmet use: always Drive intox or ride w/intox tanker driver: No Working smoke detector in home: Yes Carbon monox detector in home: Yes Firearms in home: Yes Firearms unloaded and locked: Yes Victim of physical abuse: No Victim of emotional abuse: No Victim of sexual abuse: No Would you like helpful sources: No Additional Social history: UTAP Female Reproductive History Menstrual control method: other (Vasectomy) History History 3 Para 2 Hx # Term Pregnancies 2 Multiple births 0 Hx # Pregnancies 0 Ectopic pregnancies 0 AB induced 0 Hx Number of Living Children 1 AB spontaneous 1 Past Pregnancies Del. Date GA/Weeks # Preg Succ Route Wgt Sex Labor Lgth Anesthesia Location Prov Complic 08/14/16 39 No vaginal 2778.253 g Male 8 hrs [facility] - [facility] [employer] worker (Carla) 01/08/19 11/21/19 39 No 3203.496 g Female Christie Neely Delivery Date: 08/14/16 Last Updated by: Lorene Marcelino SROM at home, spont labor, no complications Delivery Date: 01/08/19 Last Updated by: Lorene Marcelino SAB, had unsatisfactory experience with staff, didn't feel well treated Delivery Date: 11/21/19 Last Updated by: Dinorah Goss. Unsuccessful ECV. Malorie.
[2025-03-22] MEDS: Potassium Chloride 10 MEQ CAPCR 40 MEQ PO (21:33)
[2025-03-22] MEDS: Omnipaque 350 MG/ML 100 ML BTL IJ (21:45)
[2025-03-22] MEDS: Normal Saline Flush 10 ML SYR IVP (21:45)
[2025-03-22] MEDS: ERTAPENEM 1 GM in Normal Saline 50 ML IVPB (22:43)
--- NOTE | 2025-03-22 22:49 | DI.VRAD_ITS ---
PROCEDURE INFORMATION: Exam: CT Abdomen And Pelvis With Contrast Exam date and time: 03/22/2025 8:46 PM Age: 39 years old Clinical indication: Other: S/P hysterectomy with fever TECHNIQUE: Imaging protocol: Computed tomography of the abdomen and pelvis with contrast. Contrast material: 350; Contrast volume: 75 ml; Contrast route: INTRAVENOUS (IV); COMPARISON: US PELVIS TRANSVAGINAL 10/23/2024 11:52 AM FINDINGS: Lungs: Lung bases clear. Pleural spaces: Small right pleural effusion. Trace pleural fluid on the left. Liver: Normal appearing liver. Gallbladder and biliary ducts: Gallbladder partially collapsed. No calcified gallstones seen. No biliary dilatation. Pancreas: Normal appearing pancreas. Spleen: Normal appearing spleen. Adrenal glands: Normal appearing adrenal glands. Kidneys and ureters: Normal appearing kidneys. No hydronephrosis. No obstructing ureteral stones. Stomach and bowel: No oral contrast. Stomach partially decompressed. No small bowel dilatation to suggest obstruction. Normal-appearing colon. No evidence of diverticulitis or colitis. Appendix: Appendix partially obscured but normal in caliber and appearance through its visualized portion. Intraperitoneal space: Trace fluid in the deep pelvis. Small amount of extraluminal gas tracking along the upper anterior abdominal wall, presumably from the recent surgery. Vasculature: Normal caliber abdominal aorta. Lymph nodes: No pathologically enlarged mesenteric, retroperitoneal, or pelvic sidewall lymph nodes. Urinary bladder: Normal-appearing urinary bladder, moderately distended. Small amount of gas in the bladder lumen, nonspecific but commonly seen after recent bladder catheterization. Correlation with recent procedure history recommended. Reproductive: Prior hysterectomy, recent by report. Trace fluid in the pelvis. Left ovary partially obscured but normal in size. 4.5 cm x 3.3 cm enlarged right ovarian follicle with layering internal density suggesting hemorrhage within the follicle. Bones/joints: No acute fracture seen among the bones of the abdomen or pelvis. Spinal degenerative change with endplate irregularities throughout the lower thoracic spine and prominent discogenic degeneration at the lumbosacral junction. Soft tissues: Regions of focal subcutaneous density in the anterior abdominal wall, presumably trocar sites for the recent surgery. Notes: Recent hysterectomy on March 18, 2025, by report. IMPRESSION: 1. 4.5 cm x 3.3 cm enlarged right ovarian follicle with internal hemorrhage. 2. Recent hysterectomy. Trace pelvic fluid. No frankly organized drainable fluid collection. 3. No acute bowel pathology demonstrated. 4. Small right pleural effusion. Trace pleural fluid on the left. Dictated and Authenticated by: Hamzah Loco MD. Orderin Shivani Roper MD
[2025-03-22 23:04] LABS: COVID-19 PCR Negative (Negative); RSV PCR Negative (Negative)
--- NOTE | 2025-03-22 23:32 | W.PM.HP.N ---
Date of service: 03/22/25 Time of Service: 23:33 Assessment and Plan Assessment and plan (1) Postoperative fever: Status: Acute Assessment and plan: 38 yo ( x1, x1) presents for perioperative fever - History of anxiety, hyperlipidemia, IBS, long-COVID (distorted smell / taste) ? BMI 31 ? No history of cigarette smoking - 03/18/2025 TLH-BS w/cystoscopy pathology pending - Incentive spirometry - UCx pending - AM CBC pending - Right sided US doppler pending - - - - - - - - - - - - 03/23/2025 (Jose Antonio): Patient states she was feeling much better and her pain was very well-controlled following through last night. She went to bed without taking her pain medications and awoke in the morning terribly uncomfortable. She states that she checked her temperature at this time and was found to have a fever of 101. However, this improved when she took her ibuprofen. Patient states that her temps have been running 99-100 all day. Overall, she reports feeling well. No nausea, though she has had a decrease in her appetite and states that she feels quickly. She is passing flatus but has not yet had a bowel movement. She denies any shortness of breath, chest pain, lightheadedness. She denies any concerning vaginal discharge outside of scant, occasional old blood. Her heartburn symptoms declines, and her incisions were clean and did appear intact. She was shown how to perform incentive spirometry and was encouraged to do this for 5 times per hour. She does have some mild discomfort in the right calf which is different from the left; however, there is no evidence of medical swelling or erythema. Current working diagnoses include early Cellulitis, early UTI, atelectasis, mild post-op ileus, or DVT (less likely based on clinical assessment). She received 1 g of ertapenem in the ED due to an anaphylactic response to penicillins (and therefore avoidance of cephalosporins as well). UCx, AM CBC and LE US dopplers pending. SCDs to remain off until completion of lower extremity Dopplers. - - - - - - - - - - - - History of Present Illness Narrative: 29-year-old G2, P2002 ( x1, x 1) status post total laparoscopic hysterectomy with bilateral salpingectomy performed last Sunday (03/18/2025) presents to the emergency department with complaints of fevers (101 this morning) and decreased appetite. Review of Systems All systems reviewed & are unremarkable except as noted in HPI and below PFSH All Active Problems (Updated 03/22/25 @ 23:48 by Amanda Brady DO) Postoperative fever (Acute) Postoperative hematoma involving genitourinary system following genitourinary procedure (Acute) S/P hysterectomy (Acute) Encounter for preoperative assessment (Acute) Bone bruise (Acute) Dysphagia, unspecified (Acute) Internal derangement of right knee (Acute 11/20/24) Knee pain, right anterior (Acute) Sinusitis (Acute) Obesity (BMI 30-39.9) (Chronic) Degenerative joint disease (DJD) of lumbar spine (Chronic) MRI 07/2022 Lumbar back pain with radiculopathy affecting lower extremity (Chronic) Long COVID (Chronic) Parosmia (Chronic) Internal hemorrhoids (Chronic) Generalized anxiety disorder (Chronic) Hyperlipidemia (Chronic) Irritable bowel syndrome with constipation and diarrhea (Chronic) Left carpal tunnel syndrome (Chronic) Medical History Needle phobia Anesthesia Pt. has significant anesthesia with IV start, would like skilled staff to do it one that is more likely to get it on first try if possible, and would absolutely like MKO prior to IV start! (03/16/25) Family history of thyroid disease COVID-19 virus infection Positive PCR 08/16/20 Surgical History Hx of wisdom tooth extraction S/P section (11/21/19) LTCS. Breech. [id number]. Malorie. History of repair of anterior cruciate ligament of right knee (03/09/04) S/P colonoscopy (06/25/18) Family History Mother Hyperlipidemia Hypothyroidism Asthma Type 2 diabetes mellitus Hypertension Father Hyperlipidemia Type 2 diabetes mellitus Sister Hyperlipidemia Depression Palindromic rheumatism Suspected Pericarditis Fibromyalgia Son No problems noted. Daughter No problems noted. Paternal Grandfather , in his 60s Myocardial infarction Heart disease Lung cancer Hyperlipidemia Alcohol abuse Paternal Grandmother , at 81 Lung cancer Type 2 diabetes mellitus Maternal Grandfather Alcohol abuse COPD (chronic obstructive pulmonary disease) Depression Heart disease Hyperlipidemia Hypertension Hypothyroidism Maternal Grandmother Colon cancer Social History Smoking/Tobacco Use Status: Never Second Hand Exposure: Yes Smoking risk assessment performed?: Yes Alcohol Intake: never Drug use: Never Substance use type: does not use Adopted: No Caregiver/Support person: No Household members: spouse, children and other Details: 2023. 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. Pets and animals: Yes Pets and animals: cat(s) Sexually active: Yes Do you think of yourself as: straight/heterosexual Current gender identity: female What is your relationship status?: How often do you talk on the phone with friends or family?: three or more times per week How often do you get together with friends or relatives?: three or more times per week How often do you attend muslim or roman catholic services?: decline to answer Do you belong to any clubs or organized social groups?: yes Panel score (0-1 are the most socially isolated patients): 3 What type of physical activity do you participate in: aerobic, regular exercise, other Details: [place] class, [employer] and yoga Duration: 60-90 minutes/day Frequency: 1-2 times per week Kylee/Gnosticism: None Special kylee needs: No Seatbelt use: always Helmet use: Yes Helmet use: always Drive intox or ride w/intox electric pile 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 Date GA/Weeks # Preg Succ Route Wgt Sex Labor Lgth Anesthesia Location Prov Complic 08/14/16 38 No vaginal 6 lb 2 oz Male 8 hrs [place] - [facility] (Carla) 01/08/19 11/21/19 38 No 7 lb 1 oz Female [facility] Delivery Date: 08/14/16 Last Updated by: Lorene Marcelino SROM at home, spont labor, no complications Delivery Date: 01/08/19 Last Updated by: Lorene Marcelino SAB, had unsatisfactory experience with staff, didn't feel well treated Delivery Date: 11/21/19 Last Updated by: Juli Stone M.D. Breech. Unsuccessful ECV. Malorie. Meds Allergies and Home Medications Allergies Allergy/AdvReac Type Severity Reaction Status Date / Time amoxicillin (From Augmentin) Allergy Intermediate Oral Verified 03/22/25 19:48 mucosal pain and redness clavulanic acid (From Allergy Intermediate Oral Verified 03/22/25 19:48 Augmentin) mucosal pain and redness Penicillins Allergy Intermediate swelling Verified 03/22/25 19:48 in mouth Cephalosporins Allergy Unknown Contraindic Verified 03/22/25 19:48 ated dust mites Allergy Intermediate sneezig Uncoded 03/22/25 19:48 itchy eyes Home Medications ?Medication ?Instructions ?Recorded ?Confirmed ?Type sertraline 50 mg tablet 50 mg PO DAILY #90 tabs 11/17/24 03/22/25 Rx triamcinolone acetonide 0.1 % 1 applic topical BID #30 grams 01/22/25 03/22/25 Rx topical cream Lactobacillus acidophilus 10 100 mmu cells PO DAILY 03/16/25 03/22/25 History billion cell capsule (Probacap) docusate sodium 100 mg capsule 100 mg PO BID 10 days #20 caps 03/20/25 03/22/25 Rx (Colace) gabapentin 300 mg capsule 300 mg PO BID 5 days #10 caps 03/20/25 03/22/25 Rx ibuprofen 600 mg tablet 600 mg PO Q6H 5 days #30 tabs 03/20/25 03/22/25 Rx methocarbamol 500 mg tablet 500 mg PO Q6H PRN PRN 5 days #20 03/20/25 03/22/25 Rx tabs oxycodone 5 mg tablet 5 mg PO Q6H PRN PRN 3 days #10 tabs 03/20/25 03/22/25 Rx simethicone 80 mg chewable tablet 80 mg PO PC & HS 5 days #20 tabs 03/20/25 03/22/25 Rx Exam Narrative Exam Narrative: General: Well-nourished female no immediate distress; resting comfortably in her gurney Pulmonary: Clear to auscultation bilaterally without overt wheezes Cardiology: No overt arrhythmias no murmurs Abdomen: Mild distention, soft. Bandages over the incisions removed; incisions appreciated to be clean dry and intact. Redressed with clean Steri-Strips and Band-Aids. Extremities: Trace edema noted equally bilaterally. Modest calf tenderness on the right relative to the left; no erythema or unequal swelling. Psych: Cooperative, appropriate Results Imaging Additional studies: Prevoid bladder scan: 661 mL. Patient then voided 610 mL. Postvoid residual by bladder scan: 42 mL. Imaging Studies: Chest x-ray is unremarkable. CT scan findings trace pleural effusions, subcutaneous air in the anterior wall consistent with recent surgery. 4 cm cyst on the right adnexa (this is appreciated during surgery as well). Trace fluid in the pelvis also consistent with surgery. Small amount of free air in the bladder consistent with cystoscopy and recent procedure. No overt evidence of abscesses or infection. Bowels appear appropriate. Labs 03/22/25 20:11 03/22/25 20:11 Labs: Laboratory Results - last 24 hr 03/22/25 03/22/25 20:11 22:24 WBC 6.32 RBC 4.08 Hgb 11.0 L Hct 33.9 L MCV 83 MCH 27.0 MCHC 32.4 RDW 13.2 Plt Count 260 MPV 9.7 Immature Gran % 0.5 Neutrophils % 78.3 Lymphocytes % 13.9 Monocytes % 4.9 Eosinophils % 2.2 Basophils % 0.2 Nucleated RBC % 0.0 Absolute Neutrophils 4.95 Absolute Lymphocytes 0.88 L Absolute Monocytes 0.31 Absolute Eosinophils 0.14 Absolute Basophils 0.01 VBG pH 7.36 VBG pCO2 47 VBG pO2 26 VBG HCO3 27 VBG Total CO2 25 VBG O2 Saturation 43 VBG Base Excess 1 VBG Lactate 1.1 Sodium 140 Potassium 3.2 L Chloride 104 Carbon Dioxide 26.3 Anion Gap 9.7 BUN 5 L Creatinine 0.74 Est GFR (CKD-EPI 2020) 87.62 Glucose 101 Calcium 9.2 Magnesium 1.8 Total Bilirubin 0.80 AST 17 ALT 12 Alkaline Phosphatase 84 Total Protein 7.4 Albumin 4.8 Urine Color Yellow Urine Clarity Clear Urine pH 6.5 Ur Specific [place] 1.010 Urine Protein Negative Urine Ketones Negative Urine Blood Small H Urine Nitrite Negative Urine Bilirubin Negative Urine Urobilinogen 0.2 Ur Leukocyte Esterase Negative Urine RBC 3-5 H Urine WBC Negative Ur Epithelial Cells Few Urine Crystals Negative Urine Bacteria Rare Urine Casts Negative Urine Mucus Negative Ur Culture Indicated? No Urine Glucose Negative COVID-19 Source Nasopharynx SARS-CoV-2 (PCR) Negative Influenza Type A (PCR) Negative Influenza Type B (PCR) Negative RSV (PCR) Negative Last Vital Signs Temp 99.9 F H 03/22/25 20:14 Pulse 111 H 03/22/25 20:14 Resp 24 03/22/25 20:14 BP 122/67 03/22/25 20:14 Pulse Ox 95 03/22/25 20:14 Time Spent Time spent with Patient: 40-54 minutes Time was spent: preparing to see the patient(eg.review tests), obtaining and/or reviewing separately otained hiistory, ordering medications,tests, procedures, referring, communicating with other health palliative care coordinator, indepentently interpreting results and counseling the patient
[2025-03-23 00:25] VITALS: BP 125/79; PULSE 99; RESP 16; TEMP 37.2; O2SAT 99
[2025-03-23] MEDS: Ibuprofen 600 MG TAB PO ×4 (00:38→18:02)
[2025-03-23] MEDS: Docusate Sodium 100 MG CAP PO ×2 (00:38→08:32)
[2025-03-23] MEDS: Simethicone 80 MG CHEW PO ×4 (00:39→18:03)
[2025-03-23 03:33] VITALS: TEMP 37.2
[2025-03-23] MEDS: Normal Saline Flush 10 ML SYR IVP ×2 (06:14→22:08)
[2025-03-23 06:39] LABS: HCT 30.6 % (36.0-46.0); HGB 10.0 g/dL (11.2-15.7); MCH 27.0 pg (27.0-33.0); MCHC 32.7 % (32.0-36.0); MCV 83 fL (80-95); MPV 9.8 fL (8.0-11.0); Platelet Count 224 10^3/uL (130-400); RBC 3.70 10^6/uL (3.93-5.22); RDW 13.4 % (11.7-14.6); RDW-SD 40.5 fL; WBC 4.30 10^3/uL (4.4-10.8)
--- NOTE | 2025-03-23 08:00 | W.PM.PROGNOT ---
Date of Service Date of service: 03/23/25 Time of Service: 08:00 Assessment and Plan Assessment and plan (1) Thrombophlebitis of vein of pelvis: Status: Acute (2) S/P hysterectomy: Status: Acute Assessment and plan: 38 yo ( x1, x1) presents for perioperative fever - History of anxiety, hyperlipidemia, IBS, long-COVID (distorted smell / taste) ? BMI 31 ? No history of cigarette smoking - 03/18/2025 TLH-BS w/cystoscopy pathology pending - Incentive spirometry - UCx pending - Right sided US doppler pending - - - - - - - - - - - - 03/23/2025 (Jose Antonio): Patient states she was feeling much better and her pain was very well-controlled following through last night. She went to bed without taking her pain medications and awoke in the morning terribly uncomfortable. She states that she checked her temperature at this time and was found to have a fever of 101. However, this improved when she took her ibuprofen. Patient states that her temps have been running 99-100 all day. Overall, she reports feeling well. No nausea, though she has had a decrease in her appetite and states that she feels quickly. She is passing flatus but has not yet had a bowel movement. She denies any shortness of breath, chest pain, lightheadedness. She denies any concerning vaginal discharge outside of scant, occasional old blood. Her heartburn symptoms declines, and her incisions were clean and did appear intact. She was shown how to perform incentive spirometry and was encouraged to do this for 5 times per hour. She does have some mild discomfort in the right calf which is different from the left; however, there is no evidence of medical swelling or erythema. Current working diagnoses include early Cellulitis, early UTI, atelectasis, mild post-op ileus, or DVT (less likely based on clinical assessment). She received 1 g of ertapenem in the ED due to an anaphylactic response to penicillins (and therefore avoidance of cephalosporins as well). UCx, AM CBC and LE US dopplers pending. SCDs to remain off until completion of lower extremity Dopplers. 03/23/2025 @ 0800 (Jose Antonio): I received a phone call overnight from the radiologist stating that thrombosis of the right ovarian vein was appreciated on imaging. He confirmed that the cystic structure appears to be an ovarian cyst. This secured a diagnosis of septic pelvic thrombophlebitis. I initiated 80 mg of Lovenox twice daily this morning. AM CBC is reassuring; white count went from 6-4.3 and hemoglobin also decreased a little, likely secondary to delusional effect. All of this was discussed with the patient at bedside. Patient was seen this morning, and found to be doing well. She was on her way to head for her ultrasound, and was in good spirits. Pain was well-controlled. We reviewed the treatment plan for septic pelvic thrombophlebitis and all questions were answered to the patient satisfaction. Patient signed out to Dr. Potts this morning. - - - - - - - - - - - - Exam Narrative Exam Narrative: General Well-nourished female in no immediate distress general: Well-nourished female in no immediate distress. Found resting comfortably in her bed Pulm: No overt respiratory distress; able to speak in complete sentences Abdomen: Stable from prior appearance; good bowel sounds appreciated Extremities: Trace edema noted equally bilaterally; SCDs in place but not on Psych: Cooperative, appropriate Objective Last Vital Signs Temp 99.1 F 03/23/25 12:03 Pulse 82 03/23/25 08:36 Resp 18 03/23/25 08:36 BP 119/67 03/23/25 08:36 Pulse Ox 99 03/23/25 08:36 Laboratory Results - last 24 hr 03/22/25 03/22/25 03/23/25 20:11 22:24 06:15 WBC 6.32 4.30 L RBC 4.08 3.70 L Hgb 11.0 L 10.0 L Hct 33.9 L 30.6 L MCV 83 83 MCH 27.0 27.0 MCHC 32.4 32.7 RDW 13.2 13.4 Plt Count 260 224 MPV 9.7 9.8 Immature Gran % 0.5 Neutrophils % 78.3 Lymphocytes % 13.9 Monocytes % 4.9 Eosinophils % 2.2 Basophils % 0.2 Nucleated RBC % 0.0 Absolute Neutrophils 4.95 Absolute Lymphocytes 0.88 L Absolute Monocytes 0.31 Absolute Eosinophils 0.14 Absolute Basophils 0.01 VBG pH 7.36 VBG pCO2 47 VBG pO2 26 VBG HCO3 27 VBG Total CO2 25 VBG O2 Saturation 43 VBG Base Excess 1 VBG Lactate 1.1 Sodium 140 Potassium 3.2 L Chloride 104 Carbon Dioxide 26.3 Anion Gap 9.7 BUN 5 L Creatinine 0.74 Est GFR (CKD-EPI 2020) 87.62 Glucose 101 Calcium 9.2 Magnesium 1.8 Total Bilirubin 0.80 AST 17 ALT 12 Alkaline Phosphatase 84 Total Protein 7.4 Albumin 4.8 Urine Color Yellow Urine Clarity Clear Urine pH 6.5 Ur Specific [place] 1.010 Urine Protein Negative Urine Ketones Negative Urine Blood Small H Urine Nitrite Negative Urine Bilirubin Negative Urine Urobilinogen 0.2 Ur Leukocyte Esterase Negative Urine RBC 3-5 H Urine WBC Negative Ur Epithelial Cells Few Urine Crystals Negative Urine Bacteria Rare Urine Casts Negative Urine Mucus Negative Ur Culture Indicated? No Urine Glucose Negative COVID-19 Source Nasopharynx SARS-CoV-2 (PCR) Negative Influenza Type A (PCR) Negative Influenza Type B (PCR) Negative RSV (PCR) Negative VTE Prohylaxis Risk Level: Moderate/High Risk Contraindications: None Prophylaxis: Patient anticoagulated, Mechanical and Patient ambulatory Time Spent with Patient Time Spent with Patient: 25-34 minutes Time was spent: preparing to see the patient(eg.review tests), obtaining and/or reviewing separately otained hiistory, ordering medications,tests, procedures, referring, communicating with other health childcare center director, indepentently interpreting results, counseling the patient and care coordination
[2025-03-23] MEDS: Enoxaparin 80 MG/0.8 ML SYR SC ×2 (08:32→20:26)
[2025-03-23 08:36] VITALS: BP 119/67; PULSE 82; RESP 18; TEMP 37; O2SAT 99
--- NOTE | 2025-03-23 08:45 | DI.US_ITS ---
Exam(s) US LOWER EXTREMITY VENOUS RT EXAM: US LOWER EXTREMITY VENOUS RT CLINICAL HISTORY: perioperative fever w/right sided calf tenderness TECHNIQUE: Right lower extremity venous ultrasound performed using grayscale, color-flow, and spectral Doppler analysis. COMPARISON: CT CT ABDOMEN PELVIS W from 03/22/2025 FINDINGS: The right common femoral, femoral and popliteal veins demonstrate normal compressibility, augmentation, and color Doppler. The posterior tibial veins are patent. The saphenofemoral junction is unremarkable. There is no evidence of a Davey cyst. The soft tissues are unremarkable. IMPRESSION: No evidence of a right lower extremity DVT. DATA REPOSITORY:
[2025-03-23] MEDS: Polyethylene Glycol 3350 17 GM PACKET PO (10:41)
[2025-03-23] MEDS: Acetaminophen 325 MG TAB 650 MG PO (12:01)
[2025-03-23 12:03] VITALS: TEMP 37.3
--- NOTE | 2025-03-23 13:27 | PGE_ITS ---
Date of Service Date of service: 03/23/25 Time of Service: 13:28 Assessment and Plan Assessment and plan (1) S/P hysterectomy: Status: Acute (2) Thrombophlebitis of vein of pelvis: Status: Acute Assessment and plan: 38 yo ( x1, x1) presents for perioperative fever with suspected septic pelvic vein thrombophlebitis. She is now 24hrs afebrile and clinically improving. She has not had an elevated WBC count. Blood cultures are pending. She receives her second dose of Ertapenem @22:00. She is on lovenox q12hrs. I anticipate D/C in the am. The plan is to remain on lovenox x2wks. We will await culture results and determine abx coverage and duration based on that. Subjective Subjective Interval history since last seen: Pt is feeling much better today. Tolerating PO. Has had a BM now. No fever/c hills. Denies significant abdominal pain. Exam Narrative Exam Narrative: General Well-nourished female in no immediate distress general. Found resting comfortably in her bed Pulm: No overt respiratory distress; able to speak in complete sentences Psych: Cooperative, appropriate Const General: cooperative, healthy appearing and no acute distress HENMT Head: normocephalic and atraumatic Ears: hearing grossly normal bilaterally Resp Effort & Inspection: normal respiratory effort and able to speak in complete s entences Neuro General: patient alert and patient awake Psych Appearance: grossly normal Mental Status: mental status grossly normal Speech and Movement: speech and movement normal Affect: normal affect Attitude: cooperative Thought Process: normal Thought Content: normal Objective Last Vital Signs Temp 99.1 F 03/23/25 12:03 Pulse 82 03/23/25 08:36 Resp 18 03/23/25 08:36 BP 119/67 03/23/25 08:36 Pulse Ox 99 03/23/25 08:36 Laboratory Results - last 24 hr 03/22/25 03/22/25 03/23/25 20:11 22:24 06:15 WBC 6.32 4.30 L RBC 4.08 3.70 L Hgb 11.0 L 10.0 L Hct 33.9 L 30.6 L MCV 83 83 MCH 27.0 27.0 MCHC 32.4 32.7 RDW 13.2 13.4 Plt Count 260 224 MPV 9.7 9.8 Immature Gran % 0.5 Neutrophils % 78.3 Lymphocytes % 13.9 Monocytes % 4.9 Eosinophils % 2.2 Basophils % 0.2 Nucleated RBC % 0.0 Absolute Neutrophils 4.95 Absolute Lymphocytes 0.88 L Absolute Monocytes 0.31 Absolute Eosinophils 0.14 Absolute Basophils 0.01 VBG pH 7.36 VBG pCO2 47 VBG pO2 26 VBG HCO3 27 VBG Total CO2 25 VBG O2 Saturation 43 VBG Base Excess 1 VBG Lactate 1.1 Sodium 140 Potassium 3.2 L Chloride 104 Carbon Dioxide 26.3 Anion Gap 9.7 BUN 5 L Creatinine 0.74 Est GFR (CKD-EPI 2020) 87.62 Glucose 101 Calcium 9.2 Magnesium 1.8 Total Bilirubin 0.80 AST 17 ALT 12 Alkaline Phosphatase 84 Total Protein 7.4 Albumin 4.8 Urine Color Yellow Urine Clarity Clear Urine pH 6.5 Ur Specific [place] 1.010 Urine Protein Negative Urine Ketones Negative Urine Blood Small H Urine Nitrite Negative Urine Bilirubin Negative Urine Urobilinogen 0.2 Ur Leukocyte Esterase Negative Urine RBC 3-5 H Urine WBC Negative Ur Epithelial Cells Few Urine Crystals Negative Urine Bacteria Rare Urine Casts Negative Urine Mucus Negative Ur Culture Indicated? No Urine Glucose Negative COVID-19 Source Nasopharynx SARS-CoV-2 (PCR) Negative Influenza Type A (PCR) Negative Influenza Type B (PCR) Negative RSV (PCR) Negative VTE Prohylaxis Risk Level: Low Risk Contraindications: None Prophylaxis: Patient anticoagulated Time Spent with Patient Time Spent with Patient: 25-34 minutes Time was spent: preparing to see the patient(eg.review tests), obtaining and/or reviewing separately [facility], referring, communicating with other health rn transitional care and counseling the patient
[2025-03-23 20:15] VITALS: BP 107/56; PULSE 78; RESP 18; TEMP 37.2
[2025-03-23] MEDS: ERTAPENEM 1 GM in Normal Saline 50 ML IVPB (22:07)
[2025-03-23 23:30] VITALS: BP 108/74; PULSE 76; TEMP 37; O2SAT 18
[2025-03-24] MEDS: Simethicone 80 MG CHEW PO ×2 (03:14→09:00)
[2025-03-24] MEDS: Ibuprofen 600 MG TAB PO ×2 (03:14→08:59)
[2025-03-24 03:23] VITALS: BP 107/67; PULSE 70; RESP 18; TEMP 37.1
[2025-03-24] MEDS: Enoxaparin 80 MG/0.8 ML SYR SC (08:27)
[2025-03-24 08:30] VITALS: BP 117/85; PULSE 76; RESP 16; TEMP 37
--- NOTE | 2025-03-24 08:54 | W.PM.DS.N ---
Date of service: 03/24/25 Time of Service: 08:54 DS: Diagnosis Discharge Diagnosis (1) S/P hysterectomy: Status: Acute (2) Thrombophlebitis of vein of pelvis: Status: Acute Asessment and Plan: Pt is a 39yo P2 who was admitted POD#4 s/p TLH with post-op fever. 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 She was started on Ertapenem and lovenox. She continued on tylenol and ibuprofen for post op pain management. She had a normal WBC count and remained afebrile after her ED stay. On HD#2 she was feeling much better. By HD#3 her blood cultures returned negative and she continued without fever. Therefore she was discharged to home with the plan to continue lovenox for 2wks pp and will transition to PO cipro and metronidazole. We reviewed lovenox injections and increased risk of bruising/bleeding. She will f/u next week with Dr. Brady. Discharge Plan Discharge Details Reason For Visit: Post-op Fever Admit Date/Time: 03/22/25 23:11 Admit Provider: Amanda Brady Attending Provider: Amanda Brady Primary Care Provider: Mikayla Crow Hospital Course Hospital Course: Pt is a 39yo P2 who was admitted POD#4 s/p TLH with post-op fever. 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 She was started on Ertapenem and lovenox. She continued on tylenol and ibuprofen for post op pain management. She had a normal WBC count and remained afebrile after her ED stay. On HD#2 she was feeling much better. By HD#3 her blood cultures returned negative and she continued without fever. Therefore she was discharged to home with the plan to continue lovenox for 2wks pp and will transition to PO cipro and metronidazole. Home Meds and New Rx's Prescriptions: New acetaminophen 325 mg Tablet 650 mg PO Q6H PRN PRNQty: 0 0RF enoxaparin 80 mg/0.8 mL Syringe 80 mg SC Q12H Qty: 8 2RF ciprofloxacin HCl [Cipro] 500 mg tablet 500 mg PO Q12H Qty: 20 0RF metronidazole 500 mg tablet 500 mg PO BID Qty: 20 0RF Continued triamcinolone acetonide 0.1 % cream 1 applic topical BID Qty: 30 1RF Rx Instructions: Apply to rash on ring finger twice daily for 2-4 weeks and then can use PRN sertraline 50 mg tablet 50 mg PO DAILY Qty: 90 3RF Rx Instructions: Take 1 tab daily Probacap 10 billion cell capsule 100 mmu cells PO DAILY methocarbamol 500 mg Tablet 500 mg PO Q6H PRN PRN5 Days Qty: 20 0RF ibuprofen 600 mg Tablet 600 mg PO Q6H 5 Days Qty: 30 0RF simethicone 80 mg Tablet,Chewable 80 mg PO PC & HS 5 Days Qty: 20 0RF oxycodone 5 mg Tablet 5 mg PO Q6H PRN PRN3 Days Qty: 10 0RF Changed docusate sodium [Colace] 100 mg Capsule 100 mg PO BID PRN (Reason: Abdominal Discomfort) 10 Days Qty: 20 0RF Discontinued gabapentin 300 mg Capsule 300 mg PO BID 5 Days Qty: 10 0RF Discharge Instructions Instructions: Sepsis in adults - Discharge instructions Activity:: No lifting >20lbs Equipment/Supplies:: No Equipment Needed Diet:: As Tolerated DS: Summary Time Spent with Patient providing and/or coordinating discharge services: Less than 30 minutes Status at Discharge Functional status at discharge: independent ambulation Overall status at discharge: patient is back to baseline Mental Status: mental status grossly normal Speech and Movement: speech and movement normal Mood: congruent mood Affect: normal affect Exam Const General: cooperative, healthy appearing and no acute distress HENAL Head: normocephalic and atraumatic Ears: hearing grossly normal bilaterally Resp Effort & Inspection: normal respiratory effort and able to speak in complete sentences GI Other: Incisions well healed with old bruising around each. Abdomen nontender, soft. Neuro General: patient alert and patient awake Psych Appearance: grossly normal Mental Status: mental status grossly normal Speech and Movement: speech and movement normal Mood: congruent mood Affect: normal affect Attitude: cooperative Thought Process: normal Thought Content: normal DS: Data Vitals/I&O Vitals and I&O: Vital Signs Temperature 98.7 F 03/24/25 03:23 Temperature Source Tympanic 03/24/25 03:23 Pulse 70 03/24/25 03:23 Pulse 85 03/22/25 23:40 Respiratory Rate 18 03/24/25 03:23 Blood Pressure 107/67 03/24/25 03:23 Blood Pressure Mean 80 03/24/25 03:23 Blood Pressure Position Sitting 03/22/25 19:38 Pulse Oximetry 18 L 03/23/25 23:30 Oxygen Delivery Method Room Air 03/24/25 03:23 Oxygen Flow Rate 0 03/24/25 03:23 Pain Level 2 03/24/25 03:23 Comment Prior to acetaminophen administration. 03/23/25 12:03 Intake & Output 03/23/25 03/23/25 03/24/25 11:59 23:59 11:59 Intake Total 150 / 150 Output Total 1175 / 1175 Balance -1025 / -1025 Intake: Oral 150 / 150 Output: Urine 1175 / 1175 Data Completed and Pending Pending Labs at Discharge: 03/22/25 03/22/25 03/23/25 20:11 22:24 06:15 WBC 6.32 4.30 L RBC 4.08 3.70 L Hgb 11.0 L 10.0 L Hct 33.9 L 30.6 L MCV 83 83 MCH 27.0 27.0 MCHC 32.4 32.7 RDW 13.2 13.4 Plt Count 260 224 MPV 9.7 9.8 Immature Gran % 0.5 Neutrophils % 78.3 Lymphocytes % 13.9 Monocytes % 4.9 Eosinophils % 2.2 Basophils % 0.2 Nucleated RBC % 0.0 Absolute Neutrophils 4.95 Absolute Lymphocytes 0.88 L Absolute Monocytes 0.31 Absolute Eosinophils 0.14 Absolute Basophils 0.01 VBG pH 7.36 VBG pCO2 47 VBG pO2 26 VBG HCO3 27 VBG Total CO2 25 VBG O2 Saturation 43 VBG Base Excess 1 VBG Lactate 1.1 Sodium 140 Potassium 3.2 L Chloride 104 Carbon Dioxide 26.3 Anion Gap 9.7 BUN 5 L Creatinine 0.74 Est GFR (CKD-EPI 2020) 87.62 Glucose 101 Calcium 9.2 Magnesium 1.8 Total Bilirubin 0.80 AST 17 ALT 12 Alkaline Phosphatase 84 Total Protein 7.4 Albumin 4.8 Urine Color Yellow Urine Clarity Clear Urine pH 6.5 Ur Specific [place] 1.010 Urine Protein Negative Urine Ketones Negative Urine Blood Small H Urine Nitrite Negative Urine Bilirubin Negative Urine Urobilinogen 0.2 Ur Leukocyte Esterase Negative Urine RBC 3-5 H Urine WBC Negative Ur Epithelial Cells Few Urine Crystals Negative Urine Bacteria Rare Urine Casts Negative Urine Mucus Negative Ur Culture Indicated? No Urine Glucose Negative COVID-19 Source Nasopharynx SARS-CoV-2 (PCR) Negative Influenza Type A (PCR) Negative Influenza Type B (PCR) Negative RSV (PCR) Negative Preliminary micro results at discharge 03/22/25 22:44 Blood Blood Culture - Preliminary NO GROWTH 24 HOURS 03/22/25 20:11 Blood Blood Culture - Preliminary NO GROWTH 24 HOURS 03/22/25 00:00 Urine - Clean Catch Urine Culture - Pending [facility] All Active Problems (Updated 03/23/25 @ 20:13 by Julee Potts MD) Thrombophlebitis of vein of pelvis (Acute) Postoperative fever (Acute) S/P hysterectomy (Acute) Bone bruise (Acute) Dysphagia, unspecified (Acute) Internal derangement of right knee (Acute 11/20/24) Knee pain, right anterior (Acute) Sinusitis (Acute) Obesity (BMI 30-39.9) (Chronic) Left carpal tunnel syndrome (Chronic) Irritable bowel syndrome with constipation and diarrhea (Chronic) Hyperlipidemia (Chronic) Generalized anxiety disorder (Chronic) Internal hemorrhoids (Chronic) Parosmia (Chronic) Long COVID (Chronic) Lumbar back pain with radiculopathy affecting lower extremity (Chronic) Degenerative joint disease (DJD) of lumbar spine (Chronic) MRI 07/2022 Medical History (Updated 03/23/25 @ 20:13 by Julee Potts MD) Needle phobia Anesthesia Pt. has significant anesthesia with IV start, would like skilled staff to do it one that is more likely to get it on first try if possible, and would absolutely like MKO prior to IV start! (03/16/25) Family history of thyroid disease COVID-19 virus infection Positive PCR 08/16/20 Surgical History Hx of wisdom tooth extraction S/P section (11/21/19) LTCS. Breech. [id number]. Malorie. History of repair of anterior cruciate ligament of right knee (03/09/04) S/P colonoscopy (06/25/18) Family History Mother Hyperlipidemia Hypothyroidism Asthma Type 2 diabetes mellitus Hypertension Father Hyperlipidemia Type 2 diabetes mellitus Sister Hyperlipidemia Depression Palindromic rheumatism Suspected Pericarditis Fibromyalgia Son No problems noted. Daughter No problems noted. Paternal Grandfather , in his 60s Myocardial infarction Heart disease Lung cancer Hyperlipidemia Alcohol abuse Paternal Grandmother , at 81 Lung cancer Type 2 diabetes mellitus Maternal Grandfather Alcohol abuse COPD (chronic obstructive pulmonary disease) Depression Heart disease Hyperlipidemia Hypertension Hypothyroidism Maternal Grandmother Colon cancer Social History Smoking/Tobacco Use Status: Never Second Hand Exposure: Yes Smoking risk assessment performed?: Yes Alcohol Intake: never Drug use: Never Substance use type: does not use Adopted: No Caregiver/Support person: No Household members: spouse, children and other Details: 2023. Loni Campbell, son Fabian 7 and daughter Lorelei 3.5 Housing: house Number of Children: 2 number of grandchildren: 1 Communication Needs: None Education Level: college Details: 4yrs Do you need help understanding health information?: Rarely current occupation: [employer]. Pets and animals: Yes Pets and animals: cat(s) Sexually active: Yes Do you think of yourself as: straight/heterosexual Current gender identity: female What is your relationship status?: How often do you talk on the phone with friends or family?: three or more times per week How often do you get together with friends or relatives?: three or more times per week How often do you attend roman catholic or baptism services?: decline to answer Do you belong to any clubs or organized social groups?: yes Panel score (0-1 are the most socially isolated patients): 3 What type of physical activity do you participate in: aerobic, regular exercise, other Details: Hope class, w[employer] wilner and yoga Duration: 60-90 minutes/day Frequency: 1-2 times per week Kylee/Jew: None Special kylee needs: No Seatbelt use: always Helmet use: Yes Helmet use: always Drive intox or ride w/intox cdl truck driver: No Working smoke detector in home: Yes Carbon monox detector in home: Yes Firearms in home: Yes Firearms unloaded and locked: Yes Victim of physical abuse: No Victim of emotional abuse: No Victim of sexual abuse: No Would you like helpful sources: No Additional Social history: UTAP Female Reproductive History Menstrual control method: other (Vasectomy) History History 3 Para 2 Hx # Term Pregnancies 2 Multiple births 0 Hx # Pregnancies 0 Ectopic pregnancies 0 AB induced 0 Hx Number of Living Children 1 AB spontaneous 1 Past Pregnancies Del. 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 Breech. Unsuccessful ECV. Malorie. Time Spent with Patient Time Spent with Patient: <45 minutes Time was spent: preparing to see the patient(eg.review tests), obtaining and/or reviewing separately otained hiistory, referring, communicating with other health healthcare representative and counseling the patient
[2025-03-24 08:59] VITALS: TEMP 36.7
== END 2025-03-24 11:30 ==
LOC: ER 22:40 → OBS 23:48
PROVIDERS: Admitting Provider Obstetrics & Gynecology; Emergency Provider General Practice; PCP Nurse Practitioner Family; Visit Provider Obstetrics & Gynecology
DX: I80.8 Phlebitis and thrombophlebitis of other sites (principal); R50.82 Postprocedural fever; N83.01 Follicular cyst of right ovary; Z90.710 Acquired absence of both cervix and uterus; E78.5 Hyperlipidemia, unspecified; R43.8 Other disturbances of smell and taste; U09.9 Post COVID-19 condition, unspecified; E66.9 Obesity, unspecified; K58.2 Mixed irritable bowel syndrome; F41.1 Generalized anxiety disorder; M47.26 Other spondylosis with radiculopathy, lumbar region; Z68.31 Body mass index [BMI] 31.0-31.9, adult
CPT/HCPCS: 36415; 51798; 80053; 82805; 85027; 87040; 87637; 96361; 96365; 96375; 99285; 71046; 74177; 81003; 81015; 83605; 83735; 85025; 87086; 93971; G0378; J0131; J1200; J1335; J1650; J1790; J1885; J3490

== ENCOUNTER 2025-03-27 11:49 | Observation (INO) | payer OTHER, SELFPAY ==
[2025-03-27] VITALS (29 sets, daily range): BP systolic 110–137; BP diastolic 69–88; PULSE 69–101; RESP 16; TEMP 36.8–37.1; O2SAT 97–100
--- NOTE | 2025-03-27 12:30 | DI.CT_ITS ---
Exam(s) CT ABDOMEN PELVIS W EXAM: CT ABDOMEN PELVIS W CLINICAL HISTORY: s/p hysterectomy, septic thrombophlebitis. TECHNIQUE: Imaging Protocol: Axial computed tomography images with coronal and sagittal reformatted images were created and reviewed CONTRAST MATERIAL: Intravenous: Omnipaque 350 Contrast volume: 75 ml Oral: no COMPARISON: CT CT ABDOMEN PELVIS W from 03/22/2025 FINDINGS: ABDOMEN and PELVIS: Lung Bases: No acute findings. Liver: mild fatty infiltration. No suspicious mass. Gallbladder and biliary tract: No radiodense calculus. No wall thickening or pericholecystic fluid. No biliary dilation. Pancreas: Normal density. No abnormal calcifications or inflammatory process. No evidence of mass. Spleen: Normal. Kidneys: Kidneys appear bilaterally enlarged compared with the previous exam. There is decreased patchy perfusion bilaterally, consistent with pyelonephritis. No perinephric collection or abscess. No radiodense stones. No obstructive uropathy. No suspicious masses seen. Adrenal glands: No masses seen. Vasculature: Abdominal aorta non-dilated. Partially occlusive right ovarian vein thrombus is again noted. There appears have been some improvement when compared with the previous exam. Soft tissues: Mild focal area increased density in the right lower quadrant subcutaneous fat related to recent surgery. No evidence of abscess. Bladder: Air noted in the bladder lumen, presumably secondary to catheterization. No gross wall thickening. No calculi.No focal mass. Bowel: Small diverticulum of the descending duodenum. No obstruction. No bowel wall thickening. Appendix normal. Moderate quantity of stool. Peritoneal cavity: There is trace fluid low in the pelvis. No focal collection. No mesenteric inflammatory response. No free air. Bones: Unremarkable for age. Reproductive organs: Hysterectomy. Stable right ovarian cyst measuring 5 x 3.5. No evidence of abscess. Lymph nodes: No pathologically enlarged lymph nodes. IMPRESSION:: Bilaterally enlarged kidneys decreased perfusion consistent with pyelonephritis. Air within urinary bladder, presumably related to catheterization. No evidence of wall thickening. Stable 5 centimeter right ovarian cyst. Findings were called to Dr. Whitaker of the emergency department RADIATION DOSE DELIVERED: 607.71mGy.cm Total DLP DATA REPOSITORY: All CT scans at this facility are submitted to the National Radiology Data Registry (NRDR) Dose Index Registry (DIR) with the [employer] (ACR). RADIATION OPTIMIZATION: All CT scans at this facility use at least one of these dose optimization techniques: automated exposure control; mA and/or kV adjustment per patient size (includes targeted exams where dose is matched to clinical indication); or iterative reconstruction.
--- NOTE | 2025-03-27 12:42 | ED.GENADUL_ITS ---
Discharge Plan Disposition Patient Disposition: Admit to [facility] Condition: Stable Discharge Details Clinical Impression: AVERY (acute kidney injury), Nausea & vomiting, S/P hysterectomy, Thrombophlebitis of vein of pelvis Primary Care Provider: Mikayla Crow ED Provider: Awilda Whitaker Home Meds and New Rx's Prescriptions: No Action triamcinolone acetonide 0.1 % cream 1 applic topical BID Qty: 30 1RF Rx Instructions: Apply to rash on ring finger twice daily for 2-4 weeks and then can use PRN sertraline 50 mg tablet 50 mg PO DAILY Qty: 90 3RF Rx Instructions: Take 1 tab daily Probacap 10 billion cell capsule 100 mmu cells PO DAILY acetaminophen 325 mg Tablet 650 mg PO Q6H PRN PRNQty: 0 0RF enoxaparin 80 mg/0.8 mL Syringe 80 mg SC Q12H Qty: 8 2RF ciprofloxacin HCl [Cipro] 500 mg tablet 500 mg PO Q12H Qty: 20 0RF metronidazole 500 mg tablet 500 mg PO BID Qty: 20 0RF docusate sodium [Colace] 100 mg Capsule 100 mg PO BID PRN (Reason: Abdominal Discomfort) 10 Days Qty: 20 0RF HPI General Mode of arrival: ambulatory . Date/Time Provider Initiated Documentation: 03/27/25 12:00 . Limitations to Documentation: no limitations . Information obtained by: patient, family and old records reviewed . HPI Narrative: This is a 39-year-old female patient with a past medical history most notable for a recent hysterectomy complicated by septic thrombophlebitis, discharged on 03/24 on Lovenox and oral antibiotics, presenting for nausea with vomiting. The patient reports that on Sunday she actually felt quite improved, she began to feel nauseated and had some discomfort. She had improvement in her discomfort today but had an episode of nonbloody vomiting. Last stool was this morning, she still feels generally unwell. Given the vomiting she Charles presented for evaluation. The patient states that she has not had a fever, took her medications just about an hour and a half or 2 hours prior to the episode of vomiting and has been using her Lovenox as prescribed without missing doses. Reports that she does have an abnormal sensation with urination but denies similarity to these sensations to a previous UTI. She has not had typical p.o. intake, had some rice and fruit yesterday. Related Data Home Medications ?Medication ?Instructions ?Recorded ?Confirmed sertraline 50 mg tablet 50 mg PO DAILY #90 tabs 10/2903/27/25 triamcinolone acetonide 0.1 % 1 applic topical BID #30 grams 01/22/25 03/27/25 topical cream Lactobacillus acidophilus 10 100 mmu cells PO DAILY 03/27/25 billion cell capsule (Probacap) acetaminophen 325 mg tablet 650 mg (2 x 325 mg) PO Q6H PRN PRN 03/24/25 03/27/25 #0 tabs ciprofloxacin HCl 500 mg tablet 500 mg PO Q12H #20 tab s 03/24/25 03/27/25 (Cipro) docusate sodium 100 mg capsule 100 mg PO BID PRN Abdom inal 03/24/25 03/27/25 (Colace) Discomfort 10 days #20 caps enoxaparin 80 mg/0.8 mL 80 mg (0.8 mL) SC Q12H #8 mL 03/24/25 03/27/25 subcutaneous syringe metronidazole 500 mg tablet 500 mg PO BID #20 tabs 03/27/25 Previous Rx's ?Medication ?Instructions ?Recorded sertraline 50 mg tablet 50 mg PO DAILY #90 tabs 10/29 05/24 triamcinolone acetonide 0.1 % 1 applic topical BID #30 grams 01/22/25 topical cream acetaminophen 325 mg tablet 650 mg (2 x 325 mg) PO Q6H PRN PRN 03/24/25 #0 tabs ciprofloxacin HCl 500 mg tablet 500 mg PO Q12H #20 tab s 03/24/25 (Cipro) docusate sodium 100 mg capsule 100 mg PO BID PRN Abdom inal 03/24/25 (Colace) Discomfort 10 days #20 caps enoxaparin 80 mg/0.8 mL 80 mg (0.8 mL) SC Q12H #8 mL 03/24/25 subcutaneous syringe metronidazole 500 mg tablet 500 mg PO BID #20 tabs Allergies Allergy/AdvReac Type Severity Reaction Status Date / Time amoxicillin (From Augmentin) Allergy Intermediate Oral Verified 03/27/25 11:56 mucosal pain and redness clavulanic acid (From Allergy Intermediate Oral Verified 03/27/25 11:56 Augmentin) mucosal pain and redness Penicillins Allergy Intermediate swelling Verified 03/27/25 11:56 in mouth Cephalosporins Allergy Unknown Contraindic Verified 03/27/25 11:56 ated dust mites Allergy Intermediate sneezig Uncoded 03/27/25 11:56 itchy eyes General Stated Complaint: 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 CV: Appears well perfused, heart with regular rate and rhythm, strong distal pulses Abdomen: Non-distended, soft, postoperative laparoscopy sites well-approximated, Steri-Strips in place, with no surrounding redness, induration, or warmth. Minimal tenderness to palpation appropriate for her postoperative status, no rigidity, rebound, or guarding MSK: Moves 4 extremities without apparent limitation in ROM. No peripheral edema Skin: Visualized skin without rashes, cyanosis. Neuro: Normal Gait, no obvious focal deficits or facial asymmetry. Speaks in full, clear sentences. Psych: Appropriate for situation. Course Vital Signs Vital signs: Vital Signs Pulse 101 H 03/27/25 11:54 Respiratory Rate 16 03/27/25 11:54 Blood Pressure 137/76 03/27/25 11:54 Pulse Oximetry 98 03/27/25 11:54 Pulse 101 H 03/27/25 11:54 Respiratory Rate 16 03/27/25 11:54 Blood Pressure 137/76 03/27/25 11:54 Pulse Oximetry 98 03/27/25 11:54 Pain Level 0 03/27/25 11:54 Medical Decision Making This is a 39-year-old female patient presenting for evaluation of nausea and vomiting in the setting of a recent hysterectomy complicated by septic thrombophlebitis. My differential includes but is not limited to intra- abdominal abscess, ileus, bowel obstruction, certainly considered sequelae of ongoing infection. Consider metabolic electrolyte derangements, dehydration, kidney injury, liver pathology. Considered anemia, urinary tract infection. I am reassured by the patient's hemodynamic stability, as well as her benign abdominal examination without evidence of peritonitis. We will obtain labs to include CBC, CMP, magnesium, coags, urinalysis. I will obtain a CT of her abdomen and pelvis with contrast to better characterize any abnormalities which might account for the patient's symptoms. I will provide her with a liter of IV fluids and Zofran for initial symptomatic management. - I reviewed the patient's laboratory studies, which show no leukocytosis, and appropriate postoperative anemia that is not worsening, no thrombocytopenia. Chemistry panel reveals no significant electrolyte derangements, but does show a new creatinine elevation to 2.8 without associated BUN elevation, with an estimated GFR of 18.4. The patient also has a bump in her AST to 71 without other liver enzyme abnormalities. Her lipase is low, urinalysis with some hematuria but no infectious findings, consistent with her postoperative vaginal bleeding. CT scan was reviewed by myself and discussed with the radiologist, there is evidence of bilaterally enlarged kidneys with decreased patchy perfusion, which can be seen with bilateral pyelonephritis. There is no evidence of obstructive pathology, postoperatively there is no evidence of bowel obstruction, pelvic abscess, and the pelvic veins are not significantly dilated. I discussed this patient's case with the STATE WILDLIFE OFFICER provider on-call, she could potentially have an AVERY due to nephrotoxic medications received during her initial hospitalization, due to the blood loss during surgery, or due to postoperative nausea and vomiting causing dehydration and poor p.o. intake. The STATE WILDLIFE OFFICER provider will continue to follow along and I reached out to the hospitalist who has graciously accepted this patient for admission for her AVERY. The patient is making urine here in the emergency department and I have a low concern that she will require emergent renal replacement therapy and I do not see an indication to transfer this patient to a nephrology/dialysis capable center at this time. At this time, the patient has had a full medical evaluation and is safe for discharge to home. They are hemodynamically stable, ambulatory, and tolerating PO. They are understanding of the follow-up plan and return precautions. They left our facility without incident. Awilda Whitaker MD [facility] All Active Problems (Updated 03/27/25 @ 14:24 by Awilda Whitaker MD) Nausea & vomiting (Acute) AVERY (acute kidney injury) (Acute) Thrombophlebitis of vein of pelvis (Acute) Postoperative fever (Acute) S/P hysterectomy (Acute) Bone bruise (Acute) Dysphagia, unspecified (Acute) Internal derangement of right knee (Acute 11/20/24) Knee pain, right anterior (Acute) Sinusitis (Acute) Obesity (BMI 30-39.9) (Chronic) Degenerative joint disease (DJD) of lumbar spine (Chronic) MRI 07/2022 Lumbar back pain with radiculopathy affecting lower extremity (Chronic) Long COVID (Chronic) Parosmia (Chronic) Internal hemorrhoids (Chronic) Generalized anxiety disorder (Chronic) Hyperlipidemia (Chronic) Irritable bowel syndrome with constipation and diarrhea (Chronic) Left carpal tunnel syndrome (Chronic) Medical History (Updated 03/27/25 @ 14:24 by Awilda Whitaekr MD) Needle phobia Anesthesia Pt. has significant anesthesia with IV start, would like skilled staff to do it one that is more likely to get it on first try if possible, and would absolutely like MKO prior to IV start! (03/16/25) Family history of thyroid disease COVID-19 virus infection Positive PCR 08/16/20 Surgical History (Updated 03/27/25 @ 14:24 by Awilda Whitaker MD) Hx of wisdom tooth extraction S/P section (11/21/19) LTCS. Breech. [id number]. Malorie. History of repair of anterior cruciate ligament of right knee (03/09/04) S/P colonoscopy (06/25/18) Family History Mother Hyperlipidemia Hypothyroidism Asthma Type 2 diabetes mellitus Hypertension Father Hyperlipidemia Type 2 diabetes mellitus Sister Hyperlipidemia Depression Palindromic rheumatism Suspected Pericarditis Fibromyalgia Son No problems noted. Daughter No problems noted. Paternal Grandfather , in his 60s Myocardial infarction Heart disease Lung cancer Hyperlipidemia Alcohol abuse Paternal Grandmother , at 81 Lung cancer Type 2 diabetes mellitus Maternal Grandfather Alcohol abuse COPD (chronic obstructive pulmonary disease) Depression Heart disease Hyperlipidemia Hypertension Hypothyroidism Maternal Grandmother Colon cancer Social History Smoking/Tobacco Use Status: Never Second Hand Exposure: Yes Smoking risk assessment performed?: Yes Alcohol Intake: never Drug use: Never Substance use type: does not use Adopted: No Caregiver/Support person: No Household members: spouse, children and other Details: 2023. H- Adrian, son Fabian 7 and daughter Lorelei 3.5 Housing: house Number of Children: 2 number of grandchildren: 1 Communication Needs: None Education Level: college Details: 4yrs Do you need help understanding health information?: Rarely current occupation: [employer]. Pets and animals: Yes Pets and animals: cat(s) Sexually active: Yes Do you think of yourself as: straight/heterosexual Current gender identity: female What is your relationship status?: How often do you talk on the phone with friends or family?: three or more times per week How often do you get together with friends or relatives?: three or more times per week How often do you attend worship or church services?: decline to answer Do you belong to any clubs or organized social groups?: yes Panel score (0-1 are the most socially isolated patients): 3 What type of physical activity do you participate in: aerobic, regular exercise, other Details: [place] class, [employer] wilner and yoga Duration: 60-90 minutes/day Frequency: 1-2 times per week Kylee/Latter Day: None Special kylee needs: No Seatbelt use: always Helmet use: Yes Helmet use: always Drive intox or ride w/intox skidder driver: No Working smoke detector in home: Yes Carbon monox detector in home: Yes Firearms in home: Yes Firearms unloaded and locked: Yes Victim of physical abuse: No Victim of emotional abuse: No Victim of sexual abuse: No Would you like helpful sources: No Additional Social history: UTAP Female Reproductive History Menstrual control method: other (Vasectomy) History History 3 Para 2 Hx # Term Pregnancies 2 Multiple births 0 Hx # Pregnancies 0 Ectopic pregnancies 0 AB induced 0 Hx Number of Living Children 1 AB spontaneous 1 Past Pregnancies Del. 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 [facility]. Malorie.
[2025-03-27] MEDS: Lactated Ringers 1,000 ML 1000 ML IV (12:56)
[2025-03-27 12:57] LABS: Abs Immature Grans 0.05 10^3/uL (0.0-0.06); HCT 33.1 % (36.0-46.0); HGB 10.8 g/dL (11.2-15.7); Immature Grans % 0.5 %; MCH 26.5 pg (27.0-33.0); MCHC 32.6 % (32.0-36.0); MCV 81 fL (80-95); MPV 9.2 fL (8.0-11.0); Platelet Count 297 10^3/uL (130-400); RBC 4.07 10^6/uL (3.93-5.22); RDW 12.9 % (11.7-14.6); RDW-SD 38.0 fL; WBC 9.22 10^3/uL (4.4-10.8)
[2025-03-27] MEDS: Ondansetron 4 MG/2 ML VIAL IVP (12:57)
[2025-03-27 13:03] LABS: Glucose Negative (Negative)
[2025-03-27 13:11] LABS: INR 1.1 (0.9-1.1); PTT Activated 37.2 sec (20.6-30.2); Prothrombin Time 11.2 sec (9.1-11.1)
[2025-03-27 13:12] LABS: C & S Indicated? No; Magnesium 2.2 mg/dL (1.6-2.6)
[2025-03-27 13:13] LABS: Lipase 33 U/L (<53)
[2025-03-27 13:15] LABS: ALT 49 U/L (10-49); AST 71 U/L (<34); Albumin 4.6 g/dL (3.2-5.0); Alkaline Phosphatase 83 U/L (46-116); Anion Gap 9.9 mmol/L (3-11); BUN 19 mg/dL (9-23); Bilirubin, Total 0.50 mg/dL (0.2-1.2); CO2 22.1 mmol/L (20.0-31.0); Calcium 8.9 mg/dL (8.3-10.6); Chloride 109 mmol/L (98-107); Glucose 86 mg/dL (74-106); Potassium 4.0 mmol/L (3.5-5.1); Sodium 141 mmol/L (136-145); Total Protein 7.4 g/dL (5.7-8.2)
[2025-03-27] MEDS: Omnipaque 350 MG/ML 100 ML BTL IJ (13:30)
[2025-03-27 15:13] LABS: Anion Gap 8.8 mmol/L (3-11); BUN 18 mg/dL (9-23); CO2 22.2 mmol/L (20.0-31.0); Calcium 8.4 mg/dL (8.3-10.6); Chloride 109 mmol/L (98-107); Glucose 89 mg/dL (74-106); Potassium 4.3 mmol/L (3.5-5.1); Sodium 140 mmol/L (136-145)
--- NOTE | 2025-03-27 15:15 | W.PM.HP.N ---
Date of service: 03/27/25 Time of Service: 15:00 Assessment and Plan Assessment and plan (1) AVERY (acute kidney injury): Status: Acute Assessment and plan: Multiple possible etiologies including dehydration, medications, contrast media Antibiotics at previous discharge less likely to be nephrotoxic Other than creatinine her chemistries are unremarkable UA with protein, consistent with dehydration but BUN is not elevated CT imaging suggestive of hydronephrosis vs pyelonephrosis Will not hold home antibiotics Admit to medsurg Continue IV fluids Strict I/O measurement Repeat UA in the morning (2) Thrombophlebitis of vein of pelvis: Status: Acute Assessment and plan: Preivous hospitalization Continue enoxaparin, renally dosed (3) S/P hysterectomy: Status: Acute Assessment and plan: Continue incision care Ambulate (4) Generalized anxiety disorder: Status: Chronic Assessment and plan: Continue home sertraline History of Present Illness History of Present Illness Chief Complaint: vomiting Narrative: Mita Nogueira is a 39 year old woman presenting March 27 with vomiting. She had laparoscopic hysterectomy and BSO at [facility] March 18 for fibroids and endometriosis, discharged March 20. She returned March 22 and was found to have ovarian vein thrombosis which was determined to be septic. She was treated with ertapenem while hospitalized and discharged Mar 24 on enoxaparin, ciprofloxacin and metronidazole. She took NSAIDs for pain at home. She did not miss any medication doses. On return March 24 she reports having nausea and vomiting soon after arriving home. Some trace hematuria. No fever, no abdominal pain, mild dysuria. No SOB no chest pain. In the ED she was mildly tachycardic HR 101, vitals otherwise unremarkable. CT abdomen/pelvis showed bilaterally enlarged kidneys with decreased perfusion, air in bladder, stable 5 cm right ovarian cyst. No leukocytosis. Hemoglobin 10.8, improved since Mar 24 discharge. Chemistries showing creatinine 2.85 and mildly elevated AST 71. Urine with protein and blood. She was given LR 1L and ondansetron. ObGyn consulted, requesting medical management. PMH includes anxiety and IBS. 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 PFSH All Active Problems (Updated 03/27/25 @ 17:47 by Christie Neely DO) Nausea & vomiting (Acute) AVERY (acute kidney injury) (Acute) Thrombophlebitis of vein of pelvis (Acute) Status post total laparoscopic hysterectomy. 03/18/2025. On Lovenox therapy. Postoperative fever (Acute) S/P hysterectomy (Acute) 03/18/2025. Total laparoscopic hysterectomy with bilateral salpingectomy Bone bruise (Acute) Dysphagia, unspecified (Acute) Internal derangement of right knee (Acute 11/20/24) Knee pain, right anterior (Acute) Sinusitis (Acute) Obesity (BMI 30-39.9) (Chronic) Degenerative joint disease (DJD) of lumbar spine (Chronic) MRI 07/2022 Lumbar back pain with radiculopathy affecting lower extremity (Chronic) Long COVID (Chronic) Parosmia (Chronic) Internal hemorrhoids (Chronic) Generalized anxiety disorder (Chronic) Hyperlipidemia (Chronic) Irritable bowel syndrome with constipation and diarrhea (Chronic) Left carpal tunnel syndrome (Chronic) Medical History (Updated 03/27/25 @ 17:47 by Christie Neely DO) Needle phobia Anesthesia Pt. has significant anesthesia with IV start, would like skilled staff to do it one that is more likely to get it on first try if possible, and would absolutely like MKO prior to IV start! (03/16/25) Family history of thyroid disease COVID-19 virus infection Positive PCR 08/16/20 Surgical History (Updated 03/27/25 @ 17:47 by Christie Neely DO) Hx of wisdom tooth extraction S/P section (11/21/19) LTCS. Breech. [id number]. Malorie. History of repair of anterior cruciate ligament of right knee (03/09/04) S/P colonoscopy (06/25/18) Family History Mother Hyperlipidemia Hypothyroidism Asthma Type 2 diabetes mellitus Hypertension Father Hyperlipidemia Type 2 diabetes mellitus Sister Hyperlipidemia Depression Palindromic rheumatism Suspected Pericarditis Fibromyalgia Son No problems noted. Daughter No problems noted. Paternal Grandfather , in his 60s Myocardial infarction Heart disease Lung cancer Hyperlipidemia Alcohol abuse Paternal Grandmother , at 81 Lung cancer Type 2 diabetes mellitus Maternal Grandfather Alcohol abuse COPD (chronic obstructive pulmonary disease) Depression Heart disease Hyperlipidemia Hypertension Hypothyroidism Maternal Grandmother Colon cancer Social History Smoking/Tobacco Use Status: Never Second Hand Exposure: Yes Smoking risk assessment performed?: Yes Alcohol Intake: never Drug use: Never Substance use type: does not use Adopted: No Caregiver/Support person: No Household members: spouse, children and other Details: 2023. Sathish- Adrian, son Fabian 7 and daughter Lorelei 3.5 Housing: house Number of Children: 2 number of grandchildren: 1 Communication Needs: None Education Level: college Details: 4yrs Do you need help understanding health information?: Rarely current occupation: [employer]. Pets and animals: Yes Pets and animals: cat(s) Sexually active: Yes Do you think of yourself as: straight/heterosexual Current gender identity: female What is your relationship status?: How often do you talk on the phone with friends or family?: three or more times per week How often do you get together with friends or relatives?: three or more times per week How often do you attend jewish or sabianist services?: decline to answer Do you belong to any clubs or organized social groups?: yes Panel score (0-1 are the most socially isolated patients): 3 What type of physical activity do you participate in: aerobic, regular exercise, other Details: [place] class, [employer] wilner and yoga Duration: 60-90 minutes/day Frequency: 1-2 times per week Kylee/Mormonism: None Special kylee needs: No Seatbelt use: always Helmet use: Yes Helmet use: always Drive intox or ride w/intox 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 Breech. Unsuccessful ECV. Malorie. Meds Allergies and Home Medications Allergies Allergy/AdvReac Type Severity Reaction Status Date / Time amoxicillin (From Augmentin) Allergy Intermediate Oral Verified 03/27/25 11:56 mucosal pain and redness clavulanic acid (From Allergy Intermediate Oral Verified 03/27/25 11:56 Augmentin) mucosal pain and redness Penicillins Allergy Intermediate swelling Verified 03/27/25 11:56 in mouth Cephalosporins Allergy Unknown Contraindic Verified 03/27/25 11:56 ated dust mites Allergy Intermediate sneezig Uncoded 03/27/25 11:56 itchy eyes Home Medications ?Medication ?Instructions ?Recorded ?Confirmed ?Type sertraline 50 mg tablet 50 mg PO DAILY #90 tabs 11/17/24 03/27/25 Rx triamcinolone acetonide 0.1 % 1 applic topical BID #30 grams 01/22/25 03/27/25 Rx topical cream Lactobacillus acidophilus 10 100 mmu cells PO DAILY 03/16/25 03/27/25 History billion cell capsule (Probacap) acetaminophen 325 mg tablet 650 mg (2 x 325 mg) PO Q6H PRN PRN 03/24/25 03/27/25 Rx #0 tabs ciprofloxacin HCl 500 mg tablet 500 mg PO Q12H #20 tabs 03/24/25 03/27/25 Rx (Cipro) docusate sodium 100 mg capsule 100 mg PO BID PRN Abdominal 03/24/25 03/27/25 Rx (Colace) Discomfort 10 days #20 caps enoxaparin 80 mg/0.8 mL 80 mg (0.8 mL) SC Q12H #8 mL 03/24/25 03/27/25 Rx subcutaneous syringe metronidazole 500 mg tablet 500 mg PO BID #20 tabs 03/24/25 03/27/25 Rx Exam Narrative Exam Narrative: General: This is a pleasant woman in no distress HEENT: Normocephalic, atraumatic CV: RRR Resp: CTAB Abd: soft, NTND. Laparoscopic incision sites c/d/i. MSK: voluntary motion x4 Neuro: awake, alert, no focal deficits Results Labs 03/27/25 12:49 03/27/25 14:53 Labs: Laboratory Results - last 24 hr 03/27/25 03/27/25 12:49 14:53 WBC 9.22 RBC 4.07 Hgb 10.8 L Hct 33.1 L MCV 81 MCH 26.5 L MCHC 32.6 RDW 12.9 Plt Count 297 MPV 9.2 Immature Gran % 0.5 Neutrophils % 76.1 Lymphocytes % 12.3 Monocytes % 6.5 Eosinophils % 4.4 Basophils % 0.2 Nucleated RBC % 0.0 Absolute Neutrophils 7.01 H Absolute Lymphocytes 1.13 L Absolute Monocytes 0.60 Absolute Eosinophils 0.41 Absolute Basophils 0.02 PT 11.2 H INR 1.1 APTT 37.2 H Sodium 141 140 Potassium 4.0 4.3 Chloride 109 H 109 H Carbon Dioxide 22.1 22.2 Anion Gap 9.9 8.8 BUN 19 18 Creatinine 2.85 H 2.82 H Est GFR (CKD-EPI 2020) 18.48 18.71 Glucose 86 89 Calcium 8.9 8.4 Magnesium 2.2 Total Bilirubin 0.50 AST 71 H ALT 49 Alkaline Phosphatase 83 Total Protein 7.4 Albumin 4.6 Lipase 33 Urine Color Yellow Urine Clarity Clear Urine pH 5.5 Ur Specific [place] 1.010 Urine Protein 30 H Urine Ketones Negative Urine Blood Moderate H Urine Nitrite Negative Urine Bilirubin Negative Urine Urobilinogen 0.2 Ur Leukocyte Esterase Trace H Urine RBC 3-5 H Urine WBC 5-10 Ur Epithelial Cells Few Urine Crystals Negative Urine Bacteria Few Urine Casts Negative Urine Mucus Negative Ur Culture Indicated? No Urine Glucose Negative Last Vital Signs Pulse 72 03/27/25 15:00 Resp 16 03/27/25 11:54 BP 134/79 03/27/25 15:00 Pulse Ox 99 03/27/25 15:00 VTE Prohylaxis Risk Level: Moderate/High Risk Contraindications: None Prophylaxis: Patient anticoagulated Time Spent Time spent with Patient: 40-54 minutes Time was spent: preparing to see the patient(eg.review tests), obtaining and/or reviewing separately otained hiistory, ordering medications,tests, procedures, referring, communicating with other health career and technology education teacher, indepentently interpreting results, counseling the patient and care coordination
--- NOTE | 2025-03-27 16:35 | W.PC.ACHO ---
Registration Status: ADM NAYA Primary Language: Preferred Language: Brazilian ED Information & Data Chief Complaint [employer] 03/27/25 12:46 Triage Note hysterectomy leading to 03/27/25 11:54 blood clot. pt on 2 abd and lovonox. reports slow improvement but yesterday became more nauseous and had pain. today pain is gone, nausea still there w/ vomiting Medical / Surgical History (Last Updated 03/23/25 @ 20:13 by Julee Potts MD) Needle phobia Anesthesia Family history of thyroid disease COVID-19 virus infection (Last Reviewed 03/22/25 @ 23:34 by Amanda Brady DO) Hx of wisdom tooth extraction S/P section (11/21/19) History of repair of anterior cruciate ligament of right knee (03/09/04) S/P colonoscopy (06/25/18) Most Recent Vital Signs Temperature 37.1 C 03/27/25 15:56 Pulse 84 03/27/25 15:56 Pulse Rhythm Regular 03/27/25 15:56 Respiratory Rate 16 03/27/25 15:56 Respiratory Effort Normal 03/27/25 15:56 Respiratory Depth Normal 03/27/25 15:56 Respiratory Pattern Normal 03/27/25 15:56 Blood Pressure 121/71 03/27/25 15:56 Blood Pressure Mean 93 03/27/25 15:46 Pulse Oximetry 100 03/27/25 15:56 Oxygen Delivery Method Room Air 03/27/25 15:56 Oxygen Flow Rate 0 03/27/25 15:56 Pain Level 0 03/27/25 15:56 Allergies amoxicillin (From Augmentin) Allergy (Intermediate, Verified 03/27/25 11:56) Oral mucosal pain and redness [place] [facility] [place], concerned her reaction may be early signs of severe cutaneous Type IV reaction, recommend not trying any other PCNs or cephalosporins but if cephalosporins absolutely necessary, try higher generations clavulanic acid (From Augmentin) Allergy (Intermediate, Verified 03/27/25 11:56) Oral mucosal pain and redness Penicillins Allergy (Intermediate, Verified 03/27/25 11:56) swelling in mouth Testing confirmed, not to take any cillins Cephalosporins Allergy (Unknown, Verified 03/27/25 11:56) Contraindicated Pt. Had allergy testing and was advised to avoid cephalosporins, but is not allergic dust mites Allergy (Intermediate, Uncoded 03/27/25 11:56) sneezig itchy eyes Precautions Isolation Standard precaution 03/27/25 12:33 IV IV Catheter Type [Left Saline Lock Antecubital] IV Catheter Gauge [Left 20 Antecubital] Diet Orders Category Date Time Status Regular/Normal [DIET] Nutrition 03/27/25 Dinner Active Diagnostics 03/27/25 03/27/25 Range/Units 14:53 12:49 WBC 9.22 (4.4-10.8) 10^3/uL RBC 4.07 (3.93-5.22) 10^6/uL Hgb 10.8 L (11.2-15.7) g/dL Hct 33.1 L (36.0-46.0) % MCV 81 (80-95) fL MCH 26.5 L (27.0-33.0) pg MCHC 32.6 (32.0-36.0) % RDW 12.9 (11.7-14.6) % Plt Count 297 (130-400) 10^3/uL MPV 9.2 (8.0-11.0) fL Immature Gran % 0.5 % Neutrophils % 76.1 % Lymphocytes % 12.3 % Monocytes % 6.5 % Eosinophils % 4.4 % Basophils % 0.2 % Nucleated RBC % 0.0 (0.0-0.3) % Absolute Neutrophils 7.01 H (1.2-6.7) 10^3/uL Absolute Lymphocytes 1.13 L (1.2-3.4) 10^3/uL Absolute Monocytes 0.60 (0.1-0.8) 10^3/uL Absolute Eosinophils 0.41 (0.0-0.7) 10^3/uL Absolute Basophils 0.02 (0.0-0.2) 10^3/uL PT 11.2 H (9.1-11.1) sec INR 1.1 (0.9-1.1) APTT 37.2 H (20.6-30.2) sec Sodium 140 141 (136-145) mmol/L Potassium 4.3 4.0 (3.5-5.1) mmol/L Chloride 109 H 109 H (98-107) mmol/L Carbon Dioxide 22.2 22.1 (20.0-31.0) mmol/L Anion Gap 8.8 9.9 (3-11) mmol/L BUN 18 19 (9-23) mg/dL Creatinine 2.82 H 2.85 H (0.55-1.02) mg/dL Est GFR (CKD-EPI 2020) 18.71 18.48 (mL/min/1.73m2) Glucose 89 86 (74-106) mg/dL Calcium 8.4 8.9 (8.3-10.6) mg/dL Magnesium 2.2 (1.6-2.6) mg/dL Total Bilirubin 0.50 (0.2-1.2) mg/dL AST 71 H (<34) U/L ALT 49 (10-49) U/L Alkaline Phosphatase 83 (46-116) U/L Total Protein 7.4 (5.7-8.2) g/dL Albumin 4.6 (3.2-5.0) g/dL Lipase 33 (<53) U/L Urine Color Yellow (Yellow) Urine Clarity Clear (Clear) Urine pH 5.5 (5-8) Ur Specific [place] 1.010 (1.005-1.025) Urine Protein 30 H (Neg-Trace) mg/dL Urine Ketones Negative (Negative) mg/dL Urine Blood Moderate H (Negative) Urine Nitrite Negative (Negative) Urine Bilirubin Negative (Negative) Urine Urobilinogen 0.2 (Up to 0.2) mg/dL Ur Leukocyte Esterase Trace H (Negative) Urine RBC 3-5 H (0-2) HPF Urine WBC 5-10 (0-5) HPF Ur Epithelial Cells Few (Negative) HPF Urine Crystals Negative (Negative) HPF Urine Bacteria Few (Negative) HPF Urine Casts Negative (Negative) LPF Urine Mucus Negative (Negative) Ur Culture Indicated? No Urine Glucose Negative (Negative) mg/dL Intake and Output - 24 Hour Total 03/27/25 11:49 thru 03/27/25 15:00 Intake Total 1010 Output Total 450 Balance 560 Weight 79.379 kg Intake: IV 1010 Output: Urine 450 Other: # Voids 1 Falls Risk Assessment History of Falls No History 03/27/25 15:56 Contributing Factors No Factors 03/27/25 12:33 Ambulatory Aids Independent 03/27/25 15:56 Tubes/Lines None 03/27/25 15:56 Gait Evaluation No gait disturbance 03/27/25 15:56 Cognition No cognitive impairment 03/27/25 15:56 Fall Total Score 0 03/27/25 15:56 Level of Risk Standard/Low Risk 03/27/25 15:56 Attestation Statement: By documenting the first initial, last name, and credentials of the reporting nurse below, both parties acknowledge that all relevant information regarding the patient handoff has been communicated, and that all questions have been addressed to ensure continuity and safety of care. Additional Patient Information/Comments: Pt s/p hysterectomy, AVERY, Thrombus in pelvis, received 1L LR in ED, vitals stable, alert, oriented, ambulatory. Report Received From: EDWIN Franz
--- NOTE | 2025-03-27 17:38 | GCONE_ITS ---
Date of service: 03/27/25 Time of Service: 17:38 Assessment and Plan Assessment and plan (1) S/P hysterectomy: Status: Acute Assessment and plan: Patient is status post total laparoscopic hysterectomy day #9. Surgical procedure complicated by readmission for postoperative fever and found to have septic pelvic thrombophlebitis. Second readmission today with nausea and vomiting, and evidence of acute kidney injury. Current management per medicine service. From a surgical standpoint, incisions are healing well. No intra- abdominal or intrapelvic pathology noted consistent with ongoing surgical complexity or pelvic abscess. (2) Dysphagia, unspecified: Status: Acute (3) AVERY (acute kidney injury): Status: Acute History of Present Illness History of Present Illness Chief Complaint: Postoperative nausea and vomiting, acute kidney injury Narrative: Patient is a 39-year-old female who 03/18/2025 underwent a total laparoscopic hysterectomy with bilateral salpingectomy and cystoscopy. Subsequent to her procedure, she was readmitted to the hospital with a postoperative fever. Readmission was postoperative day 4. At that time, with thorough evaluation she was noted to have a septic pelvic thrombophlebitis for which she she received anticoagulation with Lovenox, and broad-spectrum antibiotic coverage. She was discharged to home on 03/24/2025. At that time she was receiving her Lovenox therapy, along with Flagyl and Cipro. She had been doing well at home until yesterday when she developed some nausea. She has been afebrile. She is taking a small amount of pain medication which include Tylenol and nonsteroidals. She phoned to Dr. Potts today with an episode of vomiting. She was appropriately sent to the emergency department for further evaluation. During evaluation today, she had laboratory studies, and imaging. CT of the abdomen and pelvis were reviewed which reveal bilaterally enlarged kidneys with decreased perfusion which could not exclude a pyelonephritis. There is no evidence of intra-abdominal or pelvic abscess. Her laboratory studies reviewed showing a white count that is normal at 9.2 hemoglobin stable to improved at 10.8 with a normal platelet count. As of note, she does have what appears to be acute kidney injury with a creatinine, previously normal at 0.74, now elevated to 2.82. She also has a mild elevation in her liver enzymes with an AST of 71 ALT high end of normal at 49. Alkaline phosphatase is otherwise normal. In light of these findings, she is admitted to the hospitalist service for management of her acute kidney injury. She was seen by me ferris. Clinically, she looks well. Her course to this point was reviewed with her. Most likely etiology is multifactorial with prolonged surgery, medication exposure including nonsteroidal anti-inflammatory medications, and antibiotics, and potential hypoperfusion during periods of time of hypotension and/or dehydration. We appreciate hospitalist input and management of this patient. Review of Systems All systems reviewed & are unremarkable except as noted in HPI and below Eyes Eyes: Reports as per HPI and Reports system reviewed and no additional complaints, except as documented ENT Ears, Nose, Mouth, and Throat: Reports system reviewed and no additional complaints, except as documented and Reports as per HPI Cardiovascular Cardiovascular: Reports system reviewed and no additional complaints, except as documented, Denies chest pain and Denies irregular heart rhythm Respiratory Respiratory: Reports system reviewed and no additional complaints, except as documented, Denies chest congestion and Denies cough Gastrointestinal Gastrointestinal: Reports system reviewed and no additional complaints, except as documented Genitourinary Genitourinary: Reports system reviewed and no additional complaints, except as documented Neurologic Neurologic: Reports system reviewed and no additional complaints, except as documented PFSH All Active Problems (Updated 03/27/25 @ 17:47 by Christie Neely DO) Nausea & vomiting (Acute) AVERY (acute kidney injury) (Acute) Thrombophlebitis of vein of pelvis (Acute) Status post total laparoscopic hysterectomy. 03/18/2025. On Lovenox therapy. Postoperative fever (Acute) S/P hysterectomy (Acute) 03/18/2025. Total laparoscopic hysterectomy with bilateral salpingectomy Bone bruise (Acute) Dysphagia, unspecified (Acute) Internal derangement of right knee (Acute 11/20/24) Knee pain, right anterior (Acute) Sinusitis (Acute) Obesity (BMI 30-39.9) (Chronic) Degenerative joint disease (DJD) of lumbar spine (Chronic) MRI 07/2022 Lumbar back pain with radiculopathy affecting lower extremity (Chronic) Long COVID (Chronic) Parosmia (Chronic) Internal hemorrhoids (Chronic) Generalized anxiety disorder (Chronic) Hyperlipidemia (Chronic) Irritable bowel syndrome with constipation and diarrhea (Chronic) Left carpal tunnel syndrome (Chronic) Medical History (Updated 03/27/25 @ 17:47 by Christie Neely DO) Needle phobia Anesthesia Pt. has significant anesthesia with IV start, would like skilled staff to do it one that is more likely to get it on first try if possible, and would absolutely like MKO prior to IV start! (03/16/25) Family history of thyroid disease COVID-19 virus infection Positive PCR 08/16/20 Surgical History (Updated 03/27/25 @ 17:47 by Christie Neely DO) Hx of wisdom tooth extraction S/P section (11/21/19) LTCS. Breech. [id number]. Malorie. History of repair of anterior cruciate ligament of right knee (03/09/04) S/P colonoscopy (06/25/18) Family History Mother Hyperlipidemia Hypothyroidism Asthma Type 2 diabetes mellitus Hypertension Father Hyperlipidemia Type 2 diabetes mellitus Sister Hyperlipidemia Depression Palindromic rheumatism Suspected Pericarditis Fibromyalgia Son No problems noted. Daughter No problems noted. Paternal Grandfather , in his 60s Myocardial infarction Heart disease Lung cancer Hyperlipidemia Alcohol abuse Paternal Grandmother , at 81 Lung cancer Type 2 diabetes mellitus Maternal Grandfather Alcohol abuse COPD (chronic obstructive pulmonary disease) Depression Heart disease Hyperlipidemia Hypertension Hypothyroidism Maternal Grandmother Colon cancer Social History Smoking/Tobacco Use Status: Never Second Hand Exposure: Yes Smoking risk assessment performed?: Yes Alcohol Intake: never Drug use: Never Substance use type: does not use Adopted: No Caregiver/Support person: No Household members: spouse, children and other Details: 2023. H- Adrian, son Fabian 7 and daughter Lorelei 3.5 Housing: house Number of Children: 2 number of grandchildren: 1 Communication Needs: None Education Level: college Details: 4yrs Do you need help understanding health information?: Rarely current occupation: [employer]. [employer]. Pets and animals: Yes Pets and animals: cat(s) Sexually active: Yes Do you think of yourself as: straight/heterosexual Current gender identity: female What is your relationship status?: How often do you talk on the phone with friends or family?: three or more times per week How often do you get together with friends or relatives?: three or more times per week How often do you attend religious or jehovah's witness services?: decline to answer Do you belong to any clubs or organized social groups?: yes Panel score (0-1 are the most socially isolated patients): 3 What type of physical activity do you participate in: aerobic, regular exercise, other Details: [employer] class, [employer] wilner and yoga Duration: 60-90 minutes/day Frequency: 1-2 times per week Kylee/Worship: None Special kylee needs: No Seatbelt use: always Helmet use: Yes Helmet use: always Drive intox or ride w/intox charter driver: No Working smoke detector in home: Yes Carbon monox detector in home: Yes Firearms in home: Yes Firearms unloaded and locked: Yes Victim of physical abuse: No Victim of emotional abuse: No Victim of sexual abuse: No Would you like helpful sources: No Additional Social history: UTAP Female Reproductive History Menstrual control method: other (Vasectomy) History History 2 3 Para 2 Hx # Term Pregnancies 2 Multiple births 0 Hx # Pregnancies 0 Ectopic pregnancies 0 AB induced 0 Hx Number of Living Children 1 AB spontaneous 1 Past Pregnancies Del. Date GA/Weeks # Preg Succ Route Wgt Sex Labor Lgth Anesth esia Location [facility] 08/14/16 38 No vaginal 6 lb 2 oz Male 8 hrs [facility] [place] [facility]) 01/08/19 11/21/19 38 No 7 lb 1 oz Female Nader Neely Delivery Date: 08/14/16 Last Updated by: Lorene Marcelino SROM at home, spont labor, no complications Delivery Date: 01/08/19 Last Updated by: Lorene Marcelino SAB, had unsatisfactory experience with staff, didn't feel well treated Delivery Date: 11/21/19 Last Updated by: Juli Stone M.D. Brejennifer. Unsuccessful ECV. Malorie. Exam Narrative Exam Narrative: In general patient appears alert and oriented and in no acute distress. Const General: cooperative, healthy appearing, comfortable and no acute distress Nutritional Appearance: average body habitus HENMT Head: normal to inspection Eyes General: appearance normal, both eyes and all related structures Neck Neck: normal visual inspection and supple Resp Effort & Inspection: normal respiratory effort, no audible wheezes and no cough Cardio Rate: regular rate Rhythm: regular rhythm GI Inspection: normal to inspection Palpation: soft, not firm and no guarding Other: Incision are dressed, Steri-Strips in place. Mild amount of surrounding ecchymosis with no erythema. Skin General skin exam: no rashes or lesions noted Results Last Vital Signs Temp 98.8 F 03/27/25 15:56 Pulse 84 03/27/25 15:56 Resp 16 03/27/25 15:56 BP 121/71 03/27/25 15:56 Pulse Ox 100 03/27/25 15:56 Labs 03/27/25 12:49 03/27/25 14:53 Labs: Laboratory Results - last 24 hr 03/27/25 03/27/25 12:49 14:53 WBC 9.22 RBC 4.07 Hgb 10.8 L Hct 33.1 L MCV 81 MCH 26.5 L MCHC 32.6 RDW 12.9 Plt Count 297 MPV 9.2 Immature Gran % 0.5 Neutrophils % 76.1 Lymphocytes % 12.3 Monocytes % 6.5 Eosinophils % 4.4 Basophils % 0.2 Nucleated RBC % 0.0 Absolute Neutrophils 7.01 H Absolute Lymphocytes 1.13 L Absolute Monocytes 0.60 Absolute Eosinophils 0.41 Absolute Basophils 0.02 PT 11.2 H INR 1.1 APTT 37.2 H Sodium 141 140 Potassium 4.0 4.3 Chloride 109 H 109 H Carbon Dioxide 22.1 22.2 Anion Gap 9.9 8.8 BUN 19 18 Creatinine 2.85 H 2.82 H Est GFR (CKD-EPI 2020) 18.48 18.71 Glucose 86 89 Calcium 8.9 8.4 Magnesium 2.2 Total Bilirubin 0.50 AST 71 H ALT 49 Alkaline Phosphatase 83 Total Protein 7.4 Albumin 4.6 Lipase 33 Urine Color Yellow Urine Clarity Clear Urine pH 5.5 Ur Specific [place] 1.010 Urine Protein 30 H Urine Ketones Negative Urine Blood Moderate H Urine Nitrite Negative Urine Bilirubin Negative Urine Urobilinogen 0.2 Ur Leukocyte Esterase Trace H Urine RBC 3-5 H Urine WBC 5-10 Ur Epithelial Cells Few Urine Crystals Negative Urine Bacteria Few Urine Casts Negative Urine Mucus Negative Ur Culture Indicated? No Urine Glucose Negative
[2025-03-27] MEDS: Prochlorperazine 10 MG/2 ML VIAL IVP (21:35)
[2025-03-27] MEDS: Lactated Ringers 1,000 ML 125 ML IV (21:35)
[2025-03-27] MEDS: Ciprofloxacin 500 MG TAB PO (21:35)
[2025-03-27] MEDS: metroNIDAZOLE 500 MG TAB PO (21:35)
[2025-03-27] MEDS: Normal Saline Flush 10 ML SYR IVP (21:50)
[2025-03-28] MEDS: Prochlorperazine 10 MG/2 ML VIAL IVP (02:03)
[2025-03-28] MEDS: Lactated Ringers 1,000 ML 125 ML IV (05:40)
[2025-03-28 07:20] LABS: Albumin 3.9 g/dL (3.2-5.0); Anion Gap 10.1 mmol/L (3-11); BUN 14 mg/dL (9-23); CO2 22.9 mmol/L (20.0-31.0); Calcium 8.4 mg/dL (8.3-10.6); Chloride 112 mmol/L (98-107); Glucose 116 mg/dL (74-106); Potassium 4.5 mmol/L (3.5-5.1); Sodium 145 mmol/L (136-145)
[2025-03-28 08:34] VITALS: BP 117/60; PULSE 84; RESP 16; TEMP 36.5; O2SAT 98
[2025-03-28] MEDS: Enoxaparin 80 MG/0.8 ML SYR SC (08:50)
[2025-03-28] MEDS: SODIUM CHLORIDE 0.45% 1,000 ML 125 ML IV (08:50)
[2025-03-28] MEDS: Lactobacillus Acidophilus CAP 1 CAP PO (08:50)
[2025-03-28] MEDS: Sertraline 50 MG TAB PO (08:50)
--- NOTE | 2025-03-28 09:08 | PGE_ITS ---
Date of Service Date of service: 03/28/25 Time of Service: 09:10 Assessment and Plan Assessment and plan (1) S/P hysterectomy: Status: Acute Assessment and plan: Patient is 10 days status post total laparoscopic hysterectomy. She is healing well from this aspect. Her abdominal incisions are healing. She does have some slight ecchymosis without erythema. Steri-Strips are in place. (2) Thrombophlebitis of vein of pelvis: Status: Acute Assessment and plan: Postoperative complication of septic pelvic thrombophlebitis. Patient currently anticoagulated with Lovenox, and on antibiotics with appropriate adjustment based on her renal function. (3) AVERY (acute kidney injury): Status: Acute Assessment and plan: Medical management per hospitalist service. Improvement in her renal function. No systemic effects. Patient has no swelling or chest pain or shortness of breath. Awaiting repeat laboratory studies this afternoon for possible discharge home. Subjective Subjective Interval history since last seen: Patient seen and examined this morning. Overall feeling well. She states she had a rough night with some frustrations regarding her medication administration. We discussed this morning, that it is necessary to evaluate and reassess medications based on her current kidney function. Physically she looks well. She has no pain. She is having no vaginal bleeding. She is having no shortness of breath, chest pain, or lower extremity edema. Exam Const General: cooperative, healthy appearing, comfortable, no acute distress, well developed and well groomed [facility] Head: normal to inspection Eyes General: appearance normal, both eyes and all related structures Neck Neck: normal visual inspection, supple, no anterior neck swelling and nontender Resp Effort & Inspection: normal respiratory effort, no audible wheezes and no cough Cardio Rate: regular rate Rhythm: regular rhythm Skin General skin exam: no rashes or lesions noted Extrem General: normal to inspection, no clubbing, cyanosis or edema and no calf tenderness bilaterally Psych Appearance: grossly normal Mental Status: mental status grossly normal Speech and Movement: speech and movement normal Mood: congruent mood Insight: insight good Judgment: judgment good Objective Last Vital Signs Temp 97.7 F 03/28/25 08:34 Pulse 84 03/28/25 08:34 Resp 16 03/28/25 08:34 BP 117/60 03/28/25 08:34 Pulse Ox 98 03/28/25 08:34 Laboratory Results - last 24 hr 11/03/27/25 03/28/25 12:49 14:53 06:20 WBC 9.22 RBC 4.07 Hgb 10.8 L Hct 33.1 L MCV 81 MCH 26.5 L MCHC 32.6 RDW 12.9 Plt Count 297 MPV 9.2 Immature Gran % 0.5 Neutrophils % 76.1 Lymphocytes % 12.3 Monocytes % 6.5 Eosinophils % 4.4 Basophils % 0.2 Nucleated RBC % 0.0 Absolute Neutrophils 7.01 H Absolute Lymphocytes 1.13 L Absolute Monocytes 0.60 Absolute Eosinophils 0.41 Absolute Basophils 0.02 PT 11.2 H INR 1.1 APTT 37.2 H Sodium 141 140 145 Potassium 4.0 4.3 4.5 Chloride 109 H 109 H 112 H Carbon Dioxide 22.1 22.2 22.9 Anion Gap 9.9 8.8 10.1 BUN 19 18 14 Creatinine 2.85 H 2.82 H 2.27 H Est GFR (CKD-EPI 2020) 18.48 18.71 24.03 Glucose 86 89 116 H Calcium 8.9 8.4 8.4 Phosphorus 3.9 Magnesium 2.2 Total Bilirubin 0.50 AST 71 H ALT 49 Alkaline Phosphatase 83 Total Protein 7.4 Albumin 4.6 3.9 Lipase 33 Urine Color Yellow Urine Clarity Clear Urine pH 5.5 Ur Specific [place] 1.010 Urine Protein 30 H Urine Ketones Negative Urine Blood Moderate H Urine Nitrite Negative Urine Bilirubin Negative Urine Urobilinogen 0.2 Ur Leukocyte Esterase Trace H Urine RBC 3-5 H Urine WBC 5-10 Ur Epithelial Cells Few Urine Crystals Negative Urine Bacteria Few Urine Casts Negative Urine Mucus Negative Ur Culture Indicated? No Urine Glucose Negative VTE Prohylaxis Risk Level: Moderate/High Risk Contraindications: None Prophylaxis: Patient anticoagulated Time Spent with Patient Time Spent with Patient: 25-34 minutes Time was spent: preparing to see the patient(eg.review tests), obtaining and/or reviewing separately otained hiistory, referring, communicating with other health home care provider, indepentently interpreting results and counseling the patient
[2025-03-28] MEDS: Ciprofloxacin 500 MG TAB PO (09:28)
[2025-03-28] MEDS: metroNIDAZOLE 500 MG TAB PO (09:28)
[2025-03-28] MEDS: Normal Saline Flush 10 ML SYR IVP (09:44)
--- NOTE | 2025-03-28 10:01 | INITIAL_ITS ---
Date of service: 03/28/25 Time of Service: 10:01 Care Management Initial Assmt Initial Assessment Reason for Hospitalization: AVERY Functional Status/Living Situation Patient Presentation: Mita presented to the ED yesterday afternoon with c/o vomiting. She is 10 days status post total laparoscopic hysterectomy, and per Gynecology, she is healing well from that standpoint. Mita was admitted on 03/22 withan ovarian vein thrombosis, which was determined to be septic. She was discharged on 03/24 on enoxaparin, ciprofloxacin and metronidazole. She stated that she took her meds as ordered, and also took NSAIDS for pain. She reported having n/v soom after arriving home. On arrival to ED, her creatinine was noted to be 2.85, and she was mildly tacchycardic. She was admitted for IVF, monitoring of her labs, nausea control. Mita was feeling a lot better when CM met with her this afternoon. She had just had labs drawn, and if improved, she was going to be discharged. Mita's creatinine did improve, and she was discharged home. She has a f/u with her assignment editor this week, and will have labs done just prior to that for review at that appointment. 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 Care Team Visit Care Team Role Provider Type Mikayla Crow NP Primary Care Provider NURSE PRACTITIONER Awilda Whitaker MD Emergency Provider [facility] STAFF PHYSICIAN Joseph Oswald MD Admit Provider [facility] STAFF PHYSICIAN Attending Provider Discharge Potential Discharge Needs: PCP F/U Appt and Other (gynecology f/u and labs prior to that appt.) Anticipated Barriers to Discharge: None Identified (discharge today) Patient/Family Education Needs: Review discharge instructions, discuss Ask Me Three Transportation: Private vehicle Plan: Mita was discharged home this afternoon with no new services. She will f/u with her assignment editor and her PCP and continue per her plan of care. Mita was tranpsorted home by her . Social Determinants of Health Screening Social Determinants of health last assessed in clinic: 03/28/25 Will the Patient Participate in the Screening?: Yes Do you worry about having a steady place to live?: no Problems where you live: no known problems In the past 12 months, have you had to go without electric, gas, oil or water in your home?: no 1. Within the past 12 months, we worried whether our food would run out before we got money to buy more.: Don't know/refused 2. Within the past 12 months, the food we bought just didn't last and we didn't have money to get more.: Don't know/refused Has lack of transportation kept you from medical appointments or from doing things needed for daily living?: no Has anyone in your life made you feel unsafe or unsupported?: no How hard is it for you to pay for the very basics like food, housing, medical care, and heating? Would you say it is:: Not hard at all Do you want help finding or keeping work or a job?: I do not need or want help If for any reason you need help with day-to-day activities such as bathing, preparing meals, shopping, managing finances, etc., do you get the help you need?: I don?t need any help How often do you feel lonely or isolated from those around you?: Never Do you speak a language other than Malaysian at home?: Yes Does the patient want assistance with any of the above?: Yes Health Related Social Needs Health related social needs: education (Z55.6) PFSH All Active Problems (Updated 03/27/25 @ 17:47 by Christie Neely DO) Nausea & vomiting (Acute) AVERY (acute kidney injury) (Acute) Thrombophlebitis of vein of pelvis (Acute) Status post total laparoscopic hysterectomy. 03/18/2025. On Lovenox therapy. Postoperative fever (Acute) S/P hysterectomy (Acute) 03/18/2025. Total laparoscopic hysterectomy with bilateral salpingectomy Bone bruise (Acute) Dysphagia, unspecified (Acute) Internal derangement of right knee (Acute 11/20/24) Knee pain, right anterior (Acute) Sinusitis (Acute) Obesity (BMI 30-39.9) (Chronic) Degenerative joint disease (DJD) of lumbar spine (Chronic) MRI 07/2022 Lumbar back pain with radiculopathy affecting lower extremity (Chronic) Long COVID (Chronic) Parosmia (Chronic) Internal hemorrhoids (Chronic) Generalized anxiety disorder (Chronic) Hyperlipidemia (Chronic) Irritable bowel syndrome with constipation and diarrhea (Chronic) Left carpal tunnel syndrome (Chronic) Medical History (Updated 03/27/25 @ 17:47 by Christie Neely DO) Needle phobia Anesthesia Pt. has significant anesthesia with IV start, would like skilled staff to do it one that is more likely to get it on first try if possible, and would absolutely like MKO prior to IV start! (03/16/25) Family history of thyroid disease COVID-19 virus infection Positive PCR 08/16/20 Surgical History (Updated 03/27/25 @ 17:47 by Christie Neely DO) Hx of wisdom tooth extraction S/P section (11/21/19) LTCS. Breech. [id number]. Malorie. History of repair of anterior cruciate ligament of right knee (03/09/04) S/P colonoscopy (06/25/18) Family History Mother Hyperlipidemia Hypothyroidism Asthma Type 2 diabetes mellitus Hypertension Father Hyperlipidemia Type 2 diabetes mellitus Sister Hyperlipidemia Depression Palindromic rheumatism Suspected Pericarditis Fibromyalgia Son No problems noted. Daughter No problems noted. Paternal Grandfather , in his 60s Myocardial infarction Heart disease Lung cancer Hyperlipidemia Alcohol abuse Paternal Grandmother , at 81 Lung cancer Type 2 diabetes mellitus Maternal Grandfather Alcohol abuse COPD (chronic obstructive pulmonary disease) Depression Heart disease Hyperlipidemia Hypertension Hypothyroidism Maternal Grandmother Colon cancer Social History Smoking/Tobacco Use Status: Never Second Hand Exposure: Yes Smoking risk assessment performed?: Yes Alcohol Intake: never Drug use: Never Substance use type: does not use Adopted: No Caregiver/Support person: No Household members: spouse, children and other Details: 2023. 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 Pets and animals: Yes Pets and animals: cat(s) Sexually active: Yes Do you think of yourself as: straight/heterosexual Current gender identity: female What is your relationship status?: How often do you talk on the phone with friends or family?: three or more times per week How often do you get together with friends or relatives?: three or more times per week How often do you attend jewish or episcopalian services?: decline to answer Do you belong to any clubs or organized social groups?: yes Panel score (0-1 are the most socially isolated patients): 3 What type of physical activity do you participate in: aerobic, regular exercise, other Details: [employer] class, wourkout wilner and yoga Duration: 60-90 minutes/day Frequency: 1-2 times per week Kylee/Buddhism: None Special kylee needs: No Seatbelt use: always Helmet use: Yes Helmet use: always Drive intox or ride w/intox parts driver: No Working smoke detector in home: Yes Carbon monox detector in home: Yes Firearms in home: Yes Firearms unloaded and locked: Yes Victim of physical abuse: No Victim of emotional abuse: No Victim of sexual abuse: No Would you like helpful sources: No Additional Social history: UTAP Female Reproductive History Menstrual control method: other (Vasectomy) History History 3 Para 2 Hx # Term Pregnancies 2 Multiple births 0 Hx # Pregnancies 0 Ectopic pregnancies 0 AB induced 0 Hx Number of Living Children 1 AB spontaneous 1 Past Pregnancies Del. Date GA/Weeks # Preg Succ Route Wgt Sex Labor Lgth Anesth esia Location [facility] 08/14/16 38 No vaginal 2778.253 g Male 8 hrs [facility] - [facility] solution advisor (Carla) 01/08/19 11/21/19 39 No 3203.496 g Female Lauren Neely Delivery Date: 08/14/16 Last Updated by: Lorene ELLIOTT at home, spont labor, no complications Delivery Date: 01/08/19 Last Updated by: Lorene Marcelino SAB, had unsatisfactory experience with staff, didn't feel well treated Delivery Date: 11/21/19 Last Updated by: Dinorah Goss. Unsuccessful ECV. Malorie. Readmission Within the Past 30 Days Yes or No: Yes Date of First Admission Date of 1st Admission: 03/22/25 Date of this Admission Date of Admission: 03/27/25 This admission was: Through ED Office Visit Since 1st Admission Have you seen your PCP in the office since discharge?: No Speicalist Appointments Have you seen any other specialist since your 1st Admission?: Yes Date you saw the Specialist: 03/24 Specialist Seen: gynecology ED visits How many ED visits in the past 12 months: 2
[2025-03-28 11:23] VITALS: BP 117/67; PULSE 70; RESP 17; TEMP 36.7; O2SAT 100
[2025-03-28 15:00] LABS: Anion Gap 9.4 mmol/L (3-11); BUN 11 mg/dL (9-23); CO2 24.6 mmol/L (20.0-31.0); Calcium 8.4 mg/dL (8.3-10.6); Chloride 109 mmol/L (98-107); Glucose 107 mg/dL (74-106); Potassium 4.0 mmol/L (3.5-5.1); Sodium 143 mmol/L (136-145)
--- NOTE | 2025-03-28 15:17 | W.PM.DS.N ---
Date of service: 03/28/25 Time of Service: 08:00 DS: Diagnosis Discharge Diagnosis (1) AVERY (acute kidney injury): Status: Acute Asessment and Plan: Through Mar 22, renal function unimpaired, creatinine baseline < 1 On arrival, Cr 2.85. Steady downward trend 2.85->2.82->2.27->1.96 Multiple possible etiologies including dehydration, medications, contrast media Antibiotics at previous discharge less likely to be nephrotoxic Other than creatinine, her chemistries are unremarkable UA with protein, consistent with dehydration but BUN is not elevated CT imaging suggestive of hydronephrosis vs pyelonephrosis Will not hold home antibiotics Admitted to [facility], uneventful hospitalization Followup ultrasound expected SundayMar 30 Followup BMP expected Apr 02 Patient has education research analyst followup with Dr Brady on Apr 02 at 1500 Hospitalist service available to review labs and imaging as her care continues (2) Thrombophlebitis of vein of pelvis: Status: Acute Asessment and Plan: Continue metronidazole, ciprofloxacin, enoxaparin (3) S/P hysterectomy: Status: Acute Discharge Plan Disposition Patient Disposition: Home Condition: Improving Discharge Details Reason For Visit: AVERY Admit Date/Time: 03/27/25 15:11 Admit Provider: Joseph Oswald Attending Provider: Joseph Oswald Primary Care Provider: Mikayla Crow Hospital Course Hospital Course: Mita Nogueira is a 39 year old woman presenting March 27 with vomiting. She had laparoscopic hysterectomy and BSO at [facility] March 18 for fibroids and endometriosis, discharged March 20. She returned March 22 and was found to have ovarian vein thrombosis which was determined to be septic. She was treated with ertapenem while hospitalized and discharged Mar 24 on enoxaparin, ciprofloxacin and metronidazole. She took NSAIDs for pain at home. She did not miss any medication doses. On return March 24 she reports having nausea and vomiting soon after arriving home. Some trace hematuria. No fever, no abdominal pain, mild dysuria. No SOB no chest pain. In the ED she was mildly tachycardic HR 101, vitals otherwise unremarkable. CT abdomen/pelvis showed bilaterally enlarged kidneys with decreased perfusion, air in bladder, stable 5 cm right ovarian cyst. No leukocytosis. Hemoglobin 10.8, improved since Mar 24 discharge. Chemistries showing creatinine 2.85 and mildly elevated AST 71. Urine with protein and blood. She was given LR 1L and ondansetron. ObGyn consulted, requesting medical management. PMH includes anxiety and IBS. 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 After admission the patient continued on IV fluids. Morning labs showed improvement in creatinine, and afternoon creatinine was also improved. Patient has excellent support at home and follow up is arranged. She is safe to return home at this time. Home Meds and New Rx's Prescriptions: Continued triamcinolone acetonide 0.1 % cream 1 applic topical BID Qty: 30 1RF Rx Instructions: Apply to rash on ring finger twice daily for 2-4 weeks and then can use PRN sertraline 50 mg tablet 50 mg PO DAILY Qty: 90 3RF Rx Instructions: Take 1 tab daily Probacap 10 billion cell capsule 100 mmu cells PO DAILY acetaminophen 325 mg Tablet 650 mg PO Q6H PRN PRNQty: 0 0RF enoxaparin 80 mg/0.8 mL Syringe 80 mg SC Q12H Qty: 8 2RF ciprofloxacin HCl [Cipro] 500 mg tablet 500 mg PO Q12H Qty: 20 0RF metronidazole 500 mg tablet 500 mg PO BID Qty: 20 0RF Discharge Instructions Additional Instructions: Take enoxaparin ONCE per day until you have lab work Stand Alone Forms: Portal Information, Nursing Discharge Form Referrals: Mikayla Crow NP [Primary Care Provider, Medicine] Referral Note: Your PCP will reach out for a follow up, if you do not hear from him, please reach out. Activity:: Activity as Tolerated Equipment/Supplies:: No Equipment Needed Diet:: As Tolerated Discharge Orders Discharge Orders: Discharge Order (Routine); Ordered 03/28/25 Ordered By: Joseph Oswald Other Ambulatory Orders: Basic Metabolic Panel (Routine) Timeframe: [id number] Facility: [facility] - Location: Laboratory Outpatient - [facility] Ordered By: Joseph Oswald renal (Routine) Timeframe: 20250330 Facility: [facility] - Location: DIAGNOSTIC IMAGING Ordered By: Joseph Oswald Discharge Data Discharge Date/Time-TO BE ENTERED AT DEPARTURE: 03/28/25 16:05 DS: Summary Time Spent with Patient providing and/or coordinating discharge services: Greater than 30 minutes Status at Discharge Functional status at discharge: independent ambulation Overall status at discharge: patient is progressing back to baseline Mental Status: mental status grossly normal Speech and Movement: speech and movement normal Mood: congruent mood Affect: normal affect Quality:SDOH Health Related Social Needs: Health related social needs education Exam Narrative Exam Narrative: General: This is a pleasant woman in no distress HEENT: Normocephalic, atraumatic CV: RRR Resp: CTAB Abd: soft, NTND. Laparoscopic incision sites c/d/i. MSK: voluntary motion x4 Neuro: awake, alert, no focal deficits Psych Mental Status: mental status grossly normal Speech and Movement: speech and movement normal Mood: congruent mood Affect: normal affect DS: Data Vitals/I&O Vitals and I&O: Vital Signs Temperature 36.7 C 03/28/25 11:23 Temperature Source Temporal Artery Scan 03/28/25 11:23 Pulse 70 03/28/25 11:23 Pulse Rhythm Regular 03/27/25 15:56 Respiratory Rate 17 03/28/25 11:23 Respiratory Effort Normal 03/27/25 15:56 Respiratory Depth Normal 03/27/25 15:56 Respiratory Pattern Normal 03/27/25 15:56 Blood Pressure 117/67 03/28/25 11:23 Blood Pressure Mean 83 03/28/25 11:23 Pulse Oximetry 100 03/28/25 11:23 Oxygen Delivery Method Room Air 03/28/25 11:23 Oxygen Flow Rate 0 03/28/25 11:23 Pain Level 0 03/27/25 15:56 Intake & Output 03/27/25 03/28/25 03/28/25 23:59 11:59 23:59 Intake Total 2009 2730.417 / 2970.417 240 / 2970.417 Output Total 2099 2500 / 4000 1500 / 4000 Balance -90 / -90 230.417 / -1029.583 -1260 / -1029.583 Intake: IV 2009 1510.417 / 1510.417 Oral 1220 / 1460 240 / 1460 Output: Urine 2099 2500 / 4000 1500 / 4000 Other: Urine Color Yellow Yellow Yellow Urine Appearance Clear Clear Clear Urine Odor Normal Normal Comment Pt with some bloody discharge from her procedure mixed in with urine # Voids 1 Data Completed and Pending Pending Labs at Discharge: 03/27/25 03/27/25 03/28/25 12:49 14:53 06:20 WBC 9.22 RBC 4.07 Hgb 10.8 L Hct 33.1 L MCV 81 MCH 26.5 L MCHC 32.6 RDW 12.9 Plt Count 297 MPV 9.2 Immature Gran % 0.5 Neutrophils % 76.1 Lymphocytes % 12.3 Monocytes % 6.5 Eosinophils % 4.4 Basophils % 0.2 Nucleated RBC % 0.0 Absolute Neutrophils 7.01 H Absolute Lymphocytes 1.13 L Absolute Monocytes 0.60 Absolute Eosinophils 0.41 Absolute Basophils 0.02 PT 11.2 H INR 1.1 APTT 37.2 H Sodium 141 140 145 Potassium 4.0 4.3 4.5 Chloride 109 H 109 H 112 H Carbon Dioxide 22.1 22.2 22.9 Anion Gap 9.9 8.8 10.1 BUN 19 18 14 Creatinine 2.85 H 2.82 H 2.27 H Est GFR (CKD-EPI 2020) 18.48 18.71 24.03 Glucose 86 89 116 H Calcium 8.9 8.4 8.4 Phosphorus 3.9 Magnesium 2.2 Total Bilirubin 0.50 AST 71 H ALT 49 Alkaline Phosphatase 83 Total Protein 7.4 Albumin 4.6 3.9 Lipase 33 Urine Color Yellow Urine Clarity Clear Urine pH 5.5 Ur Specific [place] 1.010 Urine Protein 30 H Urine Ketones Negative Urine Blood Moderate H Urine Nitrite Negative Urine Bilirubin Negative Urine Urobilinogen 0.2 Ur Leukocyte Esterase Trace H Urine RBC 3-5 H Urine WBC 5-10 Ur Epithelial Cells Few Urine Crystals Negative Urine Bacteria Few Urine Casts Negative Urine Mucus Negative Ur Culture Indicated? No Urine Glucose Negative 03/28/25 14:15 WBC RBC Hgb Hct MCV MCH MCHC RDW Plt Count MPV Immature Gran % Neutrophils % Lymphocytes % Monocytes % Eosinophils % Basophils % Nucleated RBC % Absolute Neutrophils Absolute Lymphocytes Absolute Monocytes Absolute Eosinophils Absolute Basophils PT INR APTT Sodium 143 Potassium 4.0 Chloride 109 H Carbon Dioxide 24.6 Anion Gap 9.4 BUN 11 Creatinine 1.96 H Est GFR (CKD-EPI 2020) 28.47 Glucose 107 H Calcium 8.4 Phosphorus Magnesium Total Bilirubin AST ALT Alkaline Phosphatase Total Protein Albumin Lipase Urine Color Urine Clarity Urine pH Ur Specific [place] Urine Protein Urine Ketones Urine Blood Urine Nitrite Urine Bilirubin Urine Urobilinogen Ur Leukocyte Esterase Urine RBC Urine WBC Ur Epithelial Cells Urine Crystals Urine Bacteria Urine Casts Urine Mucus Ur Culture Indicated? Urine Glucose PFSH All Active Problems (Updated 03/29/25 @ 00:03 by InfectiousDESMOND) Nausea & vomiting (Acute) AVERY (acute kidney injury) (Acute) Thrombophlebitis of vein of pelvis (Acute) Status post total laparoscopic hysterectomy. 03/18/2025. On Lovenox therapy. Postoperative fever (Acute) S/P hysterectomy (Acute) 03/18/2025. Total laparoscopic hysterectomy with bilateral salpingectomy Bone bruise (Acute) Internal derangement of right knee (Acute 11/20/24) Knee pain, right anterior (Acute) Sinusitis (Acute) Obesity (BMI 30-39.9) (Chronic) Degenerative joint disease (DJD) of lumbar spine (Chronic) MRI 07/2022 Lumbar back pain with radiculopathy affecting lower extremity (Chronic) Long COVID (Chronic) Parosmia (Chronic) Internal hemorrhoids (Chronic) Generalized anxiety disorder (Chronic) Hyperlipidemia (Chronic) Irritable bowel syndrome with constipation and diarrhea (Chronic) Left carpal tunnel syndrome (Chronic) Medical History (Updated 03/29/25 @ 00:03 by FitzealBerry SAM) Needle phobia Anesthesia Pt. has significant anesthesia with IV start, would like skilled staff to do it one that is more likely to get it on first try if possible, and would absolutely like MKO prior to IV start! (03/16/25) Family history of thyroid disease COVID-19 virus infection Positive PCR 08/16/20 Surgical History (Updated 03/29/25 @ 00:03 by FitzealBerry SAM) Hx of wisdom tooth extraction S/P section (11/21/19) LTCS. Breech. [id number]. Malorie. History of repair of anterior cruciate ligament of right knee (03/09/04) S/P colonoscopy (06/25/18) Family History Mother Hyperlipidemia Hypothyroidism Asthma Type 2 diabetes mellitus Hypertension Father Hyperlipidemia Type 2 diabetes mellitus Sister Hyperlipidemia Depression Palindromic rheumatism Suspected Pericarditis Fibromyalgia Son No problems noted. Daughter No problems noted. Paternal Grandfather , in his 60s Myocardial infarction Heart disease Lung cancer Hyperlipidemia Alcohol abuse Paternal Grandmother , at 81 Lung cancer Type 2 diabetes mellitus Maternal Grandfather Alcohol abuse COPD (chronic obstructive pulmonary disease) Depression Heart disease Hyperlipidemia Hypertension Hypothyroidism Maternal Grandmother Colon cancer Social History Smoking/Tobacco Use Status: Never Second Hand Exposure: Yes Smoking risk assessment performed?: Yes Alcohol Intake: never Drug use: Never Substance use type: does not use Adopted: No Caregiver/Support person: No Household members: spouse, children and other Details: 2023. H- Adrian, son Fabian 7 and daughter Lorelei 3.5 Housing: house Number of Children: 2 number of grandchildren: 1 Communication Needs: None Education Level: college Details: 4yrs Do you need help understanding health information?: Rarely current occupation: [employer]. [employer] Pets and animals: Yes Pets and animals: cat(s) Sexually active: Yes Do you think of yourself as: straight/heterosexual Current gender identity: female What is your relationship status?: How often do you talk on the phone with friends or family?: three or more times per week How often do you get together with friends or relatives?: three or more times per week How often do you attend yazdanism or hoahaoism services?: decline to answer Do you belong to any clubs or organized social groups?: yes Panel score (0-1 are the most socially isolated patients): 3 What type of physical activity do you participate in: aerobic, regular exercise, other Details: [place] class, wourkout wilner and yoga Duration: 60-90 minutes/day Frequency: 1-2 times per week Kylee/Congregational: None Special kylee needs: No Seatbelt use: always Helmet use: Yes Helmet use: always Drive intox or ride w/intox spotter driver: No Working smoke detector in home: Yes Carbon monox detector in home: Yes Firearms in home: Yes Firearms unloaded and locked: Yes Victim of physical abuse: No Victim of emotional abuse: No Victim of sexual abuse: No Would you like helpful sources: No Additional Social history: UTAP Female Reproductive History Menstrual control method: other (Vasectomy) History History 3 Para 2 Hx # Term Pregnancies 2 Multiple births 0 Hx # Pregnancies 0 Ectopic pregnancies 0 AB induced 0 Hx Number of Living Children 1 AB spontaneous 1 Past Pregnancies Del. 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 Brejennifer. Unsuccessful ECV. Malorie. Time Spent with Patient Time Spent with Patient: <45 minutes Time was spent: preparing to see the patient(eg.review tests), obtaining and/or reviewing separately otained hiistory, ordering medications,tests, procedures, referring, communicating with other health health careers instructor, indepentently interpreting results, counseling the patient and care coordination
== END 2025-03-28 16:05 | disposition home or self-care (01) ==
LOC: ER 14:24 → MS 16:10
PROVIDERS: Family Medicine; Admitting Provider Family Medicine; Emergency Provider Emergency Medicine; PCP Nurse Practitioner Family; Responsible Provider Family Medicine; Visit Provider Family Medicine
DX: N17.9 Acute kidney failure, unspecified (principal); R00.0 Tachycardia, unspecified; R11.2 Nausea with vomiting, unspecified; I80.8 Phlebitis and thrombophlebitis of other sites; F41.1 Generalized anxiety disorder; N83.201 Unspecified ovarian cyst, right side; Z90.710 Acquired absence of both cervix and uterus; R13.10 Dysphagia, unspecified; E66.9 Obesity, unspecified; M47.26 Other spondylosis with radiculopathy, lumbar region; R43.1 Parosmia; U09.9 Post COVID-19 condition, unspecified; K58.2 Mixed irritable bowel syndrome; E78.5 Hyperlipidemia, unspecified; R79.89 Other specified abnormal findings of blood chemistry; N28.81 Hypertrophy of kidney; R31.9 Hematuria, unspecified
CPT/HCPCS: 00123; 36415; 80048; 80053; 80069; 83690; 96361; 96374; 99285; 74177; 81003; 81015; 83735; 85025; 85610; 85730; 99222; 99239; G0378; J0780; J1650; J2405; J3490

== ENCOUNTER 2025-04-02 01:48 | Outpatient (CLI) | payer OTHER, SELFPAY ==
[2025-04-02 14:58] LABS: Anion Gap 10.2 mmol/L (3-11); BUN 12 mg/dL (9-23); CO2 26.8 mmol/L (20.0-31.0); Calcium 8.9 mg/dL (8.3-10.6); Chloride 105 mmol/L (98-107); Glucose 91 mg/dL (74-106); Potassium 3.5 mmol/L (3.5-5.1); Sodium 142 mmol/L (136-145)
== END 2025-04-02 01:49 | disposition home or self-care (01) ==
LOC: LBO 01:48
PROVIDERS: PCP Nurse Practitioner Family; Visit Provider Family Medicine
DX: N17.9 Acute kidney failure, unspecified (principal)
CPT/HCPCS: 36415; 80048

== ENCOUNTER 2025-04-09 01:38 | Outpatient (CLI) | payer OTHER, SELFPAY ==
[2025-04-09 09:52] LABS: Abs Immature Grans 0.02 10^3/uL (0.0-0.06); HCT 32.3 % (36.0-46.0); HGB 10.3 g/dL (11.2-15.7); Immature Grans % 0.3 %; MCH 26.1 pg (27.0-33.0); MCHC 31.9 % (32.0-36.0); MCV 82 fL (80-95); MPV 9.7 fL (8.0-11.0); Platelet Count 388 10^3/uL (130-400); RBC 3.94 10^6/uL (3.93-5.22); RDW 13.2 % (11.7-14.6); RDW-SD 39.4 fL; WBC 5.76 10^3/uL (4.4-10.8)
[2025-04-09 11:18] LABS: ALT 18 U/L (10-49); AST 20 U/L (<34); Albumin 4.4 g/dL (3.2-5.0); Alkaline Phosphatase 81 U/L (46-116); Anion Gap 10.3 mmol/L (3-11); BUN 11 mg/dL (9-23); Bilirubin, Total 0.5 mg/dL (0.2-1.2); CO2 25.7 mmol/L (20.0-31.0); Calcium 9.2 mg/dL (8.3-10.6); Chloride 103 mmol/L (98-107); Glucose 82 mg/dL (74-106); Potassium 4.3 mmol/L (3.5-5.1); Sodium 139 mmol/L (136-145); Total Protein 6.6 g/dL (5.7-8.2)
== END 2025-04-09 01:39 | disposition home or self-care (01) ==
LOC: LBO 01:38
PROVIDERS: PCP Nurse Practitioner Family; Visit Provider Obstetrics & Gynecology
DX: Z90.710 Acquired absence of both cervix and uterus (principal); I80.8 Phlebitis and thrombophlebitis of other sites; N17.9 Acute kidney failure, unspecified
CPT/HCPCS: 36415; 80053; 85025

== ENCOUNTER 2025-04-14 10:20 | Outpatient (REF) | payer OTHER, SELFPAY | END 2025-04-14 10:21 | disposition home or self-care (01) | LOC: LBN 10:20 | PROVIDERS: PCP Nurse Practitioner Family; Visit Provider Obstetrics & Gynecology | DX: N76.0 Acute vaginitis (principal) | CPT/HCPCS: 87480; 87510; 87660 ==

== ENCOUNTER 2025-04-14 10:46 | Outpatient (CLI) | payer OTHER, SELFPAY ==
[2025-04-14 10:48] LABS: Abs Immature Grans 0.02 10^3/uL (0.0-0.06); HCT 33.6 % (36.0-46.0); HGB 10.7 g/dL (11.2-15.7); Immature Grans % 0.3 %; MCH 26.3 pg (27.0-33.0); MCHC 31.8 % (32.0-36.0); MCV 83 fL (80-95); MPV 9.5 fL (8.0-11.0); Platelet Count 307 10^3/uL (130-400); RBC 4.07 10^6/uL (3.93-5.22); RDW 13.4 % (11.7-14.6); RDW-SD 40.2 fL; WBC 6.00 10^3/uL (4.4-10.8)
[2025-04-14 11:04] LABS: Lipase 38 U/L (<53)
[2025-04-14 11:06] LABS: ALT 16 U/L (10-49); AST 16 U/L (<34); Albumin 4.6 g/dL (3.2-5.0); Alkaline Phosphatase 88 U/L (46-116); Anion Gap 9.6 mmol/L (3-11); BUN 9 mg/dL (9-23); Bilirubin, Total 1.0 mg/dL (0.2-1.2); CO2 24.4 mmol/L (20.0-31.0); Calcium 9.0 mg/dL (8.3-10.6); Chloride 105 mmol/L (98-107); Glucose 87 mg/dL (74-106); Potassium 4.0 mmol/L (3.5-5.1); Sodium 139 mmol/L (136-145); Total Protein 7.2 g/dL (5.7-8.2)
== END 2025-04-14 10:47 | disposition home or self-care (01) ==
LOC: LBO 10:47
PROVIDERS: PCP Nurse Practitioner Family; Visit Provider Obstetrics & Gynecology
DX: R11.2 Nausea with vomiting, unspecified (principal)
CPT/HCPCS: 36415; 80053; 83690; 85025